=== PATIENT | female | born 1960 | race Caucasian/White ===

== ENCOUNTER → 2019-09-24 17:25 | Outpatient (CLI) | payer MEDICAID, SELFPAY ==
--- NOTE | ~2019-09-24 | XR_ITS ---
XR foot LT min 3V 09/24/2019 17:58 INDICATION: Left foot pain PROCEDURE: 4 views left foot COMPARISON: No prior studies for comparison. FINDINGS: Fracture, dislocation or subluxation is not identified. Osteopenia. Lisfranc joint intact. There is moderate osteoarthritis first MTP joint. Small degenerative calcaneal enthesophyte at the pl orlin surface. The soft tissues appear within normal limits. No foreign bodies are identified. IMPRESSION: 1: NO ACUTE BONE OR JOINT ABNORMALITY IDENTIFIED. Reviewed, dictated and finalized at location A.
--- NOTE | ~2019-09-24 | XR_ITS ---
XR lumbar spine min 4V 09/24/2019 17:58 Indication: Low back pain Procedure: 5 views lumbar spine Comparison: No prior studies for comparison. Findings: There is moderate disc narrowing at L3-4, L4-5 and L5-S1 with vacuum phenomena at L4-5. The re is moderate multilevel facet hypertrophy. No acute fracture or traumatic malalignment. Mild levocu rvature of the lumbar spine centered at L4. There are cholecystectomy clips. Sacral foramen are symme tric. Impression: 1: Moderate lumbar spondylosis. Reviewed, dictated and finalized at location A. Impression: 1: Moderate lumbar spondylosis.
== END ==
PROVIDERS: PCP Family Medicine; Visit Provider Family Medicine
DX: G89.29 Other chronic pain (principal); M79.672 Pain in left foot; M54.41 Lumbago with sciatica, right side; M47.896 Other spondylosis, lumbar region
CPT/HCPCS: 72110; 73630

== ENCOUNTER 2020-03-31 14:10 | Outpatient (CLI) | payer OTHER, SELFPAY ==
--- NOTE | ~2020-03-31 | XR_ITS ---
EXAMINATION: XR chest 2V DATE: 03/31/2020 14:41 INDICATION: Chronic obstructive pulmonary disease with acute exacerbation. TECHNIQUE: Frontal and lateral views of the chest were obtained. COMPARISON: Chest single view 05/05/2012 FINDINGS: The lungs are hyperexpanded with lucencies in the upper lungs, consistent with emphysema. T here is mild atelectasis at left lung base. No pleural effusion or pneumothorax. The heart size is no rmal. IMPRESSION: 1. Mild atelectasis at left lung base. 2. Emphysema. Reviewed, dictated and finalized at location A.
== END 2020-03-31 14:11 | disposition home or self-care (01) ==
PROVIDERS: PCP Family Medicine; Visit Provider Nurse Practitioner
DX: J44.1 Chronic obstructive pulmonary disease with (acute) exacerbation (principal); J98.11 Atelectasis; J43.9 Emphysema, unspecified
CPT/HCPCS: 71046

== ENCOUNTER 2020-04-06 08:13 | Outpatient (CLI) | payer OTHER, SELFPAY ==
--- NOTE | ~2020-04-06 | MM_ITS ---
EXAMINATION: MM screening rossy BI w delta HISTORY: Screening mammogram TECHNIQUE: Craniocaudal and mediolateral oblique 3-D tomosynthesis images were obtained and synthetic 2-D images were generated. CAD analysis was submitted and interpreted. COMPARISON: 12/30/2018, 12/06/2017, 09/15/2016 bilateral digital screening mammogram examinations BREAST PARENCHYMAL COMPOSITION: The breasts are almost entirely fatty. FINDINGS: There is no evidence of suspicious mass, calcification, or architectural distortion to sugg est malignancy in either breast. There has been no suspicious interval change. IMPRESSION: 1. No mammographic evidence of malignancy. 2. Recommend routine screening mammography in one year. BI-RADS Category 1: Negative Reviewed, dictated and finalized at location A.
== END 2020-04-06 08:14 | disposition home or self-care (01) ==
LOC: ANHIMG 08:16
PROVIDERS: PCP Family Medicine; Visit Provider Nurse Practitioner Obstetrics & Gynecology
DX: Z12.31 Encounter for screening mammogram for malignant neoplasm of breast (principal)
CPT/HCPCS: 77063; 77067

== ENCOUNTER 2020-05-12 13:17 | Outpatient (CLI) | payer OTHER, SELFPAY ==
[2020-05-12 14:05] VITALS: PULSE 100; O2SAT 93
[2020-05-12 14:10] VITALS: PULSE 105; O2SAT 85
[2020-05-12 14:15] VITALS: PULSE 107; O2SAT 87
[2020-05-12 14:20] VITALS: PULSE 118; O2SAT 90
[2020-05-12 14:35] VITALS: PULSE 102; O2SAT 93
--- NOTE | 2020-05-12 14:42 | HOMEO2EVAL ---
Home Oxygen Evaluation RC: Home Oxygen (O2) Evaluation Start: 05/12/20 14:33 Freq: Status: Active Protocol: RPE Activity Type Activity Date Activity User E-Sign Co-Sign Detail Recorded Client Recorded Date Recorded By Document 05/12/20 14:05 DJO [id number] 05/12/20 14:35 DJO Document 05/12/20 14:10 [email or web address] [id number] 05/12/20 14:35 DJO Document 05/12/20 14:15 [email or web address] [email or web address] 05/12/20 14:35 DJO Document 05/12/20 14:20 [email or web address] [email or web address] 05/12/20 14:35 DJO Document 05/12/20 14:35 [email or web address] [id number] 05/12/20 14:35 DJO 05/12/20 05/12/20 05/12/20 14:05 14:10 14:15 Home O2 Evaluation Test Phase Resting Exercise Exercise Oxygen Delivery Room Air Room Air Nasal Cannula Oxygen Flow Rate (L/min) 1 Pulse Oximetry (90-100 %) 93 85 L 87 L Pulse Rate (60-100 beats/min) 100 105 H 107 H Activity Tolerance Rating of Perceived Dyspnea (PD) Ambulation Distance (feet) Treatment Charges O2 Evaluation 05/12/20 05/12/20 14:20 14:35 Home O2 Evaluation Test Phase Exercise Resting Oxygen Delivery Nasal Cannula Room Air Oxygen Flow Rate (L/min) 2 Pulse Oximetry (90-100 %) 90 93 Pulse Rate (60-100 beats/min) 118 H 102 H Activity Tolerance Fair Rating of Perceived Dyspnea (PD) +3 Moderate Difficulty, But Can Continue Ambulation Distance (feet) 300 Treatment Charges
--- NOTE | 2020-05-15 12:50 | WPDPFTINT ---
PFT Interpretation PFT Interpretation: This PFT met all criteria for ATS standards and reproducibility FEV/FVC post bronchodilator 42% FEV1 31% or 0.79 liters FVC 56% or 1.90 liters TLC 136% or 7.50 liters RV 261% RV/TLC 73% DLCO 27% when adjusted for alveolar volume but not adjusted for hemoglobin Flow volume loops showed severe expiratory coving Impression: Severe airflow obstruction with hyperinflation, air trapping and severely reduced diffusion capacity. This pattern is suggestive of COPD. Clinical correlation is advised.
== END 2020-05-12 13:18 | disposition home or self-care (01) ==
LOC: ANHPFT 13:20
PROVIDERS: PCP Family Medicine; Visit Provider Nurse Practitioner
DX: J44.9 Chronic obstructive pulmonary disease, unspecified (principal); R94.2 Abnormal results of pulmonary function studies
CPT/HCPCS: 94060; 94618; 94726; 94729

== ENCOUNTER → 2020-10-05 12:10 | Outpatient (CLI) | payer OTHER, SELFPAY ==
--- NOTE | ~2020-10-05 | XR_ITS ---
XR knee LT 3V DATE: 10/05/2020 12:29 INDICATION: Left knee pain TECHNIQUE: [place], AP and crosstable lateral views COMPARISON: None FINDINGS: No fracture or dislocation or joint effusion. There is moderate loss of medial compartment joint space height. No radiopaque intra-articular loose body or chondrocalcinosis. No periosteal reac tion or bone destruction. IMPRESSION: Moderate loss of height of medial compartment joint space Reviewed, dictated and finalized at location B.
== END ==
PROVIDERS: PCP Family Medicine; Visit Provider Family Medicine
DX: M25.562 Pain in left knee (principal)
CPT/HCPCS: 73562

== ENCOUNTER 2020-10-27 14:48 | Outpatient (RCR) | payer OTHER, SELFPAY ==
--- NOTE | 2020-10-27 15:46 | PCPTNOTE ---
pt to dept for PT lymphedema evaluation. Talked with pt, she has an open wound over L lower leg ~ 3 cm wide and has orders for wound care clinic. Discussed with pt that she needs to have wound closed before have lymphedema treatment to LE's; she also has orders for pulmonary rehab for new oxygen use and COPD diagnosis. Talked with pt about 20 minutes, about lymphedema, wound care, issued lymphedema handout and general LE precautions. She asked questions and voiced understanding of above. I will contact Dr office and inform of above, and when wound is closed, to start lymphedema treatment.
== END 2020-10-27 15:48 | disposition home or self-care (01) ==
LOC: ANHPT 14:48
PROVIDERS: PCP Family Medicine; Visit Provider Family Medicine
DX: I87.2 Venous insufficiency (chronic) (peripheral) (principal); M25.562 Pain in left knee; M25.551 Pain in right hip
CPT/HCPCS: 99199

== ENCOUNTER 2020-11-07 10:00 | Inpatient (IN) | payer OTHER, SELFPAY ==
[2020-11-07] VITALS (9 sets, daily range): BP systolic 103–144; BP diastolic 60–86; PULSE 95–109; RESP 16–20; TEMP 35.6–36.4; O2SAT 94–100; BMI 38.5
--- NOTE | ~2020-11-07 | NM_ITS ---
EXAMINATION: NM renal flow and function DATE: 11/18/2020 08:51 INDICATION: Acute renal injury TECHNIQUE: 10 mCi Tc-99m MAG3 was administered IV. The patient was scanned in the supine position. A posterior abdominal radionuclide angiogram was obtained. A subsequent time course of static images o f the kidneys, ureters, and bladder was obtained. COMPARISON: None FINDINGS: The posterior abdominal radionuclide angiogram and sequential static images show normal size, positio n, and morphology of the kidneys. No central photopenic defect to suggest hydronephrosis. Peak renal parenchymal uptake was >30 min in left kidney and >30 min in right kidney (normal peak 3-5 minutes) w ith continually rising activity curves at both kidneys. The relative early renal uptake was 46% on t he left and 54% on the right (<40% is abnormal). No abnormalities of the ureters or bladder are seen . IMPRESSION: 1. Symmetric kidney function. 2. Marked delay in activity clearance from both kidneys with continually rising renal activity curve s throughout the 30 minutes of imaging consistent with severe bilateral nonspecific nephropathy. Reviewed, dictated and finalized at location A. IMPRESSION: 1. Symmetric kidney function. 2. Marked delay in activity clearance from both kidneys with continually risin g renal activity curves throughout the 30 minutes of imaging consistent with se maciej bilateral nonspecific nephropathy.
--- NOTE | ~2020-11-07 | CT_ITS ---
EXAMINATION: CT tibia/fibula LT wo con DATE: 11/07/2020 17:35 INDICATION: Cellulitis TECHNIQUE: High resolution computed tomography (CT) of the left lower leg was performed without intra venous contrast. Additional sagittal and coronal reconstructions were performed. Automated exposure c ontrol and iterative reconstruction technique were employed. The dose-length product was 895.26 mGy-c m. COMPARISON: Left knee radiographs dated 10/05/2020 FINDINGS: Bone alignment is normal. No fracture. Mild osteoarthritis in the medial compartment of the left knee . No left knee joint effusion. Small enchondroma in the distal femur. No cortical erosions or periost eal reaction. There is skin thickening and diffuse subcutaneous edema mild at the cephalad aspect of the lower leg in increasing in severity extending to the ankle and over the visualized portion of the mid and hindfoot. There is a deep skin ulceration at the medial aspect of the distal lower leg. No m ore remote soft tissue gas to suggest necrotizing fasciitis. No ankle joint effusion. IMPRESSION: 1. Deep skin ulceration at the medial aspect of the distal lower leg with diffuse skin thickening and subcutaneous edema throughout the lower leg consistent with given history of cellulitis. 2. Mild osteoarthritis in the medial compartment of the left knee. No acute osseous abnormality. Reviewed, dictated and finalized at location A. IMPRESSION: 1. Deep skin ulceration at the medial aspect of the distal lower leg with diffu se skin thickening and subcutaneous edema throughout the lower leg consistent w ith given history of cellulitis. 2. Mild osteoarthritis in the medial compartment of the left knee. No acute oss eous abnormality.
--- NOTE | ~2020-11-07 | XR_ITS ---
EXAMINATION: XR fl guide central line place EXAM DATE: 11/18/2020 15:39 INDICATION: Insertion of tunneled dialysis catheter. TECHNIQUE: Fluoroscopy used during XR fl guide central line place performed by Dr. Gurpreet Franklin MD. Radiologist was not present for the imaging or procedure. Total fluoroscopic time of 108 second s. The DAP for this procedure was 0.19 mGym2. A total of 2 images sent to PACS from the exam. Corre lation is made to preoperative chest x-ray. FINDINGS: Frontal image available demonstrates tip of dialysis catheter projecting over the cavoatri al junction. Correlate with procedure note. IMPRESSION: Fluoroscopy used during dialysis catheter placement. Reviewed, dictated and finalized at location B.
--- NOTE | ~2020-11-07 | XR_ITS ---
EXAMINATION: XR chest port-a-cath/central EXAM DATE: 11/18/2020 15:59 INDICATION: Tunneled catheter insertion. TECHNIQUE: Portable AP frontal chest x-ray was obtained. Comparison is made to prior examination from earlier same date. FINDINGS: There is a right-sided IJ approach double lumen dialysis catheter, tip projecting over the cavoatrial junction. Some chronic hyperinflation. Linear left basilar atelectasis. No confluent conso lidation, pneumothorax or pleural effusion suspected. Cardiomediastinal silhouette is normal. Probabl e bilateral calcific tendinosis of rotator cuff. IMPRESSION: 1. No evidence postprocedure pneumothorax. 2. Catheter tip at expected position. 3. Left basilar subsegmental atelectasis. 4. Hyperinflation. Reviewed, dictated and finalized at location B.
--- NOTE | ~2020-11-07 | XR_ITS ---
EXAMINATION: XR abdomen obstructive series DATE: 11/11/2020 15:48 INDICATION: Nausea TECHNIQUE: Supine and upright views of the abdomen. FINDINGS: 09/01/2008 The visualized lung parenchyma is normal.. There is a nonobstructive bowel gas pattern. Gas and stool are seen throughout the colon to the level of the rectum. There is no free air. There is left basil ar atelectasis. Small left pleural effusion. IMPRESSION: 1. No acute abdominal abnormality. 2: Left basilar atelectasis. 2: Small left pleural effusion. Reviewed, dictated and finalized at location B.
--- NOTE | ~2020-11-07 | XR_ITS ---
EXAMINATION: XR chest 1V portable INDICATION: Fluid overload TECHNIQUE: Portable AP chest at 1301 hours COMPARISON: 03/31/2020 FINDINGS: The lungs are hyperinflated but free of acute opacities. There is no pleural effusion or pn eumothorax. The cardiomediastinal silhouette is normal. There is calcified atherosclerosis. IMPRESSION: 1. No acute cardiopulmonary abnormality. Reviewed, dictated and finalized at location A.
--- NOTE | ~2020-11-07 | US_ITS ---
EXAMINATION:US venous doppler LE LT INDICATION:Left lower extremity swelling TECHNIQUE: Multiple grayscale, color flow and Doppler images of the left lower extremity deep venous systems were obtained and reviewed. COMPARISON:No prior studies for comparison. FINDINGS: The common femoral, superficial femoral and popliteal veins demonstrate normal respiratory variation, augmentation and compressibility. Color flow is also seen within the posterior tibial, pe roneal, greater saphenous and profunda veins. IMPRESSION: 1: No lower extremity deep venous thrombosis. Reviewed, dictated and finalized at location B.
--- NOTE | ~2020-11-07 | US_ITS ---
US renal BI 11/11/2020 11:46 Procedure: Realtime transabdominal ultrasound of the kidneys and bladder. Indication: Acute renal insufficiency Comparison: No prior studies Findings: Renal echotexture is normal bilaterally without hydronephrosis, contour deforming mass or r enal calculus. The right kidney measures 9.9 cm and left kidney measures 9.9 cm. Bladder is not well distended for evaluation of wall thickening. Impression: 1: Unremarkable renal ultrasound. No stones, masses or hydronephrosis. Reviewed, dictated and finalized at location B. Impression: 1: Unremarkable renal ultrasound. No stones, masses or hydronephrosis.
[2020-11-07 10:17] LABS: Basophils Percent Auto 0.4 % (0.2-1.2); Eosinophils Absolute Auto 0.1 K/mm3 (0-0.3); Eosinophils Percent Auto 1.3 % (0-4.4); Hematocrit 36.6 % (37.0-47.0); Hemoglobin 11.4 g/dL (12.0-15.0); Immature Granulocyte Absolute 0.05 K/mm3 (0.00-0.031); Immature Granulocyte Percent A 0.7 % (0-0.5); Lymphocytes Absolute Auto 1.42 K/mm3 (0.9-3.2); Lymphocytes Percent Auto 18.9 % (18.3-44.2); Mean Corpuscular HGB Conc 31.1 g/dl (32-36); Mean Corpuscular Volume 93.1 fl (80-100); Mean Platelet Volume 9.3 fl (7.4-10.4); Monocytes Absolute Auto 0.7 K/mm3 (0.1-0.6); Monocytes Percent Auto 8.7 % (2.6-8.5); Neutrophils Absolute Auto 5.3 K/mm3 (1.3-6.7); Platelet Count Result 369 k/mm3 (150-375); Red Blood Count 3.93 M/mm3 (4.2-5.4); Red Cell Distribution Width 12.1 % (11.5-14.5); White Blood Count 7.5 K/mm3 (4.5-10.0)
[2020-11-07 10:29] LABS: Anion Gap 5 mmol/L (8-16); Blood Urea Nitrogen 31 mg/dL (7-17); Calcium 9.4 mg/dL (8.4-10.2); Carbon Dioxide 37 mmol/L (22-30); Chloride 99 mmol/L (98-107); Estimated CRCL calculation 63 ml/min; Estimated Glomerular Filt Rate 51; Glucose 116 mg/dL (65-105); Potassium 3.9 mmol/L (3.4-5.0); Sodium 141 mmol/L (137-145)
--- NOTE | 2020-11-07 11:37 | ED.WOUNDLAC ---
HPI - Wound/Laceration General Chief Complaint: Extremity Injury, Lower Stated Complaint: left leg cellulitis Time Seen by Provider: 11/07/20 11:36 History of Present Illness HPI narrative: CHronic LLE wound treated by wound care. On clindamycin since 11/02. Today at wound care they were concerned due to increased swelling and redness around the wound. No fever, chills, nausea, vomiting. Related Data Home Medications Medication Instructions Recorded Confirmed cyanocobalamin (vitamin B-12) 1,000 mcg PO DAILY 07/28/20 11/07/20 1,000 mcg tablet vitamins A,C,I-wyez-rrjkxr 14,320 1 cap PO BID 08/10/20 11/07/20 unit-226 mg-200 unit capsule fluticasone propion-salmeterol 1 inh INHALATION Q12H 11/07/20 11/07/20 [Wixela Inhub] furosemide 20 mg PO BID PRN 11/07/20 11/07/20 Allergies Allergy/AdvReac Type Severity Reaction Status Date / Time cefuroxime Allergy Unknown Fever Verified 01/23/19 13:30 hydromorphone Allergy Unknown Low blood Verified 11/12/18 14:30 pressure ioversol Allergy Unknown Urticaria Verified 11/12/18 14:28 meperidine Allergy Unknown Low blood Verified 11/12/18 14:28 pressure oxycodone Allergy Unknown INCREASED Verified 11/21/16 19:11 PAIN Sulfa (Sulfonamide Allergy Unknown Joint pain Verified 11/12/18 14:27 Antibiotics) sulfanilamide Allergy Unknown Unknown Verified 11/07/20 11:42 levofloxacin [From Levaquin] AdvReac Muscle Pain Verified 11/07/20 11:42 Contrast Media Allergy Intermediate hives Uncoded 06/09/16 11:03 HYDROMORPHONE HCL AdvReac Intermediate Low blood Uncoded 11/07/20 15:23 pressure Review of Systems Review of Systems: All systems reviewed & are unremarkable except as noted in HPI and below Constitutional: Constitutional: Denies chills, Denies fever(s) and Denies weakness Eyes: Eyes: Reports no additional eye complaints ENT: Reports system reviewed and no additional complaints, except as documented Cardiovascular: Cardiovascular: Denies chest pain Respiratory: Respiratory: Denies dyspnea Gastrointestinal: Gastrointestinal: Denies abdominal pain, Denies nausea and Denies vomiting Genitourinary: Genitourinary: Reports no additional female genitourinary complaints Musculoskeletal: Musculoskeletal: Denies back pain Neurologic: Denies dizziness, Denies numbness and Denies weakness [facility] Past Medical History Medical History Abnormal fasting glucose Acute bronchitis Acute pain of left knee Benign essential HTN BMI greater than 40 Cellulitis, leg Chronic bilateral low back pain with right-sided sciatica Chronic depression Chronic neck pain Chronic pain in left foot COPD (chronic obstructive pulmonary disease) Dry skin Edema of both lower extremities due to peripheral venous insufficiency Gastro-esophageal reflux disease without esophagitis Hypertension Lung malignancy non-small cell lung cancer and left lower lobe treated with radiation treatment December 28, 2016 Obstructive sleep apnea Osteoarthritis of right hip Stage 4 very severe COPD by GOLD classification pulmonary function study on March 13, 2019 reveals very severe COPD Venous stasis dermatitis of both lower extremities Venous stasis ulcer Venous ulcer of leg Vitamin B12 deficiency anemia Vitamin D deficiency, unspecified Surgical History Surgical History History of appendectomy History of cholecystectomy History of nasal surgery Family History Family History Mother Diabetes mellitus Acute myocardial infarction, Onset Age: 76 Family history of coronary artery disease Family history of chronic obstructive pulmonary disease Hypertension Cerebrovascular accident Sibling Hypertension Grandparent Hypertension, Onset Age: 64 Cerebrovascular accident, Onset Age: 64 Father Family history of cardiovascu
--- NOTE | 2020-11-07 11:57 | PC.NURSE ---
Pt to radiology at this time.
[2020-11-07 12:11] LABS: Alanine Aminotransferase 21 U/L (4-35); Alkaline Phosphatase 101 U/L (38-126); Aspartate Amino Transferase 26 U/L (14-36); Bilirubin,Total 0.2 mg/dL (0.2-1.3)
--- NOTE | 2020-11-07 15:00 | PC.NURSE ---
This patient, Ricardo Mendez, was admitted to Medical Room 346-01. Patient/family oriented to hospital policies and general routines including ID bracelet, bed and alarms, visiting hours, pain management, procedures, bathroom and other care routines, personal items, smoking policy, room service/diet, and visiting hours. Information on how to activate the Rapid Response Team has been discussed. Patient/Family are encouraged to report perceived risks to care and to ask questions if they do not understand what they are told or what they should do.
--- NOTE | 2020-11-07 15:45 | PM.IMHP ---
H&P: HPI History of Present Illness Date/Time: 11/07/20 15:45 This 59-year-old female who prsent to the ED with wound to her left leg. She has chronic left lower extremity edema for unclear reason since past 2 years. she states approximately 2 weeks ago her dog bumped into her left leg and she developed a large blood blister to the area. Then the area started to pop up and started draining. she was then sent to wound care and getting dressing changes. she also has been on clindamycin oral which she is already taking. she reports inspite of this the wound continued to drain and increased the swelling in her legs. she rpeorts mild fever but no chills. no abdominal pain, nausea, vomitng. she consuelo oxygen for her underlyign COPD since july. she quitted smoking 2015. Chief Complaint: left leg swelling and non healing ulcer Review of Systems Review of Systems: Narrative: - CONSTITUTIONAL: Denies weight loss, fever and chills. - HEENT: Denies changes in vision and hearing - RESPIRATORY: Denies SOB and cough. - CV: Denies palpitations and CP. - GI: Denies abdominal pain, nausea, vomiting and diarrhea. - : Denies dysuria and urinary frequency. - MSK: Denies myalgia and joint pain. - SKIN: Denies rash and pruritus. - NEUROLOGICAL: Denies headache and syncope. - PSYCHIATRIC: Denies recent changes in mood. Denies anxiety and depression. All systems reviewed & are unremarkable except as noted in HPI and below PMFSH Past Medical History Medical History (Updated 11/02/20 @ 10:41 by Perry Pang MD) Abnormal fasting glucose Acute bronchitis Acute pain of left knee Benign essential HTN BMI greater than 40 Cellulitis, leg Chronic bilateral low back pain with right-sided sciatica Chronic depression Chronic neck pain Chronic pain in left foot COPD (chronic obstructive pulmonary disease) Dry skin Edema of both lower extremities due to peripheral venous insufficiency Gastro-esophageal reflux disease without esophagitis Hypertension Lung malignancy non-small cell lung cancer and left lower lobe treated with radiation treatment December 28, 2016 Obstructive sleep apnea Osteoarthritis of right hip Stage 4 very severe COPD by GOLD classification pulmonary function study on March 13, 2019 reveals very severe COPD Venous stasis dermatitis of both lower extremities Venous stasis ulcer Venous ulcer of leg Vitamin B12 deficiency anemia Vitamin D deficiency, unspecified Surgical History Surgical History History of appendectomy History of cholecystectomy History of nasal surgery Family History Family History (Updated 11/07/20 @ 15:39 by Viry Armendariz RN) Mother Diabetes mellitus Acute myocardial infarction, Onset Age: 76 Family history of coronary artery disease Family history of chronic obstructive pulmonary disease Hypertension Cerebrovascular accident Sibling Hypertension Grandparent Hypertension, Onset Age: 64 Cerebrovascular accident, Onset Age: 64 Father Family history of cardiovascular disease Patient's father is in good health Epilepsy Social History Social History Years smoked: 40 Smoking status: Former smoker Smoking end date: 03/15/16 Alcohol intake: former Substance use: never Gender identity (if verbalized by the patient): Female Spiritual care concerns: No Meds Home Medications and Allergies Home Medications Medication Instructions Recorded Confirmed Type cyclobenzaprine 10 mg tablet 10 mg PO TID PRN #90 tablet 07/13/19 11/07/20 Rx lisinopril 40 mg tablet 40 mg PO DAILY #90 tablet 11/03/19 11/07/20 Rx hydrochlorothiazide 12.5 mg tablet 12.5 mg PO DAILY #90 tablet 01/27/20 11/07/20 Rx meloxicam 15 mg tablet 15 mg PO DAILY PRN #90 tablet 01/27/20 11/07/20 Rx cyanocobalamin (vitamin B-12) 1,000 mcg PO DAILY 07/28/20 11/07/20 History 1,[facility] [place]
[2020-11-07] MEDS: CLINDAMYCIN 900 MG/D5W 50 ML 900 MG/50 ML PIGGYBACK 50 MG IVPB ×2 (16:05→23:56)
--- NOTE | 2020-11-07 16:28 | PM.CNGS ---
Assessment and Plan Assessment and plan (1) Venous stasis ulcer: Code(s): I83.009 - Varicose veins of unspecified lower extremity with ulcer of unspecified site; L97.909 - Non-pressure chronic ulcer of unspecified part of unspecified lower leg with unspecified severity Status: Acute Assessment and Plan: I have reviewed the diagnostic workup including the labs and venous ultrasound. Patient has a nonhealing wound on the left lower extremity and has significant edema to this extremity. The wound appears to be tracking medially and inferiorly and will need to be further debrided and incised and drained. I do not think we will be able to adequately perform this at the bedside with local anesthetic, therefore I have recommended IV sedation to allow for adequate incision and drainage with debridement. Patient may eventually require a wound VAC to help with granulation of the wound and closure. She will also need continued care of her lower extremity edema to help with healing. Will have patient elevate left lower extremity while in bed. Will plan for debridement of the wound in the OR tomorrow. (2) Cellulitis, leg: Code(s): L03.119 - Cellulitis of unspecified part of limb Status: Acute Assessment and Plan: Continue IV broad-spectrum antibiotics per hospitalist (3) BMI greater than 40: Status: Acute (4) Obstructive sleep apnea: Code(s): G47.33 - Obstructive sleep apnea (adult) (pediatric) Status: Acute (5) Stage 4 very severe COPD by GOLD classification: Code(s): J44.9 - Chronic obstructive pulmonary disease, unspecified Status: Acute History of Present Illness Consult details Consult date: 11/07/20 Reason for consult: wound care Requesting physician: Vincenzo Pagan MD Narrative: This is a 59-year-old woman who presents with a wound on her left lower extremity. She states that about 2 weeks ago her dog ran into her leg and she developed a bump over that area. It appeared that it was likely a blood blister that eventually popped and began draining. She has had a difficult time healing from this because she has chronic left lower extremity edema. She has a lot of clear liquid drainage from the wound as well as bloody drainage. She has noticed increasing redness surrounding the area recently as well. She does not know why she has chronic left lower extremity edema but states that it is probably related to poor circulation from smoking correction. She did quit smoking about 5 years ago. Review of Systems Review of Systems: All systems reviewed & are unremarkable except as noted in HPI and below Eyes: Eyes: Denies change in vision ENT: Denies hearing loss, Denies neck pain and Denies sore throat Cardiovascular: Cardiovascular: Denies chest pain and Denies dyspnea Respiratory: Respiratory: Denies cough, Denies dyspnea and Denies wheezing Genitourinary: Genitourinary: Denies hematuria and Denies dysuria Musculoskeletal: Musculoskeletal: Denies arthralgias, Denies joint swelling and Denies neck pain Allergic/Immunologic: Allergic/Immunologic: Denies wheezing [facility] Past Medical History Medical History Abnormal fasting glucose Acute bronchitis Acute pain of left knee Benign essential HTN BMI greater than 40 Cellulitis, leg Chronic bilateral low back pain with right-sided sciatica Chronic depression Chronic neck pain Chronic pain in left foot COPD (chronic obstructive pulmonary disease) Dry skin Edema of both lower extremities due to peripheral venous insufficiency Gastro-esophageal reflux disease without esophagitis Hypertension Lung malignancy non-small cell lung cancer and left lower lobe treated with radiation treatment December 28, 2016 Obstructive sleep apnea Osteoarthritis of right hip Stage 4 very severe COPD by GOLD classification pulmonary function study on March 13, 2019 reveals very severe C
--- NOTE | 2020-11-07 16:37 | WPDANESEPP ---
Anes - Eval Pre Procedure Procedure: Left lower extremity debridement Date/Time: 11/07/20 16:37 Surgeon: Arthur Preop Diagnosis: Left lower extremity infection Pre Op Diagnosis: cellulitis Patient Data Age: 59 Gender: F Height: 1.7 m Weight: 115 kg Last Vital Signs Temp 35.6 C L 11/07/20 15:13 Pulse 107 H 11/07/20 15:13 Resp 16 11/07/20 15:13 BP 138/65 11/07/20 15:13 Pulse Ox 100 11/07/20 15:13 Allergies Allergy/AdvReac Type Severity Reaction Status Date / Time cefuroxime Allergy Unknown Fever Verified 01/23/19 13:30 hydromorphone Allergy Unknown Low blood Verified 11/12/18 14:30 pressure ioversol Allergy Unknown Urticaria Verified 11/12/18 14:28 meperidine Allergy Unknown Low blood Verified 11/12/18 14:28 pressure oxycodone Allergy Unknown INCREASED Verified 11/21/16 19:11 PAIN Sulfa (Sulfonamide Allergy Unknown Joint pain Verified 11/12/18 14:27 Antibiotics) sulfanilamide Allergy Unknown Unknown Verified 11/07/20 11:42 levofloxacin [From Levaquin] AdvReac Muscle Pain Verified 11/07/20 11:42 Contrast Media Allergy Intermediate hives Uncoded 06/09/16 11:03 HYDROMORPHONE HCL AdvReac Intermediate Low blood Uncoded 11/07/20 15:23 pressure Home Medications Medication Instructions Recorded Confirmed Type cyclobenzaprine 10 mg tablet 10 mg PO TID PRN #90 tablet 07/13/19 11/07/20 Rx lisinopril 40 mg tablet 40 mg PO DAILY #90 tablet 11/03/19 11/07/20 Rx hydrochlorothiazide 12.5 mg tablet 12.5 mg PO DAILY #90 tablet 01/27/20 11/07/20 Rx meloxicam 15 mg tablet 15 mg PO DAILY PRN #90 tablet 01/27/20 11/07/20 Rx cyanocobalamin (vitamin B-12) 1,000 mcg PO DAILY 07/28/20 11/07/20 History 1,000 mcg tablet vitamins A,C,D-txas-abyxvk 14,320 1 cap PO BID 08/10/20 11/07/20 History unit-226 mg-200 unit capsule montelukast 10 mg tablet 10 mg PO .qhs #90 tablet 09/06/20 11/07/20 Rx albuterol sulfate 90 mcg/actuation 1 inh INHALATION Q4H PRN #18 gm 09/23/20 11/07/20 Rx aerosol inhaler tiotropium bromide 18 mcg capsule 1 cap INHALATION DAILY #30 10/05/20 11/07/20 Rx with inhalation device inhalation silver sulfadiazine 1 % topical 1 applic TOPICAL DAILY #100 g 10/12/20 11/07/20 Rx cream hydrocodone 7.5 mg-acetaminophen 1 tablet PO Q4H PRN #180 tablet 10/31/20 11/07/20 Rx 325 mg tablet clindamycin HCl 300 mg capsule 300 mg PO Q8H #30 cap 11/02/20 11/07/20 Rx potassium chloride 10 mEq 10 meq PO BID #180 cap 11/02/20 11/07/20 Rx capsule,extended release fluticasone propion-salmeterol 1 inh INHALATION Q12H 11/07/20 11/07/20 History [Wixela Inhub] furosemide 20 mg PO BID PRN 11/07/20 11/07/20 History Laboratory Tests 11/07/20 11/07/20 11/07/20 10:09 10:09 11:54 WBC 7.5 K/mm3 K/mm3 (4.5-10.0) RBC 3.93 M/mm3 L M/mm3 (4.2-5.4) Hgb 11.4 g/dL L g/dL (12.0-15.0) Hct 36.6 % L % (37.0-47.0) MCV 93.1 fl fl (80-100) MCH 29.0 pg pg (26-34) MCHC 31.1 g/dl L g/dl (32-36) RDW 12.1 % % (11.5-14.5) Plt Count 369 k/mm3 k/mm3 (150-375) MPV 9.3 fl fl (7.4-10.4) Immature Gran % (Auto) 0.7 % H % (0-0.5) Neut % (Auto) 70.0 % % (45.5-73.1) Lymph % (Auto) 18.9 % % (18.3-44.2) [place] % (Auto) 8.7 % H % (2.6-8.5) Eos % (Auto) 1.3 % % (0-4.4) Baso % (Auto) 0.4 % % (0.2-1.2) Lymph # (Auto) 1.42 K/mm3 K/mm3 (0.9-3.2) [place] # (Auto) 0.7 K/mm3 H K/mm3 (0.1-0.6) Eos # (Auto) 0.1 K/mm3 K/mm3 (0-0.3) Baso # (Auto) 0.0 K/mm3 K/mm3 (0.0-0.1) Abs Immat Gran (auto) 0.05 K/mm3 H K/mm3 (0.00-0.031) Absolute Neuts (auto) 5.3 K/mm3 K/mm3 (1.3-6.7) Absolute Nucleated RBC 0.0 K/mm3 K/mm3 (0.0-0.012) Nucleated RBC % 0.0 % % (0.0-0.2) Sodium 141 mmol/L mmol/L (137-145) Potassium 3.9 mmol/L mmol/L (3.4-5.0)
[2020-11-07] MEDS: POTASSIUM CHLORIDE 10 MEQ TABLET.ER PO (17:00)
[2020-11-07] MEDS: HYDROcodone/acetaminophen (*CRX) 7.5-325 MG TABLET 1 TAB PO ×2 (17:08→21:07)
[2020-11-07 17:15] LABS: Hemoglobin A1C 5.5 % (<5.7)
[2020-11-07] MEDS: ALBUTEROL SULFATE NEB 2.5 MG/0.5 ML INH 5 MG INHALATION (20:09)
[2020-11-07] MEDS: IPRATROPIUM BR 0.02% INH SOLN 0.5 MG/2.5 ML VIAL INHALATION (20:09)
[2020-11-07] MEDS: FLUTICASONE/SALMETEROL 230-21 MCG INHALER 1 PUFF 2 PUFF INHALATION (20:10)
[2020-11-07] MEDS: MONTELUKAST SODIUM 10 MG TABLET PO (20:54)
--- NOTE | 2020-11-07 22:46 | PHAR ---
PHARMACY VERIFIED: *USE FROM HOME* WIXELA 500/50 MG (FLUTICASONE PROP/SALMETEROL) INHALER INHALE 1 PUFF TWICE DAILY
[2020-11-08] VITALS (22 sets, daily range): BP systolic 97–143; BP diastolic 45–82; PULSE 86–106; RESP 11–20; TEMP 35.6–37.1; O2SAT 94–100
[2020-11-08] MEDS: HYDROcodone/acetaminophen (*CRX) 7.5-325 MG TABLET 1 TAB PO ×4 (01:10→23:43)
[2020-11-08] MEDS: ALBUTEROL SULFATE NEB 2.5 MG/0.5 ML INH 5 MG INHALATION ×4 (02:39→21:21)
[2020-11-08] MEDS: IPRATROPIUM BR 0.02% INH SOLN 0.5 MG/2.5 ML VIAL INHALATION ×4 (02:40→21:21)
[2020-11-08] MEDS: ACETAMINOPHEN 325 MG TABLET 650 MG PO (04:22)
[2020-11-08 06:06] LABS: Basophils Percent Auto 0.5 % (0.2-1.2); Eosinophils Absolute Auto 0.1 K/mm3 (0-0.3); Hematocrit 34.3 % (37.0-47.0); Hemoglobin 10.7 g/dL (12.0-15.0); Immature Granulocyte Absolute 0.03 K/mm3 (0.00-0.031); Immature Granulocyte Percent A 0.4 % (0-0.5); Lymphocytes Absolute Auto 1.32 K/mm3 (0.9-3.2); Lymphocytes Percent Auto 16.5 % (18.3-44.2); Mean Corpuscular HGB Conc 31.2 g/dl (32-36); Mean Platelet Volume 9.4 fl (7.4-10.4); Monocytes Absolute Auto 0.7 K/mm3 (0.1-0.6); Monocytes Percent Auto 8.9 % (2.6-8.5); Neutrophils Absolute Auto 5.8 K/mm3 (1.3-6.7); Neutrophils Percent Auto 72.7 % (45.5-73.1); Platelet Count Result 373 k/mm3 (150-375); Red Blood Count 3.69 M/mm3 (4.2-5.4); Red Cell Distribution Width 12.2 % (11.5-14.5)
[2020-11-08 06:19] LABS: Anion Gap 1 mmol/L (8-16); Blood Urea Nitrogen 17 mg/dL (7-17); Calcium 9.1 mg/dL (8.4-10.2); Carbon Dioxide 39 mmol/L (22-30); Chloride 99 mmol/L (98-107); Estimated CRCL calculation 78 ml/min; Estimated Glomerular Filt Rate > 60; Glucose 118 mg/dL (65-105); Potassium 3.9 mmol/L (3.4-5.0); Sodium 139 mmol/L (137-145)
--- NOTE | 2020-11-08 07:21 | PCWOUND ---
WOCN NOTE Patient was seen by the wound care nurses in the outpatient wound clinic prior to being sent to the ER for a more thorough exam. Received consult for left lower leg wound. Patient has General surgery consult, read Dr. Gibson's note from yesterday. Patient is scheduled for surgery today. Will follow patient after surgery.
[2020-11-08] MEDS: POTASSIUM CHLORIDE 10 MEQ TABLET.ER PO ×2 (08:45→17:57)
[2020-11-08] MEDS: CLINDAMYCIN 900 MG/D5W 50 ML 900 MG/50 ML PIGGYBACK 50 MG IVPB ×2 (08:46→23:21)
[2020-11-08] MEDS: lisinopriL 20 MG TABLET 40 MG PO (08:47)
[2020-11-08] MEDS: hydroCHLOROthiazide 12.5 MG CAPSULE PO (08:47)
[2020-11-08] MEDS: FUROSEMIDE 20 MG TABLET PO (08:47)
[2020-11-08] MEDS: CYANOCOBALAMIN 1,000 MCG TABLET 1000 MCG PO (08:48)
[2020-11-08] MEDS: ENOXAPARIN 40 MG/0.4 ML SYRINGE SUB-Q (08:48)
[2020-11-08] MEDS: LORazepam INJ (*CRX) 2 MG/ML VIAL 0.5 MG IV PUSH (11:07)
--- NOTE | 2020-11-08 13:29 | PM.IMPN ---
Progress Note: A&P Assessment and Plan (1) Cellulitis, leg: Code(s): L03.119 - Cellulitis of unspecified part of limb Status: Acute Assessment and Plan: patient presents with a small but very deep ulcer in the left lower extremity. No fevers. No elevated white count. left lower extremity Doppler negative for DVT. CT scan showing deep skin ulceration with diffuse skin thickening and subcutaneous edema throughout the lower leg consistent with cellulitis. Continue Zosyn and vancomycin. Also on clindamycin. Cultures have been collected and are pending. Patient to be taken for debridement today. Appreciate General surgery input. (2) Stage 4 very severe COPD by GOLD classification: Code(s): J44.9 - Chronic obstructive pulmonary disease, unspecified Status: Acute Assessment and Plan: Patient with severe COPD. No chest x-ray performed here. Patient remains on her 2 L chronically. Continue nebulizer treatments. Will hold Spiriva. (3) Chronic respiratory failure: Code(s): J96.10 - Chronic respiratory failure, unspecified whether with hypoxia or hypercapnia Status: Acute Assessment and Plan: Stable on 2 L O2 nasal cannula. Continue monitor. (4) Lung malignancy: Code(s): C34.90 - Malignant neoplasm of unspecified part of unspecified bronchus or lung Status: Acute Assessment and Plan: Hx of non small cell lung cancer and left lower lobe treated with radiation treatment December 2016. Stable (5) Benign essential HTN: Code(s): I10 - Essential (primary) hypertension Status: Acute Assessment and Plan: Patient's blood pressure was reviewed on 11/08 Blood pressure remains well controlled. Will continue current medications with HCTZ and lisinopril. (6) Obstructive sleep apnea: Code(s): G47.33 - Obstructive sleep apnea (adult) (pediatric) Status: Acute Assessment and Plan: Patient wear CPAP at night. Continue the same here. (7) DVT prophylaxis: Code(s): Z29.9 - Encounter for prophylactic measures, unspecified Status: Acute Assessment and Plan: Lovenox Subjective Date/time seen: 11/08/20 13:29 Interval history: 59yo female with COPD and chronic respiratory failure on 2L here for left calf infection. Assuming care. Chart reviewed. Patient feels leg looks better. She has noted increasing swelling to the leg prior to the admission. She does use Lasix as needed for intermittent chronic edema. She has a dry cough but no chest pain. She feels worse overall but mostly just anxious with upcoming procedure. She is waiting to be taken down for debridement soon. Exam Narrative: Exam Narrative: AF 97.6 143/69 92 18 97% 2L Gen - NARD lying semi recumbent in Chest - distant breath sounds. Few rhonchi in the bases. Normal respiratory rate CV - RRR with distant S1/S2. Abd - Soft, NT/ND, Positive BS Ext - left lower extremity edema noted. 2+ DP pulses on the right. Trace 1+ on the left due to the edema Psych - anxious and nervous. Skin - Minimal surrounding erythema but with extensive edema and a quarter-sized deep ulcer medial aspect of the left lower extremity. Objective Data Vital Signs Vital Signs: Vital Signs - 24 hr 11/07/20 13:55 11/07/20 15:13 11/07/20 19:50 Temperature 96.0 F L 97.6 F Pulse Rate 99 107 H 109 H Respiratory Rate 18 16 20 Blood Pressure 112/86 138/65 144/60 H Pulse Oximetry 100 100 97 11/07/20 20:00 11/07/20 20:10 11/07/20 20:13 Temperature Pulse Rate 95 95 Respiratory Rate 18 18 Blood Pressure Pulse Oximetry 100 97 11/07/20 20:20 11/08/20 02:42 11/08/20 02:51 Temperature Pulse Rate 96 97 91 Respiratory Rate 18 18 18 Blood Pressure Pulse Oximetry 11/08/20 04:15 11/08/20 07:28 11/08/20 07:38 Temperature 97.6 F Pulse Rate 100 86 88 Respiratory Rate 20 18 18 Blood Pressure 143/69 H Pulse O
--- NOTE | 2020-11-08 14:15 | WPDANESEFPP ---
Anes - Eval Final PreProcedure Day of Procedure 11/08/20 14:15 Patient weight: morbidly obese Heart: regular rate and rhythm Lungs: clear to auscultation and normal air movement Airway: Mallampati scale class II Neurological: alert and oriented Last oral intake: >/= 8 hours ASA classification: IV Emergent: no Anesthetic plan: proceed Anesthesia type and monitoring: general GIVS Informed Consent: The patient's anesthetic plan and its attendant risks and benefits were discussed with the patient/family/POA. Questions were solicited and answers provided to the satisfaction of the patient/family/POA.
--- NOTE | 2020-11-08 14:15 | PC.NURSE ---
Patient to OR per bed. Report to SUZANNE Bunch.
[2020-11-08] MEDS: LACTATED RINGERS 1,000 ML 30 ML IV CONT (14:31)
--- NOTE | 2020-11-08 14:37 | WPDHPUPDATE1 ---
History and Physical Update Update Date/Time: 11/08/20 14:37 History and Physical has been reviewed, including an updated exam of the patient. There are NO changes in the patient's condition. Risks, benefits, and alternatives have been discussed and questions answered. Patient agrees to proceed with procedure.
--- NOTE | 2020-11-08 15:29 | PC.NURSE ---
Observed care and reviewed charting by [facility] student nurse Elsi Ramos [phone]
[2020-11-08] MEDS: LIDO 1%/EPINEPHRINE 1:100,000 50 ML VIAL INFILTRATE (16:24)
--- NOTE | 2020-11-08 16:50 | P.OP_ITS ---
Procedure Note - Detailed Date of procedure: 11/08/20 Pre-op diagnosis: cellulitis, venous stasis ulcer LLE Post-op diagnosis: same Procedure performed: Sharp excisional debridement of left lower extremity ulcer measuring 5 cm x 6 cm including skin and subcutaneous fat Description of procedure: * Procedure as well as risks, benefits, and alternatives were discussed with the patient. Written consent was obtained and placed in chart prior to procedure. Patient was brought back to surgical suite. She was placed supine on operating table. Time-out was done to confirm patient and procedure. IV sedation was then administered by the Anesthesia Department. Her left leg was prepped and draped in sterile fashion using Betadine prep. 1% lidocaine with epinephrine was infiltrated locally around the left lower extremity wound. Sharp debridement was performed using a 15 blade scalpel around the wound. The necrotic debris was excised using the 15 blade scalpel. The wound cavity was then palpated and the wound extended caudad about 4 more cm and also extended medially. The skin overlying this cavity was paper thin and did not appear viable. The skin overlying this section was excised using a 15 blade scalpel. No further tracking was identified. No further tissue or hematoma was identified. Hemostasis was then achieved with electrocautery. The wound was then packed with 1 in iodoform gauze. Fluff gauze and Kerlix wrap was applied. The patient was then awakened from anesthesia and transferred to recovery. Anesthesia: MAC and local (1% lidocaine with epinephrine) Surgeon: Horacio Gibson DO Estimated blood loss (mL): 10 Packing: Yes (1 in iodoform gauze) Complications: No immediate complications Condition: stable Disposition: floor Findings: This is a 59-year-old woman who presented with a chronic nonhealing wound on her left lower extremity. She has a history of being hit in the leg by her dog about 3 weeks ago and this has not healed since then. She has a chronic history of left lower extremity edema and has noticed some increasing swelling and redness in the region. She denies any fevers. She was found to have a 2 cm ulcer on her anterior medial left lower extremity. This appeared to be tracking inferiorly and further medially. There was some necrotic debris at the base of the ulcer as well. Decision was made to proceed with debridement of left lower extremity wound. The left lower extremity ulcer was sharply debrided using a 15 blade scalpel. Necrotic tissue along the base of the wound was excised completely until there was healthy bleeding tissue. The wound also appeared to track inferior and medially and the skin overlying this area was paper thin and tore with gentle manipulation. This overlying skin was excised to allow for the wound to be completely opened and cleaned up. The necrotic subcutaneous fat was excised as well, but the underlying fascia and muscle appeared healthy and viable. The wound measured approximately 5 cm x 6 cm.
--- NOTE | 2020-11-08 17:09 | SUR.PHASEI ---
Simple mask removed at 1707.
--- NOTE | 2020-11-08 17:55 | PC.NURSE ---
Pt returned from OR per bed. Report received from SUZANNE Sandoval.
[2020-11-08] MEDS: MONTELUKAST SODIUM 10 MG TABLET PO (20:40)
[2020-11-09] VITALS (12 sets, daily range): BP systolic 101–119; BP diastolic 43–66; PULSE 88–99; RESP 16–20; TEMP 35.9–36.6; O2SAT 92–100
[2020-11-09] MEDS: ALBUTEROL SULFATE NEB 2.5 MG/0.5 ML INH 5 MG INHALATION ×4 (02:30→19:36)
[2020-11-09] MEDS: IPRATROPIUM BR 0.02% INH SOLN 0.5 MG/2.5 ML VIAL INHALATION ×2 (02:30→07:35)
[2020-11-09] MEDS: HYDROcodone/acetaminophen (*CRX) 7.5-325 MG TABLET 1 TAB PO ×4 (04:10→20:05)
[2020-11-09] MEDS: ENOXAPARIN 40 MG/0.4 ML SYRINGE SUB-Q (08:15)
[2020-11-09] MEDS: POTASSIUM CHLORIDE 10 MEQ TABLET.ER PO (08:15)
[2020-11-09] MEDS: CYANOCOBALAMIN 1,000 MCG TABLET 1000 MCG PO (08:15)
[2020-11-09] MEDS: CLINDAMYCIN 900 MG/D5W 50 ML 900 MG/50 ML PIGGYBACK 50 MG IVPB (08:22)
--- NOTE | 2020-11-09 09:20 | WPDANESPN ---
Anes - Prog Note Post-Op Date/Time: 11/09/20 09:20 Cardiovascular status: normal Respiratory status: other (supplemental O2 per NC) Airway patency: baseline Mental status: baseline Post-Op hydration status: normal Vital Signs: Last Vital Signs Temp 36.6 C 11/09/20 04:31 Pulse 89 11/09/20 07:40 Resp 18 11/09/20 07:40 BP 119/46 L 11/09/20 08:04 Pulse Ox 95 11/09/20 07:40 Pain Score (VAS): 3 I/O: Intake & Output 11/08/20 11/09/20 11/09/20 23:59 07:59 15:59 Intake Total 670 800 50 Output Total 600 300 Balance 70 500 50 Laboratory Tests 11/08/20 05:47 11/08/20 05:47 Microbiology 11/07/20 12:45 Ankle Left Wound Culture - Preliminary 11/07/20 12:43 Blood Blood Culture - Preliminary 11/07/20 11:54 Blood Blood Culture - Preliminary Post-procedural complaints: none Patient Feedback: Patient satisfied with anesthetic care.
--- NOTE | 2020-11-09 10:32 | PM.PNGS ---
Progress Note: A&P Assessment and Plan (1) Venous stasis ulcer: Code(s): I83.009 - Varicose veins of unspecified lower extremity with ulcer of unspecified site; L97.909 - Non-pressure chronic ulcer of unspecified part of unspecified lower leg with unspecified severity Status: Acute Assessment and Plan: Left lower leg wound was evaluated with the wound care nurses today. The wound looks good. They do not feel she would be a candidate for a wound VAC. The concern is that the surrounding skin appears thin and fragile and likely would not tolerate the adhesive dressing. For now, we will continue with local wound care with silver gel and 1 iodoform gauze dressing changes daily. Depending on how this is healing over the next few weeks, she may be a candidate for a skin graft. We will plan to continue to follow this as an outpatient after discharge and decide on this as she progresses. (2) Cellulitis, leg: Code(s): L03.119 - Cellulitis of unspecified part of limb Status: Acute Assessment and Plan: Cellulitis improving. Continue IV abx per Hospitalist. Additional Plan Discussed the plan of care with Dr. Gibson. Subjective Subjective Date/Time Seen: 11/09/20 10:32 Post Op day: 1 (Sharp excisional debridement of left lower extremity ulcer) Patient reports: no new complaints, still having pain, tolerating a regular diet and afebrile Exam Const: General: comfortable; No acute distress Orientation/consciousness: patient oriented x3 Skin: Other: Open left lower leg wound looks good with healthy pink tissue and no areas of necrotic tissue or purulent drainage. Small area of undermining on medial aspect of the wound with the overlying skin appearing very thin with a dark discoloration. Extrem: Left lower extremity: edema Details: pitting and 2+ (improving) and lower leg Details: erythema (improving) Objective Data Vital Signs Vital Signs: Vital Signs - 24 hr 11/08/20 13:28 11/08/20 14:00 11/08/20 14:12 Temperature 98.8 F 96.8 F L Pulse Rate 92 106 H 98 Respiratory Rate 18 18 16 Blood Pressure 107/51 L 135/56 L Pulse Oximetry 100 99 11/08/20 16:37 11/08/20 16:50 11/08/20 17:05 Temperature 98.2 F Pulse Rate 106 H 98 97 Respiratory Rate 11 L 17 18 Blood Pressure 118/68 116/65 112/67 Pulse Oximetry 100 100 100 11/08/20 17:20 11/08/20 17:29 11/08/20 17:55 Temperature 96.0 F L Pulse Rate 99 98 93 Respiratory Rate 15 17 16 Blood Pressure 125/67 110/82 110/65 Pulse Oximetry 100 100 100 11/08/20 18:10 11/08/20 18:32 11/08/20 19:21 Temperature 98.1 F 96.3 F L 97.6 F Pulse Rate 97 97 100 Respiratory Rate 16 18 18 Blood Pressure 135/64 104/69 114/71 Pulse Oximetry 100 98 99 11/08/20 21:22 11/08/20 21:33 11/08/20 22:02 Temperature Pulse Rate 91 91 89 Respiratory Rate 18 18 Blood Pressure Pulse Oximetry 96 94 11/08/20 23:21 11/09/20 02:25 11/09/20 02:31 Temperature 97.2 F L Pulse Rate 104 H 92 92 Respiratory Rate 17 18 Blood Pressure 97/45 L Pulse Oximetry 99 92 11/09/20 02:38 11/09/20 04:31 11/09/20 07:40 Temperature 98 F Pulse Rate 91 99 89 Respiratory Rate 18 18 18 Blood Pressure 101/54 L Pulse Oximetry 98 95 11/09/20 08:04 Temperature Pulse Rate Respiratory Rate Blood Pressure 119/46 L Pulse Oximetry Intake/Output Intake/Output: Intake & Output 11/06/20 11/07/20 11/08/20 11/09/20 23:59 23:59 23:59 23:59 Intake Total 890 1720 1140 Output Total 400 1550 300 Balance 490 170 840 Meds/Results Medications: Active Medications Generic Name Dose Route Start Last Admin Trade Name Freq PRN Reason Stop Dose Admin Acetaminophen 650 mg 11/07/20 15:58 11/08/20 04:22 Acetaminophen 325 Mg Tablet PO 650 mg Q4H PRN Administration Mild Pain (1-3) or Fever Hydrocodone Bitart/Acetaminophen 1 tab 11/07/20 15:44 11/09/20 08:15 Hydrocodone/Acetaminophen (*Crx) 7.5-325 Mg Tablet PO 1 tab Q4H PRN
[2020-11-09] MEDS: MORPHINE SULFATE (*CRX) 2 MG/ML INJ IV PUSH (11:22)
--- NOTE | 2020-11-09 12:29 | PM.IMPN ---
Progress Note: A&P Assessment and Plan (1) Cellulitis, leg: Code(s): L03.119 - Cellulitis of unspecified part of limb Status: Acute Assessment and Plan: Patient presents with a small but very deep ulcer in the left lower extremity. No fevers. No elevated white count. Left lower extremity Doppler negative for DVT. CT scan showing deep skin ulceration with diffuse skin thickening and subcutaneous edema throughout the lower leg consistent with cellulitis. POD #1 from debridement. Cultures have been collected and are no growth. Continue Zosyn and vancomycin; also on clindamycin. Appreciate General surgery input. Continue dressing changes. Stop Clinda now. (2) Stage 4 very severe COPD by GOLD classification: Code(s): J44.9 - Chronic obstructive pulmonary disease, unspecified Status: Acute Assessment and Plan: Patient with severe COPD. No chest x-ray performed here. Patient remains on her 2 L chronically. Continue Albuterol nebulizer but change Atrovent back to Spiriva. (3) Chronic respiratory failure: Code(s): J96.10 - Chronic respiratory failure, unspecified whether with hypoxia or hypercapnia Status: Acute Assessment and Plan: Stable on 2 L O2 nasal cannula. Continue to monitor. (4) Lung malignancy: Code(s): C34.90 - Malignant neoplasm of unspecified part of unspecified bronchus or lung Status: Acute Assessment and Plan: Hx of non small cell lung cancer and left lower lobe treated with radiation treatment December 2016. Stable (5) Benign essential HTN: Code(s): I10 - Essential (primary) hypertension Status: Acute Assessment and Plan: Patient's blood pressure was reviewed on 11/09 Blood pressure low normal now. Will hold HCTZ and lisinopril today. (6) Obstructive sleep apnea: Code(s): G47.33 - Obstructive sleep apnea (adult) (pediatric) Status: Acute Assessment and Plan: Patient wear CPAP at night. Continue the same here. (7) DVT prophylaxis: Code(s): Z29.9 - Encounter for prophylactic measures, unspecified Status: Acute Assessment and Plan: Lovenox Subjective Date/time seen: 11/09/20 12:29 Interval history: 59yo female with COPD and chronic respiratory failure on 2L here for left calf infection. Patient feels better. Pain reasonable but did require narcotics for recent dressing change. Tolerating wearing her mask last night. She denies CP or SOB at rest. Has been up to the chair. Eating okay. Exam Narrative: Exam Narrative: AF 98.0 119/46 89 18 95% 2L Gen - NARD lying semi recumbent in bed Chest - CTA bilaterally, nml RR CV - RRR with distant S1/S2. Abd - Soft, obese, NT, +BS Ext - left lower extremity edema improved with wrinkling of skin Psych - nml mood and affect Skin - warm and dry. LLE dressing clean and dry Objective Data Vital Signs Vital Signs: Vital Signs - 24 hr 11/08/20 13:28 11/08/20 14:00 11/08/20 14:12 Temperature 98.8 F 96.8 F L Pulse Rate 92 106 H 98 Respiratory Rate 18 18 16 Blood Pressure 107/51 L 135/56 L Pulse Oximetry 100 99 11/08/20 16:37 11/08/20 16:50 11/08/20 17:05 Temperature 98.2 F Pulse Rate 106 H 98 97 Respiratory Rate 11 L 17 18 Blood Pressure 118/68 116/65 112/67 Pulse Oximetry 100 100 100 11/08/20 17:20 11/08/20 17:29 11/08/20 17:55 Temperature 96.0 F L Pulse Rate 99 98 93 Respiratory Rate 15 17 16 Blood Pressure 125/67 110/82 110/65 Pulse Oximetry 100 100 100 11/08/20 18:10 11/08/20 18:32 11/08/20 19:21 Temperature 98.1 F 96.3 F L 97.6 F Pulse Rate 97 97 100 Respiratory Rate 16 18 18 Blood Pressure 135/64 104/69 114/71 Pulse Oximetry 100 98 99 11/08/20 21:22 11/08/20 21:33 11/08/20 22:02 Temperature Pulse Rate 91 91 89 Respiratory Rate 18 18 Blood Pressure Pulse Oximetry 96 94 11/08/20 23:21 11/09/20 02:25 11/09/20 02:31 Temperature 97.2 F L P
[2020-11-09] MEDS: FUROSEMIDE 20 MG TABLET PO (16:34)
[2020-11-09] MEDS: MONTELUKAST SODIUM 10 MG TABLET PO (20:05)
[2020-11-09 22:52] LABS: Vancomycin Trough 20.8 ug/mL (10.0-20.0)
[2020-11-10] VITALS (10 sets, daily range): BP systolic 101–124; BP diastolic 47–57; PULSE 80–95; RESP 14–22; TEMP 35.9–36.3; O2SAT 97–100
[2020-11-10] MEDS: HYDROcodone/acetaminophen (*CRX) 7.5-325 MG TABLET 1 TAB PO ×5 (00:43→22:15)
[2020-11-10] MEDS: CALCIUM CARBONATE (TUMS) 500 MG (200 MG ELEMENTAL) PO ×2 (00:43→18:15)
[2020-11-10 05:51] LABS: Basophils Absolute Auto 0.1 K/mm3 (0.0-0.1); Basophils Percent Auto 0.6 % (0.2-1.2); Eosinophils Absolute Auto 0.2 K/mm3 (0-0.3); Eosinophils Percent Auto 2.1 % (0-4.4); Hemoglobin 10.1 g/dL (12.0-15.0); Immature Granulocyte Absolute 0.05 K/mm3 (0.00-0.031); Immature Granulocyte Percent A 0.6 % (0-0.5); Lymphocytes Absolute Auto 1.19 K/mm3 (0.9-3.2); Lymphocytes Percent Auto 13.7 % (18.3-44.2); Mean Corpuscular HGB Conc 31.6 g/dl (32-36); Mean Corpuscular Hemoglobin 28.8 pg (26-34); Mean Corpuscular Volume 91.2 fl (80-100); Mean Platelet Volume 9.1 fl (7.4-10.4); Monocytes Absolute Auto 0.7 K/mm3 (0.1-0.6); Neutrophils Absolute Auto 6.5 K/mm3 (1.3-6.7); Platelet Count Result 338 k/mm3 (150-375); Red Blood Count 3.51 M/mm3 (4.2-5.4); Red Cell Distribution Width 12.3 % (11.5-14.5); White Blood Count 8.7 K/mm3 (4.5-10.0)
[2020-11-10 06:15] LABS: Anion Gap 6 mmol/L (8-16); Blood Urea Nitrogen 16 mg/dL (7-17); CRP 4.5 mg/dL (<1.0); Calcium 8.3 mg/dL (8.4-10.2); Carbon Dioxide 32 mmol/L (22-30); Chloride 94 mmol/L (98-107); Estimated CRCL calculation 24 ml/min; Estimated Glomerular Filt Rate 16; Glucose 122 mg/dL (65-105); Potassium 3.1 mmol/L (3.4-5.0); Sodium 132 mmol/L (137-145)
[2020-11-10] MEDS: SODIUM CHLORIDE 0.9% IV 250 ML IV CONT (07:56)
[2020-11-10] MEDS: SILVERGEL (ELTA) 45 ML 1 APPLIC TOPICAL (07:59)
[2020-11-10] MEDS: ENOXAPARIN 40 MG/0.4 ML SYRINGE SUB-Q (07:59)
[2020-11-10] MEDS: CYANOCOBALAMIN 1,000 MCG TABLET 1000 MCG PO (07:59)
[2020-11-10] MEDS: SODIUM CHLORIDE 0.9% IV 1,000 ML 100 ML IV CONT ×2 (09:05→20:42)
[2020-11-10] MEDS: ALBUTEROL SULFATE NEB 2.5 MG/0.5 ML INH 5 MG INHALATION ×3 (09:18→20:44)
--- NOTE | 2020-11-10 11:43 | PM.PNGS ---
Progress Note: A&P Assessment and Plan (1) Venous stasis ulcer: Code(s): I83.009 - Varicose veins of unspecified lower extremity with ulcer of unspecified site; L97.909 - Non-pressure chronic ulcer of unspecified part of unspecified lower leg with unspecified severity Status: Acute Assessment and Plan: Left lower leg wound looks good today. Continue with daily dressing changes for local wound care. Patient believes her daughter could help her with dressing changes while at home, but she will also likely need home health to come by and help with wound care throughout the week. We will plan to follow-up with the patient in the wound clinic in 1-2 weeks as an outpatient after discharge. (2) Cellulitis, leg: Code(s): L03.119 - Cellulitis of unspecified part of limb Status: Acute Assessment and Plan: Cellulitis and swelling continues to improve. Continue abx per Hospitalist. (3) SEEMA (acute kidney injury): Code(s): N17.9 - Acute kidney failure, unspecified Status: Acute Additional Plan Discussed the plan of care with Dr. Gibson. Subjective Subjective Date/Time Seen: 11/10/20 11:43 Post Op day: 2 (Sharp excisional debridement of left lower extremity ulcer) Patient reports: no new complaints, pain is less, nausea and afebrile Interval history: Patient reports pain is less. Swelling is down in the left leg. Having some nausea and poor appetite. Review of Systems Genitourinary: Genitourinary: Reports urinary frequency Exam Const: General: alert; No acute distress Orientation/consciousness: patient oriented x3 Skin: Other: Open left lower leg wound with some formation of granulation tissue noted today. Small area of undermining on medial aspect of the wound with the overlying skin appearing very thin with a dark discoloration. Extrem: Left lower extremity: edema Details: pitting and 2+ (improving) and lower leg Details: erythema (improving) Psych: Insight: Good insight present (Psych) Judgement: Good judgement present (Psych) Objective Data Vital Signs Vital Signs: Vital Signs - 24 hr 11/09/20 13:33 11/09/20 14:08 11/09/20 19:50 Temperature 96.6 F L Pulse Rate 88 98 96 Respiratory Rate 18 16 20 Blood Pressure 113/66 Pulse Oximetry 100 99 11/09/20 19:58 11/09/20 20:00 11/09/20 20:49 Temperature 96.8 F L Pulse Rate 91 92 Respiratory Rate 20 18 Blood Pressure 115/43 L Pulse Oximetry 100 100 11/10/20 01:33 11/10/20 04:42 11/10/20 09:18 Temperature 97.0 F L Pulse Rate 95 85 85 Respiratory Rate 18 20 Blood Pressure 124/47 L Pulse Oximetry 97 99 98 11/10/20 09:35 Temperature Pulse Rate 84 Respiratory Rate 20 Blood Pressure Pulse Oximetry Intake/Output Intake/Output: Intake & Output 11/07/20 11/08/20 11/09/20 11/10/20 23:59 23:59 23:59 23:59 Intake Total 890 1720 2510 1150 Output Total 400 1550 400 315 Balance 889 836 9015 835 Meds/Results Medications: Active Medications Generic Name Dose Route Start Last Admin Trade Name Freq PRN Reason Stop Dose Admin Acetaminophen 650 mg 11/07/20 15:58 11/08/20 04:22 Acetaminophen 325 Mg Tablet PO 650 mg Q4H PRN Administration Mild Pain (1-3) or Fever Hydrocodone Bitart/Acetaminophen 1 tab 11/07/20 15:44 11/10/20 04:52 Hydrocodone/Acetaminophen (*Crx) 7.5-325 Mg Tablet PO 1 tab Q4H PRN Administration pain 4-6 Albuterol 1 puff 11/07/20 15:44 Albuterol Sulfate (*Sp) Aerosol 1 Puff INHALATION Q4H PRN shortness of breath or wheezing Albuterol 5 mg 11/09/20 14:00 11/10/20 09:18 Albuterol Sulfate Neb 2.5 Mg/0.5 Ml Inh INHALATION 5 mg [id number] CHILANGO Administration Calcium Carbonate 200 mg 11/10/20 00:28 11/10/20 00:43 Calcium Carbonate (Tums) 500 Mg (200 Mg Elemental) PO 200 mg Q6H PRN Administration Indigestion Cyanocobalamin 1,000 mcg 11/08/20 09:00 11/10/20 07:59 Cyanocobalamin 1,000 Mcg Tablet PO
[2020-11-10 13:18] LABS: Potassium 3.3 mmol/L (3.4-5.0)
[2020-11-10 13:27] LABS: Anion Gap 6 mmol/L (8-16); Blood Urea Nitrogen 18 mg/dL (7-17); Calcium 8.1 mg/dL (8.4-10.2); Carbon Dioxide 32 mmol/L (22-30); Chloride 93 mmol/L (98-107); Estimated CRCL calculation 21 ml/min; Estimated Glomerular Filt Rate 13; Glucose 117 mg/dL (65-105); Sodium 131 mmol/L (137-145)
--- NOTE | 2020-11-10 18:59 | PM.IMPN ---
Progress Note: A&P Assessment and Plan (1) SEEMA (acute kidney injury): Code(s): N17.9 - Acute kidney failure, unspecified Status: Acute Assessment and Plan: Cr normal on 11/08 at 0.9. She was continued on her lisinopril and HCTZ but this was last given on 11/08 (held 11/09 due to soft BP). Cr not checked yesterday but climbed to 3.0 today. Started on Vanco and Zosyn which can cause SEEMA. Consider also dehydration from her nausea. CT scan was done without contrast. No eosinophilia to suggest AIN but consider since on a PCN. Bladder scan this morning revealed 150mL. Possibly multifactorial. Fluid bolus ordered and NS started. Repeat Cr 3.5 now. Continue IV fluids. Check urine studies. Nephrology consult if Cr does not improve. UOP 650mL today. (2) Cellulitis, leg: Code(s): L03.119 - Cellulitis of unspecified part of limb Status: Acute Assessment and Plan: Patient presents with a small but very deep ulcer in the left lower extremity. No fevers. No elevated white count. Left lower extremity Doppler negative for DVT. CT scan showing deep skin ulceration with diffuse skin thickening and subcutaneous edema throughout the lower leg consistent with cellulitis. POD #2 from debridement. Wound cultures negative. BCx NGTD. Started on Zosyn, vancomycin and clindamycin. Abx adjusted given the renal failure. Appreciate General surgery input. Continue dressing changes. (3) Stage 4 very severe COPD by GOLD classification: Code(s): J44.9 - Chronic obstructive pulmonary disease, unspecified Status: Acute Assessment and Plan: Patient with severe COPD. No chest x-ray performed here but lungs remain clear. Patient remains on her 2 L chronically. Continue Albuterol nebulizer and Spiriva. (4) Chronic respiratory failure: Code(s): J96.10 - Chronic respiratory failure, unspecified whether with hypoxia or hypercapnia Status: Acute Assessment and Plan: Stable on 2 L O2 nasal cannula. Continue to monitor. (5) Lung malignancy: Code(s): C34.90 - Malignant neoplasm of unspecified part of unspecified bronchus or lung Status: Acute Assessment and Plan: Hx of non small cell lung cancer and left lower lobe treated with radiation treatment December 2016. Stable (6) Benign essential HTN: Code(s): I10 - Essential (primary) hypertension Status: Acute Assessment and Plan: Patient's blood pressure was reviewed on 11/10 Blood pressure low normal. HCTZ and lisinopril stopped. (7) Obstructive sleep apnea: Code(s): G47.33 - Obstructive sleep apnea (adult) (pediatric) Status: Acute Assessment and Plan: Patient mostly compliant with NIV at night. Continue the same. (8) DVT prophylaxis: Code(s): Z29.9 - Encounter for prophylactic measures, unspecified Status: Acute Assessment and Plan: Lovenox Subjective Date/time seen: 11/10/20 18:59 Interval history: 59yo female with COPD and chronic respiratory failure on 2L here for left calf infection. Patietn feels 'lousy' today. Having nausea and dry heaves. Not eating much at all. Noted decreases UOP yesterday and worse today. Has been up to the commode and to the chair. She has little leg pain. Exam Narrative: Exam Narrative: AF 97.4 80 14 100% 2L Gen - NARD lying semi recumbent in bed Chest - CTA bilaterally, nml RR CV - RRR with distant S1/S2 Abd - Soft, obese, NT, +BS Ext - left lower extremity edema improving Psych - appropriate mood; appears uncomfortable Skin - warm and dry. LLE dressing clean and dry Objective Data Vital Signs Vital Signs: Vital Signs - 24 hr 11/09/20 19:50 11/09/20 19:58 11/09/20 20:00 Temperature Pulse Rate 96 91 Respiratory Rate 20 20 Blood Pressure Pulse Oximetry 99 100 11/09/20 20:49 11/10/20 01:33 11/10/20 04:42 Temperature 96.8 F L 97.0 F L Pulse Rate
[2020-11-10 19:45] LABS: Anion Gap 5 mmol/L (8-16); Blood Urea Nitrogen 19 mg/dL (7-17); Calcium 8.1 mg/dL (8.4-10.2); Carbon Dioxide 32 mmol/L (22-30); Chloride 93 mmol/L (98-107); Estimated CRCL calculation 19 ml/min; Estimated Glomerular Filt Rate 12; Glucose 111 mg/dL (65-105); Potassium 3.6 mmol/L (3.4-5.0); Sodium 130 mmol/L (137-145)
[2020-11-10] MEDS: MONTELUKAST SODIUM 10 MG TABLET PO (20:42)
[2020-11-10 21:48] LABS: Add Urine Microscopic? YES; Appearance Urine Cloudy (Clear); Bilirubin Urine Negative (Negative); Blood Urine 1+ (Negative); Color Urine Yellow (Yellow); Glucose Urine UA Negative (Negative); Ketones Urine Negative (Negative); Leukocyte Esterase Ur Negative LEU/UL (Negative); Nitrate Urine Negative (Negative); Protein Urine 1+ mg/dL (Negative); RBC Urine 0-2 /hpf (0-2); Specific Grav Ur 1.005 (1.001-1.035); Squamous Epithelial Cell Urine Many /hpf (Few); Urobilinogen Urine Negative mg/dL (<2.0); WBC Urine 0-3 /hpf
[2020-11-10 22:06] LABS: Creatinine Urine 49.8 mg/dL; Sodium Urine Random 13 meq/L
[2020-11-10 22:26] LABS: Eosinophil Urine None Seen % (None Seen)
[2020-11-10] MEDS: WATER FOR IRRIGATION, STERILE 1,000 ML BOTTLE 1000 ML (23:17)
[2020-11-11] VITALS (10 sets, daily range): BP systolic 119–128; BP diastolic 47–53; PULSE 75–103; RESP 18–20; TEMP 35.9–36.4; O2SAT 97–100
[2020-11-11] MEDS: CALCIUM CARBONATE (TUMS) 500 MG (200 MG ELEMENTAL) PO ×2 (01:21→20:40)
[2020-11-11] MEDS: HYDROcodone/acetaminophen (*CRX) 7.5-325 MG TABLET 1 TAB PO ×3 (02:55→20:39)
[2020-11-11 05:52] LABS: Basophils Absolute Auto 0.1 K/mm3 (0.0-0.1); Basophils Percent Auto 0.7 % (0.2-1.2); Eosinophils Absolute Auto 0.2 K/mm3 (0-0.3); Eosinophils Percent Auto 1.6 % (0-4.4); Hematocrit 29.5 % (37.0-47.0); Hemoglobin 9.9 g/dL (12.0-15.0); Immature Granulocyte Absolute 0.05 K/mm3 (0.00-0.031); Immature Granulocyte Percent A 0.5 % (0-0.5); Lymphocytes Absolute Auto 1.03 K/mm3 (0.9-3.2); Lymphocytes Percent Auto 11.2 % (18.3-44.2); Mean Corpuscular HGB Conc 33.6 g/dl (32-36); Mean Corpuscular Hemoglobin 29.3 pg (26-34); Mean Corpuscular Volume 87.3 fl (80-100); Monocytes Absolute Auto 0.6 K/mm3 (0.1-0.6); Monocytes Percent Auto 6.9 % (2.6-8.5); Neutrophils Absolute Auto 7.3 K/mm3 (1.3-6.7); Neutrophils Percent Auto 79.1 % (45.5-73.1); Platelet Count Result 346 k/mm3 (150-375); Red Blood Count 3.38 M/mm3 (4.2-5.4); Red Cell Distribution Width 11.9 % (11.5-14.5); White Blood Count 9.2 K/mm3 (4.5-10.0)
[2020-11-11 06:05] LABS: Potassium 3.6 mmol/L (3.4-5.0)
[2020-11-11 06:11] LABS: Complement C3 124 mg/dL (88-165)
[2020-11-11 06:19] LABS: Albumin Level 3.3 g/dL (3.5-5.1); Anion Gap 6 mmol/L (8-16); Blood Urea Nitrogen 21 mg/dL (7-17); CRP 4.8 mg/dL (<1.0); Calcium 8.2 mg/dL (8.4-10.2); Carbon Dioxide 29 mmol/L (22-30); Chloride 94 mmol/L (98-107); Estimated CRCL calculation 16 ml/min; Estimated Glomerular Filt Rate 10; Glucose 101 mg/dL (65-105); Phosphorus 5.6 mg/dL (2.5-4.5); Sodium 129 mmol/L (137-145)
[2020-11-11] MEDS: ALBUTEROL SULFATE NEB 2.5 MG/0.5 ML INH 5 MG INHALATION ×2 (07:42→14:05)
[2020-11-11] MEDS: SODIUM CHLORIDE 0.9% IV 1,000 ML 100 ML IV CONT ×2 (08:11→18:22)
[2020-11-11] MEDS: ENOXAPARIN 30 MG/0.3 ML SYRINGE SUB-Q (08:12)
[2020-11-11] MEDS: CYANOCOBALAMIN 1,000 MCG TABLET 1000 MCG PO (08:12)
[2020-11-11] MEDS: SILVERGEL (ELTA) 45 ML 1 APPLIC TOPICAL (08:12)
--- NOTE | 2020-11-11 12:05 | PM.CNNEP ---
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 - infection (leg cellulitis) - antibiotics (drugs themselves versus possible acute interstitial nephritis) urine electrolytes suggest pre-renal azotemia urine eosinophils pending follow-up on renal ultrasound serologies ordered already agree with IVFs for now follow repeat labs and UOP (2) Left leg cellulitis: Code(s): L03.116 - Cellulitis of left lower limb Status: Acute Assessment and Plan: on antibiotics cultures noted s/p debridement by Surgery on 11/08/20 local wound care pain control (3) COPD (chronic obstructive pulmonary disease): Code(s): J44.9 - Chronic obstructive pulmonary disease, unspecified Status: Chronic Assessment and Plan: appears relatively stable continue supplemental oxygen and inhalers (4) Benign essential HTN: Code(s): I10 - Essential (primary) hypertension Status: Acute Assessment and Plan: appears to be doing better BP medications on hold follow trend of hemodynamics Long and extensive discussion (> 20 minutes) with patient and daughter at bedside regarding her acute kidney injury as well as the possible causes/etiology and the plan of care as outlined with hope of resolution with ongoing conservative therapy. Will continue to follow. History of Present Illness Reason for Consult Consult date: 11/11/20 Reason for consult: acute renal failure Chief Complaint Chief complaint: cellulitis, venous stasis ulcer LLE History of Present Illness Narrative: The patient is a 59-year-old female with a past medical history as outlined below who presented [facility] with complaints of a wound to her left leg. She apparently reports that she has chronic left lower extremity edema for the past 2 years without a clear etiology. Approximately 2 weeks ago, her dog apparently ran into her left leg and she developed a large blood blister. The area where this blood blister was localized became larger and then started spontaneously draining. Her primary care physician apparently center to the wound Care Center for dressing changes and further optimization of this wound. She had been taking oral clindamycin for this wound on the assumption that infection was playing a role. However, in spite of wound care and antibiotic therapy, the wound continued to drain and resulted in increased swelling in her left lower extremity. She denies any chills, nausea, or vomiting but reports mild subjective fevers. On her last visit with the wound care clinic, they were concerned by the increased swelling in association with erythema around the wound and hence sent the patient to the the ER for further evaluation. Workup and evaluation emergency room demonstrated patient be slightly hypotensive and tachycardic which improved with IV fluid resuscitation and in no acute distress. Routine blood tests demonstrated normal white blood cell count, mild anemia, and otherwise normal electrolytes as well as relatively stable renal function. Exam was significant for a 2x2 cm skin ulcer to LLE with some tunneling associated with diffuse erythema and induration of left lower leg to mid calf. given these findings, appropriate cultures were obtained, she was started on broad-spectrum IV antibiotic therapy, and subsequent admitted the hospital for further evaluation. Since her admission, she has been seen by General surgery and was taken to the OR for debridement of the left lower extremity ulcer. She tolerated the procedure reasonably well
[2020-11-11] MEDS: ONDANSETRON INJ 4 MG/2 ML VIAL IV PUSH (13:31)
--- NOTE | 2020-11-11 15:28 | PM.IMPN ---
Progress Note: A&P Assessment and Plan (1) SEEMA (acute kidney injury): Code(s): N17.9 - Acute kidney failure, unspecified Status: Acute Assessment and Plan: Cr normal on 11/08 at 0.9. She was continued on her lisinopril and HCTZ but this was last given on 11/08 (held 11/09 due to soft BP then stopped). Cr climbed to 3.0 yesterday. Started on Vanco and Zosyn which can cause SEEMA. Consider also dehydration from her nausea and poor oral intake. CT scan was done without contrast. No eosinophilia to suggest AIN but consider since on a PCN. Bladder scan revealed 150mL. Fluid bolus ordered and NS started. Urine studies pointing toward pre-renal. Renal US normal. UOP improved but repeat Cr 4.5 now. Continue IV fluids. Nephrology consulted and discussed. UOP 665mL yesterday and already 750mL recorded for today. Check obstructive series given the nausea. (2) Cellulitis, leg: Code(s): L03.119 - Cellulitis of unspecified part of limb Status: Acute Assessment and Plan: Patient presents with a small but very deep ulcer in the left lower extremity. No fevers. No elevated white count. Left lower extremity Doppler negative for DVT. CT scan showing deep skin ulceration with diffuse skin thickening and subcutaneous edema throughout the lower leg consistent with cellulitis. POD #3 from debridement. Wound cultures negative. BCx NGTD. Started on Zosyn, vancomycin and clindamycin. Abx adjusted given the renal failure. Appreciate General surgery input. Continue dressing changes. (3) Stage 4 very severe COPD by GOLD classification: Code(s): J44.9 - Chronic obstructive pulmonary disease, unspecified Status: Acute Assessment and Plan: Patient with severe COPD. Lungs remain clear without wheezing. Patient remains on her 2 L chronically. Continue Spiriva. Change Albuterol to prn (4) Chronic respiratory failure: Code(s): J96.10 - Chronic respiratory failure, unspecified whether with hypoxia or hypercapnia Status: Acute Assessment and Plan: Stable on 2 L O2 nasal cannula. Continue to monitor. (5) Lung malignancy: Code(s): C34.90 - Malignant neoplasm of unspecified part of unspecified bronchus or lung Status: Acute Assessment and Plan: Hx of non small cell lung cancer and left lower lobe treated with radiation treatment December 2016. Stable (6) Benign essential HTN: Code(s): I10 - Essential (primary) hypertension Status: Acute Assessment and Plan: Patient's blood pressure was reviewed on 11/11 Blood pressure stable off her home meds. Continue to hold HCTZ and lisinopril. (7) Obstructive sleep apnea: Code(s): G47.33 - Obstructive sleep apnea (adult) (pediatric) Status: Acute Assessment and Plan: Patient mostly compliant with NIV at night. Continue the same. (8) DVT prophylaxis: Code(s): Z29.9 - Encounter for prophylactic measures, unspecified Status: Acute Assessment and Plan: Lovenox Subjective Date/time seen: 11/11/20 15:28 Interval history: 59yo female with COPD and chronic respiratory failure on 2L here for left calf infection. Patient was up walking to the bathroom and to the chair earlier today. She developed dry heaves but currently feels better she states. Slept well last night. She is having diarrhea but no melena or hematochezia. No abdominal pain. No headache. Not eating much. Denies leg pain or back pain. Urine output is better. Exam Narrative: Exam Narrative: AF 97.3 119/53 92 20 97% 2L Gen - NARD lying semi recumbent in bed Chest - CTA bilaterally, nml RR CV - RRR with S1/S2 Abd - Soft, obese, NT, +BS Back -no CVA tenderness Ext - left lower extremity edema improving Psych -mood is improved. Skin - warm and dry. LLE dressing clean and dry Objective Data Vital Signs Vital Signs: Vital Signs - 24 hr 11/10/20 16:30 11/10
[2020-11-11] MEDS: MONTELUKAST SODIUM 10 MG TABLET PO (20:39)
[2020-11-12] MEDS: HYDROcodone/acetaminophen (*CRX) 7.5-325 MG TABLET 1 TAB PO ×4 (01:55→20:31)
[2020-11-12] MEDS: SODIUM CHLORIDE 0.9% IV 1,000 ML 100 ML IV CONT ×2 (05:51→16:49)
[2020-11-12 06:06] VITALS: BP 100/48; PULSE 87; RESP 18; TEMP 36.2; O2SAT 100
[2020-11-12 06:08] LABS: Basophils Absolute Auto 0.1 K/mm3 (0.0-0.1); Basophils Percent Auto 0.7 % (0.2-1.2); Eosinophils Absolute Auto 0.2 K/mm3 (0-0.3); Eosinophils Percent Auto 2.3 % (0-4.4); Hematocrit 28.6 % (37.0-47.0); Hemoglobin 9.4 g/dL (12.0-15.0); Immature Granulocyte Absolute 0.04 K/mm3 (0.00-0.031); Immature Granulocyte Percent A 0.5 % (0-0.5); Lymphocytes Absolute Auto 1.07 K/mm3 (0.9-3.2); Lymphocytes Percent Auto 12.9 % (18.3-44.2); Mean Corpuscular HGB Conc 32.9 g/dl (32-36); Mean Corpuscular Volume 88.3 fl (80-100); Mean Platelet Volume 8.8 fl (7.4-10.4); Monocytes Absolute Auto 0.7 K/mm3 (0.1-0.6); Monocytes Percent Auto 8.1 % (2.6-8.5); Neutrophils Absolute Auto 6.2 K/mm3 (1.3-6.7); Neutrophils Percent Auto 75.5 % (45.5-73.1); Platelet Count Result 321 k/mm3 (150-375); Red Blood Count 3.24 M/mm3 (4.2-5.4); Red Cell Distribution Width 11.9 % (11.5-14.5); White Blood Count 8.3 K/mm3 (4.5-10.0)
[2020-11-12 06:22] LABS: Anion Gap 6 mmol/L (8-16); Blood Urea Nitrogen 26 mg/dL (7-17); Calcium 7.7 mg/dL (8.4-10.2); Carbon Dioxide 26 mmol/L (22-30); Chloride 100 mmol/L (98-107); Estimated CRCL calculation 13 ml/min; Estimated Glomerular Filt Rate 8; Glucose 99 mg/dL (65-105); Lipase 27 U/L (23-300); Phosphorus 6.1 mg/dL (2.5-4.5); Potassium 3.8 mmol/L (3.4-5.0); Sodium 132 mmol/L (137-145)
[2020-11-12] MEDS: SILVERGEL (ELTA) 45 ML 1 APPLIC TOPICAL (08:51)
[2020-11-12] MEDS: ENOXAPARIN 30 MG/0.3 ML SYRINGE SUB-Q (08:52)
[2020-11-12] MEDS: CYANOCOBALAMIN 1,000 MCG TABLET 1000 MCG PO (08:52)
[2020-11-12 09:12] VITALS: O2SAT 98
--- NOTE | 2020-11-12 10:52 | P.PNNP_ITS ---
Progress Note: A&P Assessment and Plan (1) SEEMA (acute kidney injury): Code(s): N17.9 - Acute kidney failure, unspecified Status: Acute Assessment and Plan: * suspect multifactorial: - prerenal factors from nausea/vomiting and poor oral intake -- urine electrolytes demonstrate prerenal azotemia - concurrent use of CHRISSY-I and diuretics along with NSAID use INKER - relative hypotension - infection (leg cellulitis) - antibiotics (drugs themselves versus possible acute interstitial nephritis) -- however, no peripheral eosinophilia and urine eosinophils negative * renal ultrasound without obstruction * serologies ordered already * agree with IVFs as tolerated - continue attempts to optimize hemodynamics as tolerated * creatinine still rising -- but urine output is improving and no critical elect rolytes noted * follow repeat labs and UOP (2) Left leg cellulitis: Code(s): L03.116 - Cellulitis of left lower limb Status: Acute Assessment and Plan: * on antibiotics * cultures noted * s/p debridement by Surgery on 11/08/20 * local wound care * pain control (3) COPD (chronic obstructive pulmonary disease): Code(s): J44.9 - Chronic obstructive pulmonary disease, unspecified Status: Chronic Assessment and Plan: * appears relatively stable * continue supplemental oxygen and inhalers (4) Benign essential HTN: Code(s): I10 - Essential (primary) hypertension Status: Acute Assessment and Plan: * appears to be doing better * BP medications on hold * follow trend of hemodynamics Will continue to follow. Subjective Date/time seen: 11/12/20 10:52 Still with some nausea but better today in comparison to yesterday; urine output increasing; appetite is improving to some degree as well; no acute distress noted. Exam Narrative: Exam Narrative: General: WD/WN female in NAD Heart: normal S1 and S2; no rub Lungs: clear to auscultation Abdomen: soft, nontender, nondistended, positive bowel sounds Extremities: no cyanosis or clubbing; no edema Skin: left LE edema/dressing noted Objective Data Vital Signs Vital Signs: Vital Signs Temp Pulse Resp BP Pulse Ox 11/12/20 09:12 98 11/12/20 06:06 36.2 C L 87 18 100/48 L 100 11/11/20 21:43 36.4 C L 103 H 18 123/51 L 98 11/11/20 20:45 18 98 11/11/20 14:15 92 20 11/11/20 14:05 90 20 11/11/20 13:59 36.3 C L 93 18 119/53 L 97 Intake/Output Intake/Output: Intake & Output 11/09/20 11/10/20 11/11/20 11/12/20 23:59 23:59 23:59 23:59 Intake Total 2510 2610 2900 1400 Output Total 956 088 6469 350 Balance 2110 1845 1650 1050 Meds/Results Medications: Active Medications Generic Name Dose Route Start Last Admin Trade Name Freq PRN Reason Stop Dose Admin Acetaminophen 650 mg 11/07/20 15:58 11/08/20 04:22 Acetaminophen 325 Mg Tablet PO 650 mg Q4H PRN Administration Mild Pain (1-3) or Fever Hydrocodone Bitart/Acetaminophen 1 tab 11/07/20 15:44 11/12/20 08:50 Hydrocodone/Acetaminophen (*Crx) 7.5-325 Mg Tablet PO 1 tab Q4H PRN Adm
--- NOTE | 2020-11-12 10:52 | PM.PNNEP ---
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 - infection (leg cellulitis) - antibiotics (drugs themselves versus possible acute interstitial nephritis) -- however, no peripheral eosinophilia and urine eosinophils negative renal ultrasound without obstruction serologies ordered already agree with IVFs as tolerated - continue attempts to optimize hemodynamics as tolerated creatinine still rising -- but urine output is improving and no critical electrolytes noted follow repeat labs and UOP (2) Left leg cellulitis: Code(s): L03.116 - Cellulitis of left lower limb Status: Acute Assessment and Plan: on antibiotics cultures noted s/p debridement by Surgery on 11/08/20 local wound care pain control (3) COPD (chronic obstructive pulmonary disease): Code(s): J44.9 - Chronic obstructive pulmonary disease, unspecified Status: Chronic Assessment and Plan: appears relatively stable continue supplemental oxygen and inhalers (4) Benign essential HTN: Code(s): I10 - Essential (primary) hypertension Status: Acute Assessment and Plan: appears to be doing better BP medications on hold follow trend of hemodynamics Will continue to follow. Subjective Date/time seen: 11/12/20 10:52 Still with some nausea but better today in comparison to yesterday; urine output increasing; appetite is improving to some degree as well; no acute distress noted. Exam Narrative: Exam Narrative: General: WD/WN female in NAD Heart: normal S1 and S2; no rub Lungs: clear to auscultation Abdomen: soft, nontender, nondistended, positive bowel sounds Extremities: no cyanosis or clubbing; no edema Skin: left LE edema/dressing noted Objective Data Vital Signs Vital Signs: Vital Signs Temp Pulse Resp BP Pulse Ox 11/12/20 09:12 98 11/12/20 06:06 36.2 C L 87 18 100/48 L 100 11/11/20 21:43 36.4 C L 103 H 18 123/51 L 98 11/11/20 20:45 18 98 11/11/20 14:15 92 20 11/11/20 14:05 90 20 11/11/20 13:59 36.3 C L 93 18 119/53 L 97 Intake/Output Intake/Output: Intake & Output 11/09/20 11/10/20 11/11/20 11/12/20 23:59 23:59 23:59 23:59 Intake Total 2510 2610 2900 1400 Output Total 544 327 5382 350 Balance 2110 1845 1650 1050 Meds/Results Medications: Active Medications Generic Name Dose Route Start Last Admin Trade Name Freq PRN Reason Stop Dose Admin Acetaminophen 650 mg 11/07/20 15:58 11/08/20 04:22 Acetaminophen 325 Mg Tablet PO 650 mg Q4H PRN Administration Mild Pain (1-3) or Fever Hydrocodone Bitart/Acetaminophen 1 tab 11/07/20 15:44 11/12/20 08:50 Hydrocodone/Acetaminophen (*Crx) 7.5-325 Mg Tablet PO 1 tab Q4H PRN Administration pain 4-6 Albuterol 1 puff 11/07/20 15:44 Albuterol Sulfate (*Sp) Aerosol 1 Puff INHALATION Q4H PRN shortness of breath or wheezing Albuterol 5 mg 11/11/20 15:40 Albuterol Sulfate Neb 2.5 Mg/0.5 Ml Inh INHALATION Q6HRT PRN Shortness Of Breath Or Wheezing Calcium Carbonate 200 mg 11/10/20 00:28 11/11/20 20:40 Calcium Carbonate (Tums) 500 Mg (200 Mg Elemental) PO 200 mg Q6H PRN Administration Indigestion Cyanocobalamin 1,000 mcg 11/08/20 09:00 11/12/20 08:52 Cyanocobalamin 1,000 Mcg Tablet PO 1,000 mcg DAILY CHILANGO Administration Cyclobenzaprine HCl 10 mg 11/07/20 15:44 Cyclobenzaprine Hcl 10 Mg Tablet PO TID PRN muscle spasm
[2020-11-12 14:00] VITALS: BP 109/49; PULSE 94; RESP 12; TEMP 35.7; O2SAT 100
[2020-11-12] MEDS: CALCIUM CARBONATE (TUMS) 500 MG (200 MG ELEMENTAL) PO ×2 (14:45→20:31)
--- NOTE | 2020-11-12 15:13 | PM.IMPN ---
Progress Note: A&P Assessment and Plan (1) SEEMA (acute kidney injury): Code(s): N17.9 - Acute kidney failure, unspecified Status: Acute Assessment and Plan: Cr normal on 11/08 at 0.9. Started on Vanco and Zosyn. She was continued on her lisinopril and HCTZ but this was last given on 11/08 (held 11/09 due to soft BP then stopped). Cr climbed to 3.0 on 11/10. Vanco and Zosyn can cause SEEMA. Consider also dehydration from her nausea and poor oral intake. No contrast exposure. No eosinophilia to suggest AIN but consider since on a PCN. Bladder scan revealed 150mL. Fluid bolus ordered and NS started. Urine studies pointing toward pre-renal. Renal US normal. UOP improved but repeat Cr 5.6 now. Continue IV fluids. Nephrology following. No significnat electrolyte abnormalities. Continue to monitor. (2) Cellulitis, leg: Code(s): L03.119 - Cellulitis of unspecified part of limb Status: Acute Assessment and Plan: Patient presents with a small but very deep ulcer in the left lower extremity. No fevers. No elevated white count. Left lower extremity Doppler negative for DVT. CT scan showing deep skin ulceration with diffuse skin thickening and subcutaneous edema throughout the lower leg consistent with cellulitis. POD #4 from debridement. Wound cultures negative. BCx NGTD. Started on Zosyn, vancomycin and clindamycin. Abx adjusted given the renal failure; will hold Zosyn for now given the rising Cr values. Appreciate General surgery input. Continue dressing changes. (3) Stage 4 very severe COPD by GOLD classification: Code(s): J44.9 - Chronic obstructive pulmonary disease, unspecified Status: Acute Assessment and Plan: Patient with severe COPD. Lungs remain clear without wheezing. Patient remains on her 2 L chronically. Continue Spiriva. Continue Albuterol prn (4) Chronic respiratory failure: Code(s): J96.10 - Chronic respiratory failure, unspecified whether with hypoxia or hypercapnia Status: Acute Assessment and Plan: Stable on 2 L O2 nasal cannula. Continue to monitor. (5) Lung malignancy: Code(s): C34.90 - Malignant neoplasm of unspecified part of unspecified bronchus or lung Status: Acute Assessment and Plan: Hx of non small cell lung cancer left lower lobe treated with radiation treatment December 2016. Stable (6) Benign essential HTN: Code(s): I10 - Essential (primary) hypertension Status: Acute Assessment and Plan: Patient's blood pressure was reviewed on 11/12 Blood pressure stable off her home meds. Continue to hold HCTZ and lisinopril. (7) Obstructive sleep apnea: Code(s): G47.33 - Obstructive sleep apnea (adult) (pediatric) Status: Acute Assessment and Plan: Patient mostly compliant with NIV at night. Continue the same. (8) DVT prophylaxis: Code(s): Z29.9 - Encounter for prophylactic measures, unspecified Status: Acute Assessment and Plan: Lovenox Subjective Date/time seen: 11/12/20 15:13 Interval history: 59yo female with COPD and chronic respiratory failure on 2L here for left calf infection. Nausea is still present but less often. ABle to eat a bit more now. Walking in the room. Out of bed to the chair. UOP slowly improving. Exam Narrative: Exam Narrative: AF 96.2 109/49 94 12 100% 2L Gen - NARD lying semi recumbent in bed Chest - clear but distant BS bilaterally, nml RR CV - RRR with S1/S2 Abd - Soft, obese, NT, +BS Ext - left lower extremity edema improving Psych -mood is improved. Skin - warm and dry. LLE dressing clean and dry; wound partially noted with good granulation tissue and area of necrosis. Objective Data Vital Signs Vital Signs: Vital Signs - 24 hr 11/11/20 20:45 11/11/20 21:43 11/12/20 06:06 Temperature 97.5 F L 97.2 F L Pulse Rate 103 H 87 Respiratory Rate 18 18 18 Blood Pressure
[2020-11-12] MEDS: ONDANSETRON INJ 4 MG/2 ML VIAL IV PUSH (17:13)
[2020-11-12 20:20] VITALS: BP 138/77; PULSE 103; RESP 16; TEMP 36.4; O2SAT 100
[2020-11-12 20:30] VITALS: O2SAT 100
[2020-11-12] MEDS: MONTELUKAST SODIUM 10 MG TABLET PO (20:31)
[2020-11-12 22:33] VITALS: PULSE 101; O2SAT 98; O2SAT 99
[2020-11-13] VITALS (7 sets, daily range): BP systolic 124–136; BP diastolic 49–69; PULSE 56–96; RESP 14–20; TEMP 36–37.2; O2SAT 96–100
[2020-11-13] MEDS: SODIUM CHLORIDE 0.9% IV 1,000 ML 100 ML IV CONT ×3 (02:49→23:02)
[2020-11-13] MEDS: HYDROcodone/acetaminophen (*CRX) 7.5-325 MG TABLET 1 TAB PO ×4 (02:58→20:45)
[2020-11-13 05:46] LABS: Hematocrit 28.3 % (37.0-47.0); Hemoglobin 9.1 g/dL (12.0-15.0); Mean Corpuscular HGB Conc 32.2 g/dl (32-36); Mean Corpuscular Hemoglobin 28.8 pg (26-34); Mean Corpuscular Volume 89.6 fl (80-100); Mean Platelet Volume 9.1 fl (7.4-10.4); Platelet Count Result 342 k/mm3 (150-375); Red Blood Count 3.16 M/mm3 (4.2-5.4); White Blood Count 8.9 K/mm3 (4.5-10.0)
[2020-11-13 06:00] LABS: Anion Gap 3 mmol/L (8-16); Blood Urea Nitrogen 26 mg/dL (7-17); Calcium 8.1 mg/dL (8.4-10.2); Carbon Dioxide 27 mmol/L (22-30); Chloride 105 mmol/L (98-107); Estimated CRCL calculation 12 ml/min; Estimated Glomerular Filt Rate 7; Glucose 94 mg/dL (65-105); Phosphorus 5.6 mg/dL (2.5-4.5); Potassium 3.9 mmol/L (3.4-5.0); Sodium 135 mmol/L (137-145)
[2020-11-13] MEDS: ONDANSETRON INJ 4 MG/2 ML VIAL IV PUSH ×2 (09:17→18:09)
[2020-11-13] MEDS: SILVERGEL (ELTA) 45 ML 1 APPLIC TOPICAL (09:18)
[2020-11-13] MEDS: ENOXAPARIN 30 MG/0.3 ML SYRINGE SUB-Q (09:18)
[2020-11-13] MEDS: CYANOCOBALAMIN 1,000 MCG TABLET 1000 MCG PO (09:18)
--- NOTE | 2020-11-13 10:49 | PM.IMPN ---
Progress Note: A&P Assessment and Plan (1) SEEMA (acute kidney injury): Code(s): N17.9 - Acute kidney failure, unspecified Status: Acute Assessment and Plan: Cr normal on 11/08 at 0.9. Started on Vanco and Zosyn. She was continued on her lisinopril and HCTZ but this was last given on 11/08 (held 11/09 due to soft BP then stopped). She deeloped nausea and vomiting. Cr climbed to 3.0 on 11/10. Vanco and Zosyn can cause SEEMA. Consider also dehydration from her nausea and poor oral intake. No contrast exposure. No eosinophilia or urine eos to suggest AIN but consider since she was on a PCN. Bladder scan revealed 150mL. Fluid bolus ordered and NS started. Urine studies pointing toward pre-renal. Renal US normal. UOP down to 925 but already had 700 out. Cr worse at 6.2. Continue IV fluids. Nephrology following. No significant electrolyte abnormalities and she is making urine. Continue to monitor. (2) Cellulitis, leg: Code(s): L03.119 - Cellulitis of unspecified part of limb Status: Acute Assessment and Plan: Patient presents with a small but very deep ulcer in the left lower extremity. No fevers. No elevated white count. Left lower extremity Doppler negative for DVT. CT scan showing deep skin ulceration with diffuse skin thickening and subcutaneous edema throughout the lower leg consistent with cellulitis. POD #5 from debridement. Wound cultures negative. BCx negative. Started on Zosyn, vancomycin and clindamycin. Abx adjusted given the renal failure just to Zosyn; Zosyn held on 11/12 given the increasing Cr levels. Appreciate General surgery input. Continue dressing changes. (3) Stage 4 very severe COPD by GOLD classification: Code(s): J44.9 - Chronic obstructive pulmonary disease, unspecified Status: Acute Assessment and Plan: Patient with severe COPD. Lungs remain clear without wheezing. Patient remains on her 2 L chronically. Continue Spiriva. Continue Albuterol prn (4) Chronic respiratory failure: Code(s): J96.10 - Chronic respiratory failure, unspecified whether with hypoxia or hypercapnia Status: Acute Assessment and Plan: Stable on 2 L O2 nasal cannula. Continue to monitor. (5) Lung malignancy: Code(s): C34.90 - Malignant neoplasm of unspecified part of unspecified bronchus or lung Status: Acute Assessment and Plan: Hx of non small cell lung cancer left lower lobe treated with radiation treatment December 2016. Stable (6) Benign essential HTN: Code(s): I10 - Essential (primary) hypertension Status: Acute Assessment and Plan: Patient's blood pressure was reviewed on 11/13. Blood pressure stable off her home meds. Continue to hold HCTZ and lisinopril. (7) Obstructive sleep apnea: Code(s): G47.33 - Obstructive sleep apnea (adult) (pediatric) Status: Acute Assessment and Plan: Patient mostly compliant with NIV at night. Continue the same. (8) DVT prophylaxis: Code(s): Z29.9 - Encounter for prophylactic measures, unspecified Status: Acute Assessment and Plan: Lovenox Subjective Date/time seen: 11/13/20 10:49 Interval history: 59yo female with COPD and chronic respiratory failure on 2L here for left calf infection. [place] hungry this morning. Tolerate oral intake. Some mild nausea after eating but this improved. She did get a skin tear in the left upper extremity after bumping into the doorjamb walking to the bathroom. She is having good urine output. She is voiding frequently. Exam Narrative: Exam Narrative: AF 98.9 135/69 96 14 98% 2L Gen - NARD lying semi recumbent in bed Chest - clear, distant BS bilaterally, nml RR CV - RRR with S1/S2 Abd - Soft, obese, NT, +BS Ext - 1+ left lower extremity edema Psych - Normal mood and affect Skin - warm and dry. LLE dressing clean and dry; wound with good granulation tissue and area o
--- NOTE | 2020-11-13 13:07 | PM.PNNEP ---
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 - infection (leg cellulitis) - antibiotics (drugs themselves versus possible acute interstitial nephritis) -- however, no peripheral eosinophilia and urine eosinophils negative renal ultrasound without obstruction serologies negative to date agree with IVFs as tolerated - continue attempts to optimize hemodynamics as tolerated creatinine still rising -- but urine output is improving and no critical electrolytes noted follow repeat labs and UOP (2) Left leg cellulitis: Code(s): L03.116 - Cellulitis of left lower limb Status: Acute Assessment and Plan: on antibiotics cultures noted s/p debridement by Surgery on 11/08/20 local wound care pain control (3) COPD (chronic obstructive pulmonary disease): Code(s): J44.9 - Chronic obstructive pulmonary disease, unspecified Status: Chronic Assessment and Plan: appears relatively stable continue supplemental oxygen and inhalers (4) Benign essential HTN: Code(s): I10 - Essential (primary) hypertension Status: Acute Assessment and Plan: appears to be doing better BP medications on hold follow trend of hemodynamics Will continue to follow. Subjective Date/time seen: 11/13/20 13:07 Appears to be eating better with minimal nausea; continues to make good urine output; no apparent distress voiced at this time; no events/issues overnight or earlier this AM; hemodynamics appear to be doing better as well; no other acute complaints to report. Exam Narrative: Exam Narrative: General: WD/WN female in NAD Heart: normal S1 and S2; no rub Lungs: clear to auscultation Abdomen: soft, nontender, nondistended, positive bowel sounds Extremities: no cyanosis or clubbing; no edema Skin: left LE edema/dressing noted Objective Data Vital Signs Vital Signs: Vital Signs Temp Pulse Resp BP Pulse Ox 11/13/20 08:00 37.2 C 96 14 135/69 98 11/13/20 05:50 36.8 C 96 18 132/55 L 97 11/12/20 22:33 101 H 99 11/12/20 20:30 100 11/12/20 20:20 36.4 C L 103 H 16 138/77 100 Intake/Output Intake/Output: Intake & Output 11/10/20 11/11/20 11/12/20 11/13/20 23:59 23:59 23:59 23:59 Intake Total 2610 2900 3156 2690 Output Total 765 1250 925 800 Balance 1845 1650 2231 1890 Meds/Results Medications: Active Medications Generic Name Dose Route Start Last Admin Trade Name Freq PRN Reason Stop Dose Admin Acetaminophen 650 mg 11/07/20 15:58 11/08/20 04:22 Acetaminophen 325 Mg Tablet PO 650 mg Q4H PRN Administration Mild Pain (1-3) or Fever Hydrocodone Bitart/Acetaminophen 1 tab 11/07/20 15:44 11/13/20 09:24 Hydrocodone/Acetaminophen (*Crx) 7.5-325 Mg Tablet PO 1 tab Q4H PRN Administration pain 4-6 Albuterol 1 puff 11/07/20 15:44 Albuterol Sulfate (*Sp) Aerosol 1 Puff INHALATION Q4H PRN shortness of breath or wheezing Albuterol 5 mg 11/11/20 15:40 Albuterol Sulfate Neb 2.5 Mg/0.5 Ml Inh INHALATION Q6HRT PRN Shortness Of Breath Or Wheezing Calcium Carbonate 200 mg 11/10/20 00:28 11/12/20 20:31 Calcium Carbonate (Tums) 500 Mg (200 Mg Elemental) PO 200 mg Q6H PRN Administration Indigestion Cyanocobalamin 1,000 mcg 11/08/20 09:00 11/13/20 09:18 Cyanocobalamin 1,000 Mcg Tablet PO 1,000 mcg DAILY [place] Administration Cyclobenzaprine HCl 10 mg 11/07/20 15:44 Cyclobenzaprine Hcl 10 Mg Table
[2020-11-13] MEDS: MONTELUKAST SODIUM 10 MG TABLET PO (20:45)
[2020-11-13] MEDS: MICONAZOLE NITRATE 2% VAGINAL CREAM 45 GM TUBE 1 APPFUL VAGINAL (20:45)
[2020-11-14] MEDS: HYDROcodone/acetaminophen (*CRX) 7.5-325 MG TABLET 1 TAB PO ×5 (01:37→20:01)
[2020-11-14 05:26] VITALS: BP 122/58; PULSE 98; RESP 18; TEMP 37; O2SAT 96
[2020-11-14] MEDS: ONDANSETRON INJ 4 MG/2 ML VIAL IV PUSH ×3 (05:55→20:18)
[2020-11-14 05:59] LABS: Hemoglobin 9.2 g/dL (12.0-15.0); Mean Corpuscular HGB Conc 30.7 g/dl (32-36); Mean Corpuscular Hemoglobin 28.8 pg (26-34); Mean Corpuscular Volume 93.8 fl (80-100); Mean Platelet Volume 9.1 fl (7.4-10.4); Platelet Count Result 329 k/mm3 (150-375); Red Cell Distribution Width 12.3 % (11.5-14.5); White Blood Count 10.3 K/mm3 (4.5-10.0)
[2020-11-14 06:10] LABS: Anion Gap 7 mmol/L (8-16); Blood Urea Nitrogen 30 mg/dL (7-17); Calcium 8.2 mg/dL (8.4-10.2); Carbon Dioxide 24 mmol/L (22-30); Chloride 108 mmol/L (98-107); Estimated CRCL calculation 11 ml/min; Estimated Glomerular Filt Rate 6; Glucose 94 mg/dL (65-105); Sodium 139 mmol/L (137-145)
[2020-11-14] MEDS: SODIUM CHLORIDE 0.9% IV 1,000 ML 100 ML IV CONT ×2 (08:41→19:23)
[2020-11-14] MEDS: CYANOCOBALAMIN 1,000 MCG TABLET 1000 MCG PO (08:44)
[2020-11-14] MEDS: ENOXAPARIN 30 MG/0.3 ML SYRINGE SUB-Q (08:44)
[2020-11-14] MEDS: SILVERGEL (ELTA) 45 ML 1 APPLIC TOPICAL (08:46)
--- NOTE | 2020-11-14 10:23 | P.PNNP_ITS ---
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 * Urine eosinophils are negative * serologies negative to date * agree with IVFs as tolerated - continue attempts to optimize hemodynamics as tolerated * creatinine still rising but the rate of rise is slower. hopefully will reach a plateau and start to fall. slow recovery may be due to the infection. * she is making a little more urine. * mild uremic symptoms but not enough to start dialysis. (2) Left leg cellulitis: Code(s): L03.116 - Cellulitis of left lower limb Status: Acute Assessment and Plan: * on antibiotics * wbc okay and afebrile. * cultures noted * s/p debridement by Surgery on 11/08/20 * local wound care * pain control (3) COPD (chronic obstructive pulmonary disease): Code(s): J44.9 - Chronic obstructive pulmonary disease, unspecified Status: Chronic Assessment and Plan: * appears relatively stable * continue supplemental oxygen and inhalers (4) Benign essential HTN: Code(s): I10 - Essential (primary) hypertension Status: Acute Assessment and Plan: * systolic in the 120 to 140 range. * BP medications on hold Will continue to follow. Subjective Date/time seen: 11/14/20 10:23 Interval history: Ricardo is feeling a little better today. Making a little more urine but not as much as she likes. Eating okay. Intermittent nausea during the day at random times. Review of Systems Cardiovascular: Cardiovascular: Reports no additional cardiovascular complaints Respiratory: Respiratory: Reports no additional respiratory complaints Gastrointestinal: Gastrointestinal: Reports no additional gastrointestinal complaints Genitourinary: Genitourinary: Reports no additional female genitourinary complaints Exam Narrative: Exam Narrative: General: WD/WN female in NAD Heart: normal S1 and S2; no rub Lungs: clear Abdomen: soft, nontender, nondistended, positive bowel sounds Extremities: no edema Skin: left LE edema/dressing noted Objective Data Vital Signs Vital Signs: Vital Signs - 24 hr 11/13/20 16:00 11/13/20 19:45 11/13/20 20:31 Temperature 36.0 C L 36.8 C Pulse Rate 56 L 89 82 Respiratory Rate 20 18 18 Blood Pressure 124/63 136/49 L Pulse Oximetry 96 98 100 11/13/20 21:00 11/13/20 23:45 11/14/20 05:26 Temperature 37.0 C Pulse Rate 77 98 Respiratory Rate 18 Blood Pressure 122/58 L Pulse Oximetry 100 96 96 Intake/Output Intake/Output: Intake & Output 11/11/20
--- NOTE | 2020-11-14 10:23 | PM.PNNEP ---
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 Urine eosinophils are negative serologies negative to date agree with IVFs as tolerated - continue attempts to optimize hemodynamics as tolerated creatinine still rising but the rate of rise is slower. hopefully will reach a plateau and start to fall. slow recovery may be due to the infection. she is making a little more urine. mild uremic symptoms but not enough to start dialysis. (2) Left leg cellulitis: Code(s): L03.116 - Cellulitis of left lower limb Status: Acute Assessment and Plan: on antibiotics wbc okay and afebrile. cultures noted s/p debridement by Surgery on 11/08/20 local wound care pain control (3) COPD (chronic obstructive pulmonary disease): Code(s): J44.9 - Chronic obstructive pulmonary disease, unspecified Status: Chronic Assessment and Plan: appears relatively stable continue supplemental oxygen and inhalers (4) Benign essential HTN: Code(s): I10 - Essential (primary) hypertension Status: Acute Assessment and Plan: systolic in the 120 to 140 range. BP medications on hold Will continue to follow. Subjective Date/time seen: 11/14/20 10:23 Interval history: Ricardo is feeling a little better today. Making a little more urine but not as much as she likes. Eating okay. Intermittent nausea during the day at random times. Review of Systems Cardiovascular: Cardiovascular: Reports no additional cardiovascular complaints Respiratory: Respiratory: Reports no additional respiratory complaints Gastrointestinal: Gastrointestinal: Reports no additional gastrointestinal complaints Genitourinary: Genitourinary: Reports no additional female genitourinary complaints Exam Narrative: Exam Narrative: General: WD/WN female in NAD Heart: normal S1 and S2; no rub Lungs: clear Abdomen: soft, nontender, nondistended, positive bowel sounds Extremities: no edema Skin: left LE edema/dressing noted Objective Data Vital Signs Vital Signs: Vital Signs - 24 hr 11/13/20 16:00 11/13/20 19:45 11/13/20 20:31 Temperature 36.0 C L 36.8 C Pulse Rate 56 L 89 82 Respiratory Rate 20 18 18 Blood Pressure 124/63 136/49 L Pulse Oximetry 96 98 100 11/13/20 21:00 11/13/20 23:45 11/14/20 05:26 Temperature 37.0 C Pulse Rate 77 98 Respiratory Rate 18 Blood Pressure 122/58 L Pulse Oximetry 100 96 96 Intake/Output Intake/Output: Intake & Output 11/11/20 11/12/20 11/13/20 11/14/20 23:59 23:59 23:59 23:59 Intake Total 2900 3156 3930 1340 Output Total 6213 447 8809 100 Balance 1650 2231 2830 1240 Meds/Results Medications: Active Medications Generic Name Dose Route Start Last Admin Trade Name Freq PRN Reason Stop Dose Admin Acetaminophen 650 mg 11/07/20 15:58 11/08/20 04:22 Acetaminophen 325 Mg Tablet PO 650 mg Q4H PRN Administration Mild Pain (1-3) or Fever Hydrocodone Bitart/Acetaminophen 1 tab 11/07/20 15:44 11/14/20 05:55 Hydrocodone/Acetaminophen (*Crx) 7.5-325 Mg Tablet PO 1 tab Q4H PRN Administration pain 4-6 Albuterol 1 puff 11/07/20 15:44 Albuterol Sulfate (*Sp) Aerosol 1 Puff INHALAT
--- NOTE | 2020-11-14 11:01 | PM.IMPN ---
Progress Note: A&P Assessment and Plan (1) SEEMA (acute kidney injury): Code(s): N17.9 - Acute kidney failure, unspecified Status: Acute Assessment and Plan: Cr normal on 11/08 at 0.9. Started on Vanco and Zosyn. She was continued on her lisinopril and HCTZ but this was last given on 11/08 (held 11/09 due to soft BP then stopped). She developed nausea and vomiting. Cr climbed to 3.0 on 11/10. Vanco and Zosyn can cause SEEMA. Consider also dehydration from her nausea and poor oral intake. No contrast exposure. No eosinophilia or urine eos to suggest AIN but consider since she was on a PCN. Bladder scan revealed 150mL. Fluid bolus ordered and NS started. Urine studies pointing toward pre-renal. Renal US normal. UOP 1100 yesterday. Cr worse at 6.6 but may be peaking. Continue IV fluids. Nephrology following. No significant electrolyte abnormalities and she is making urine. Continue to monitor. Bumex? (2) Cellulitis, leg: Code(s): L03.119 - Cellulitis of unspecified part of limb Status: Acute Assessment and Plan: Patient presents with a small but very deep ulcer in the left lower extremity. No fevers. No elevated white count. Left lower extremity Doppler negative for DVT. CT scan showing deep skin ulceration with diffuse skin thickening and subcutaneous edema throughout the lower leg consistent with cellulitis. POD #6 from debridement. Wound cultures negative. BCx negative. Started on Zosyn, vancomycin and clindamycin. Abx adjusted given the renal failure just to Zosyn; Zosyn held on 11/12 given the increasing Cr levels. Appreciate General surgery input. Continue dressing changes. Continue to hold abx for now. (3) Stage 4 very severe COPD by GOLD classification: Code(s): J44.9 - Chronic obstructive pulmonary disease, unspecified Status: Acute Assessment and Plan: Patient with severe COPD. Lungs remain clear without wheezing. Patient remains on her 2 L chronically. Continue Spiriva. Continue Albuterol prn (4) Anemia: Code(s): D64.9 - Anemia, unspecified Status: Acute Assessment and Plan: Hgb 11.4 on admission but has dropped to the 9 range but stable past few days. Probably chronic anemia fro her underlying medical problems. Has hx of B12 deficiency as well. Will check iron studies, B12. Follow (5) Chronic respiratory failure: Code(s): J96.10 - Chronic respiratory failure, unspecified whether with hypoxia or hypercapnia Status: Acute Assessment and Plan: Stable on 2 L O2 nasal cannula. Continue to monitor. (6) Lung malignancy: Code(s): C34.90 - Malignant neoplasm of unspecified part of unspecified bronchus or lung Status: Acute Assessment and Plan: Hx of non small cell lung cancer left lower lobe treated with radiation treatment December 2016. Stable (7) Benign essential HTN: Code(s): I10 - Essential (primary) hypertension Status: Acute Assessment and Plan: Patient's blood pressure was reviewed on 11/14 Blood pressure stable off her home meds. Continue to hold HCTZ and lisinopril. (8) Obstructive sleep apnea: Code(s): G47.33 - Obstructive sleep apnea (adult) (pediatric) Status: Acute Assessment and Plan: Patient mostly compliant with NIV at night. Continue the same. (9) DVT prophylaxis: Code(s): Z29.9 - Encounter for prophylactic measures, unspecified Status: Acute Assessment and Plan: Lovenox Subjective Date/time seen: 11/14/20 11:01 Interval history: 59yo female with COPD and chronic respiratory failure on 2L here for left calf infection. Eating better. Slight nausea this morning but able to eat all her breakfast later. No vomiting. Having 2-3 stools but not liquid diarrhea. Tolerated the CPAP last night. Complains of right knee arthritic pain but left leg minimal pain. Exam Narrative: Exam Narrativ
[2020-11-14 12:08] VITALS: BMI 38.5
[2020-11-14 14:00] VITALS: BP 121/64; PULSE 94; RESP 18; TEMP 36.6; O2SAT 100
[2020-11-14] MEDS: CALCIUM CARBONATE (TUMS) 500 MG (200 MG ELEMENTAL) PO (17:11)
[2020-11-14 19:30] VITALS: PULSE 99; RESP 18; O2SAT 99
[2020-11-14 19:53] LABS: Anti Streptolysin O Screen <50 IU/mL (<200)
[2020-11-14] MEDS: MONTELUKAST SODIUM 10 MG TABLET PO (20:01)
[2020-11-14] MEDS: MICONAZOLE NITRATE 2% VAGINAL CREAM 45 GM TUBE 1 APPFUL VAGINAL (20:03)
[2020-11-14 21:52] VITALS: BP 133/66; PULSE 100; RESP 18; TEMP 36.1; O2SAT 99
[2020-11-14 22:35] VITALS: PULSE 99; O2SAT 98
[2020-11-15] MEDS: HYDROcodone/acetaminophen (*CRX) 7.5-325 MG TABLET 1 TAB PO ×5 (01:46→21:24)
[2020-11-15 04:50] VITALS: BP 121/73; PULSE 90; RESP 18; TEMP 36.1; O2SAT 100
[2020-11-15] MEDS: ONDANSETRON INJ 4 MG/2 ML VIAL IV PUSH ×3 (05:26→21:28)
[2020-11-15] MEDS: SODIUM CHLORIDE 0.9% IV 1,000 ML 100 ML IV CONT (05:30)
[2020-11-15 06:02] LABS: Albumin Level 3.2 g/dL (3.5-5.1); Anion Gap 7 mmol/L (8-16); Blood Urea Nitrogen 30 mg/dL (7-17); Calcium 8.3 mg/dL (8.4-10.2); Carbon Dioxide 22 mmol/L (22-30); Chloride 107 mmol/L (98-107); Estimated CRCL calculation 11 ml/min; Estimated Glomerular Filt Rate 6; Glucose 99 mg/dL (65-105); Phosphorus 5.5 mg/dL (2.5-4.5); Potassium 3.9 mmol/L (3.4-5.0); Sodium 136 mmol/L (137-145)
[2020-11-15 06:05] LABS: Hematocrit 30.6 % (37.0-47.0); Hemoglobin 9.6 g/dL (12.0-15.0); Mean Corpuscular HGB Conc 31.4 g/dl (32-36); Mean Corpuscular Hemoglobin 28.9 pg (26-34); Mean Corpuscular Volume 92.2 fl (80-100); Mean Platelet Volume 9.3 fl (7.4-10.4); Platelet Count Result 383 k/mm3 (150-375); Red Blood Count 3.32 M/mm3 (4.2-5.4); Red Cell Distribution Width 12.7 % (11.5-14.5); White Blood Count 12.4 K/mm3 (4.5-10.0)
[2020-11-15 07:01] LABS: Iron 24 ug/dL (37-170)
[2020-11-15 07:10] LABS: Percent Iron Saturation 12 % (20-50)
[2020-11-15 07:48] LABS: Folic Acid 14.4 ng/mL (2.76->20)
--- NOTE | 2020-11-15 08:21 | P.PNNP_ITS ---
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 * Urine eosinophils are negative * serologies negative to date * Her creatinine only shara a little bit between yesterday and today. Hopefully she is reaching a plateau. * Patient has some fluid overload. Will stop the IV fluids and give her a s lissa dose of diuretics. * Recheck the creatinine tomorrow. (2) Left leg cellulitis: Code(s): L03.116 - Cellulitis of left lower limb Status: Acute Assessment and Plan: * on antibiotics * wbc okay and afebrile. * Blood cultures negative. * Skin cultures just shows skin kishore * s/p debridement by Surgery on 11/08/20 * local wound care per nursing (3) COPD (chronic obstructive pulmonary disease): Code(s): J44.9 - Chronic obstructive pulmonary disease, unspecified Status: Chronic Assessment and Plan: * appears relatively stable * continue supplemental oxygen and inhalers (4) Benign essential HTN: Code(s): I10 - Essential (primary) hypertension Status: Acute Assessment and Plan: * systolic in the 120 to 140 range. * BP medications on hold Will continue to follow. Subjective Date/time seen: 11/15/20 08:21 Interval history: Ricardo is About the same. Making some urine. Eating okay. Intermittent nausea during the day at random times. Review of Systems Cardiovascular: Cardiovascular: Reports no additional cardiovascular complaints Respiratory: Respiratory: Reports no additional respiratory complaints Gastrointestinal: Gastrointestinal: Reports no additional gastrointestinal complaints Genitourinary: Genitourinary: Reports no additional female genitourinary complaints Exam Narrative: Exam Narrative: General: WD/WN female in NAD Heart: normal S1 and S2; no rub Lungs: clear Bilaterally Abdomen: soft, nontender, nondistended, positive bowel sounds Extremities: 1 to 2+ presacral edema. Her hands are swollen today for the 1st time. Skin: left LE edema/dressing noted Objective Data Vital Signs Vital Signs: Vital Signs - 24 hr 11/14/20 14:00 11/14/20 19:30 11/14/20 21:52 Temperature 36.6 C 36.1 C L Pulse Rate 94 99 100 Respiratory Rate 18 18 18 Blood Pressure 121/64 133/66 Pulse Oximetry 100 99 99 11/14/20 22:35 11/15/20 04:50 Temperature 36.1 C L Pulse Rate 99 90 Respiratory Rate 18 Blood Pressure 121/73 Pulse Oximetry 98 100 Intake/Output Intake/Output: Intake & Output 11/12/20 11/13/20 11/14/20 11/15/20 23:59 23
--- NOTE | 2020-11-15 08:21 | PM.PNNEP ---
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 Urine eosinophils are negative serologies negative to date Her creatinine only shara a little bit between yesterday and today. Hopefully she is reaching a plateau. Patient has some fluid overload. Will stop the IV fluids and give her a single dose of diuretics. Recheck the creatinine tomorrow. (2) Left leg cellulitis: Code(s): L03.116 - Cellulitis of left lower limb Status: Acute Assessment and Plan: on antibiotics wbc okay and afebrile. Blood cultures negative. Skin cultures just shows skin kishore s/p debridement by Surgery on 11/08/20 local wound care per nursing (3) COPD (chronic obstructive pulmonary disease): Code(s): J44.9 - Chronic obstructive pulmonary disease, unspecified Status: Chronic Assessment and Plan: appears relatively stable continue supplemental oxygen and inhalers (4) Benign essential HTN: Code(s): I10 - Essential (primary) hypertension Status: Acute Assessment and Plan: systolic in the 120 to 140 range. BP medications on hold Will continue to follow. Subjective Date/time seen: 11/15/20 08:21 Interval history: Ricardo is About the same. Making some urine. Eating okay. Intermittent nausea during the day at random times. Review of Systems Cardiovascular: Cardiovascular: Reports no additional cardiovascular complaints Respiratory: Respiratory: Reports no additional respiratory complaints Gastrointestinal: Gastrointestinal: Reports no additional gastrointestinal complaints Genitourinary: Genitourinary: Reports no additional female genitourinary complaints Exam Narrative: Exam Narrative: General: WD/WN female in NAD Heart: normal S1 and S2; no rub Lungs: clear Bilaterally Abdomen: soft, nontender, nondistended, positive bowel sounds Extremities: 1 to 2+ presacral edema. Her hands are swollen today for the 1st time. Skin: left LE edema/dressing noted Objective Data Vital Signs Vital Signs: Vital Signs - 24 hr 11/14/20 14:00 11/14/20 19:30 11/14/20 21:52 Temperature 36.6 C 36.1 C L Pulse Rate 94 99 100 Respiratory Rate 18 18 18 Blood Pressure 121/64 133/66 Pulse Oximetry 100 99 99 11/14/20 22:35 11/15/20 04:50 Temperature 36.1 C L Pulse Rate 99 90 Respiratory Rate 18 Blood Pressure 121/73 Pulse Oximetry 98 100 Intake/Output Intake/Output: Intake & Output 11/12/20 11/13/20 11/14/20 11/15/20 23:59 23:59 23:59 23:59 Intake Total 3156 3930 3170 1250 Output Total 925 1100 600 375 Balance 2231 2830 2570 875 Meds/Results Medications: Active Medications Generic Name Dose Route Start Last Admin Trade Name Freq PRN Reason Stop Dose Admin Acetaminophen 650 mg 11/07/20 15:58 11/08/20 04:22 Acetaminophen 325 Mg Tablet PO 650 mg Q4H PRN Administration Mild Pain (1-3) or Fever Hydrocodone Bitart/Acetaminophen 1 tab 11/07/20 15:44 11/15/20 07:34 Hydrocodone/Acetaminophen (*Crx) 7.5-325 Mg Tablet PO 1 tab Q4H PRN Administration pain 4-6 Albuterol 1 puff 11/07/20 15:44 Albuterol Sulfate (*Sp) Aerosol 1 Puff INHALATION Q4H PRN shortness of breath
[2020-11-15] MEDS: BUMETANIDE INJ 1 MG/4 ML VIAL 2 MG IV PUSH (08:47)
[2020-11-15] MEDS: CYANOCOBALAMIN 1,000 MCG TABLET 1000 MCG PO (08:48)
[2020-11-15] MEDS: ENOXAPARIN 30 MG/0.3 ML SYRINGE SUB-Q (08:48)
[2020-11-15] MEDS: SILVERGEL (ELTA) 45 ML 1 APPLIC TOPICAL (08:49)
[2020-11-15 08:50] VITALS: O2SAT 100
--- NOTE | 2020-11-15 13:58 | PM.IMPN ---
Progress Note: A&P Assessment and Plan (1) SEEMA (acute kidney injury): Code(s): N17.9 - Acute kidney failure, unspecified Status: Acute Assessment and Plan: Cr normal on 11/08 at 0.9 She was continued on her lisinopril and HCTZ but this was last given on 11/08 (held 11/09 due to soft BP then stopped) Cr climbed to 3.0 on 11/10 Consider also dehydration from her nausea and poor oral intake Urine studies pointing toward pre-renal Renal US normal Cr 6.7 today Nephrology following, recommendations appreciated S/p IV Bumex Monitor (2) Cellulitis, leg: Code(s): L03.119 - Cellulitis of unspecified part of limb Status: Acute Assessment and Plan: Small but very deep ulcer LLE Afebrile WBC wnl, LLE Doppler negative for DVT CT scan showing deep skin ulceration with diffuse skin thickening and subcutaneous edema throughout the lower leg consistent with cellulitis POD #6 from debridement WC negative BCx negative S/p Zosyn, vancomycin and clindamycin, Abx adjusted given the renal failure just to Zosyn; Zosyn held on 11/12 given the increasing Cr levels GS following, recommendations appreciated Continue dressing changes (3) Stage 4 very severe COPD by GOLD classification: Code(s): J44.9 - Chronic obstructive pulmonary disease, unspecified Status: Acute Assessment and Plan: Patient with severe COPD No acute exacerbation 2 L chronically Continue Spiriva and Albuterol prn (4) Anemia: Code(s): D64.9 - Anemia, unspecified Status: Acute Assessment and Plan: Hgb 11.4 on admission but has dropped to the 9 range but stable past few days. Probably chronic anemia fro her underlying medical problems Has hx of B12 deficiency as well Iron studies, low, will supplement B12 wnl Transfuse if <7 Monitor (5) Chronic respiratory failure: Code(s): J96.10 - Chronic respiratory failure, unspecified whether with hypoxia or hypercapnia Status: Acute Assessment and Plan: Stable on 2 L O2 nasal cannula Continue to monitor (6) Lung malignancy: Code(s): C34.90 - Malignant neoplasm of unspecified part of unspecified bronchus or lung Status: Acute Assessment and Plan: Hx of non small cell lung cancer left lower lobe treated with radiation treatment December 2016 (7) Benign essential HTN: Code(s): I10 - Essential (primary) hypertension Status: Acute Assessment and Plan: Patient's blood pressure was reviewed on 11/14 Blood pressure stable off her home meds Continue to hold HCTZ and lisinopril. (8) Obstructive sleep apnea: Code(s): G47.33 - Obstructive sleep apnea (adult) (pediatric) Status: Acute Assessment and Plan: Patient mostly compliant with NIV at night Continue (9) DVT prophylaxis: Code(s): Z29.9 - Encounter for prophylactic measures, unspecified Status: Acute Assessment and Plan: Lovenox Additional Plan # left leg cellulitis with non healing ulceration: ?venous ulceration or necrotizing fascitis. will get ct lower extrmeity. wbc count is normal. on clindamycin at home. will switch to vancomycin for MRSA coverage and zosyn for gram neg and anaerobes. culture from the wound has been taken already in the ED. blood cultures has been obtained as well. will continue clindamcyin for anti toxiin effect fo this antibiotics. I would suspect she will need some debridement. will consult general surgery for evaluation for this. venous duplex negative for dvt # Benign essential HTN # morbid obesity # Chronic bilateral low back pain and chronic neck pain: home medications. # Chronic depression # COPD with chronic respiratory failrue on home oxygen 24 x 7 # Chronic left lower extremity edema likely due to peripheral venous insufficiency. # GERD: # hx of non small cell lung cnacer and left lower lobe treated with radaition treatment December 2016 # WILLIAMS # Vitamin B12 deficienc
[2020-11-15 15:50] VITALS: O2SAT 97
[2020-11-15 16:00] VITALS: BP 137/80; PULSE 95; RESP 16; TEMP 36.3; O2SAT 100
[2020-11-15] MEDS: CALCIUM CARBONATE (TUMS) 500 MG (200 MG ELEMENTAL) PO (17:00)
[2020-11-15] MEDS: MONTELUKAST SODIUM 10 MG TABLET PO (21:24)
[2020-11-15] MEDS: MICONAZOLE NITRATE 2% VAGINAL CREAM 45 GM TUBE 1 APPFUL VAGINAL (21:28)
[2020-11-15 21:41] VITALS: BP 138/77; PULSE 105; RESP 22; TEMP 36.6; O2SAT 95
[2020-11-16] MEDS: ONDANSETRON INJ 4 MG/2 ML VIAL IV PUSH ×3 (03:32→17:27)
[2020-11-16] MEDS: HYDROcodone/acetaminophen (*CRX) 7.5-325 MG TABLET 1 TAB PO ×5 (03:35→22:17)
[2020-11-16 05:24] VITALS: BP 124/69; PULSE 100; RESP 18; TEMP 36.1; O2SAT 98
[2020-11-16 05:48] LABS: Mean Corpuscular Volume 90.3 fl (80-100); Mean Platelet Volume 9.2 fl (7.4-10.4); Platelet Count Result 362 k/mm3 (150-375); Red Blood Count 3.21 M/mm3 (4.2-5.4); Red Cell Distribution Width 12.6 % (11.5-14.5); White Blood Count 9.1 K/mm3 (4.5-10.0)
[2020-11-16 06:03] LABS: Albumin Level 3.1 g/dL (3.5-5.1); Anion Gap 6 mmol/L (8-16); Blood Urea Nitrogen 37 mg/dL (7-17); Calcium 8.6 mg/dL (8.4-10.2); Carbon Dioxide 23 mmol/L (22-30); Chloride 109 mmol/L (98-107); Estimated CRCL calculation 11 ml/min; Estimated Glomerular Filt Rate 6; Glucose 103 mg/dL (65-105); Phosphorus 5.3 mg/dL (2.5-4.5); Sodium 138 mmol/L (137-145)
--- NOTE | 2020-11-16 09:02 | P.PNNP_ITS ---
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 * Urine eosinophils are negative * serologies: complements okay. ASO okay. somehow other serologies not done. will reorder. * Her creatinine up slightly again. . * Patient's volume status looks stable. didn't respond to diuretics very we ll. * no significant uremic symptoms. * will continue to watch for recovery of renal function. * Recheck the creatinine tomorrow. (2) Left leg cellulitis: Code(s): L03.116 - Cellulitis of left lower limb Status: Acute Assessment and Plan: * on antibiotics * wbc okay and afebrile. * Blood cultures negative. * Skin cultures just shows skin kishore * s/p debridement by Surgery on 11/08/20 * local wound care per nursing (3) COPD (chronic obstructive pulmonary disease): Code(s): J44.9 - Chronic obstructive pulmonary disease, unspecified Status: Chronic Assessment and Plan: * appears relatively stable * continue supplemental oxygen and inhalers (4) Benign essential HTN: Code(s): I10 - Essential (primary) hypertension Status: Acute Assessment and Plan: * systolic in the 120 to 140 range. * BP medications on hold Will continue to follow. Subjective Date/time seen: 11/16/20 09:03 Interval history: Ricardo is feeling about the same. Eating okay. A little nausea every once in a while. No chest pain. no shortness of breath out of the range of normal Making some urine. Eating okay. Review of Systems Cardiovascular: Cardiovascular: Reports no additional cardiovascular complaints Respiratory: Respiratory: Reports no additional respiratory complaints Gastrointestinal: Gastrointestinal: Reports no additional gastrointestinal complaints Genitourinary: Genitourinary: Reports no additional female genitourinary complaints Exam Narrative: Exam Narrative: General: WD/WN female in NAD Heart: normal S1 and S2; no rub Lungs: clear Bilaterally Abdomen: soft, nontender, nondistended, positive bowel sounds Extremities: 1 to 2+ presacral edema. Skin: left LE edema/dressing noted Objective Data Vital Signs Vital Signs: Vital Signs - 24 hr 11/15/20 15:50 11/15/20 16:00 11/15/20 21:41 Temperature 36.3 C L 36.6 C Pulse Rate 95 105 H Respiratory Rate 16 22 H Blood Pressure 137/80 138/77 Pulse Oximetry 97 100 95 11/16/20 05:24 Temperature 36.1 C L Pulse Rate 100 Respiratory Rate 18 Blood Pressure 124/69 Pulse Oximetry 98 Intake/Output Intake/Output:
--- NOTE | 2020-11-16 09:02 | PM.PNNEP ---
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 Urine eosinophils are negative serologies: complements okay. ASO okay. somehow other serologies not done. will reorder. Her creatinine up slightly again. . Patient's volume status looks stable. didn't respond to diuretics very well. no significant uremic symptoms. will continue to watch for recovery of renal function. Recheck the creatinine tomorrow. (2) Left leg cellulitis: Code(s): L03.116 - Cellulitis of left lower limb Status: Acute Assessment and Plan: on antibiotics wbc okay and afebrile. Blood cultures negative. Skin cultures just shows skin kishore s/p debridement by Surgery on 11/08/20 local wound care per nursing (3) COPD (chronic obstructive pulmonary disease): Code(s): J44.9 - Chronic obstructive pulmonary disease, unspecified Status: Chronic Assessment and Plan: appears relatively stable continue supplemental oxygen and inhalers (4) Benign essential HTN: Code(s): I10 - Essential (primary) hypertension Status: Acute Assessment and Plan: systolic in the 120 to 140 range. BP medications on hold Will continue to follow. Subjective Date/time seen: 11/16/20 09:03 Interval history: Ricardo is feeling about the same. Eating okay. A little nausea every once in a while. No chest pain. no shortness of breath out of the range of normal Making some urine. Eating okay. Review of Systems Cardiovascular: Cardiovascular: Reports no additional cardiovascular complaints Respiratory: Respiratory: Reports no additional respiratory complaints Gastrointestinal: Gastrointestinal: Reports no additional gastrointestinal complaints Genitourinary: Genitourinary: Reports no additional female genitourinary complaints Exam Narrative: Exam Narrative: General: WD/WN female in NAD Heart: normal S1 and S2; no rub Lungs: clear Bilaterally Abdomen: soft, nontender, nondistended, positive bowel sounds Extremities: 1 to 2+ presacral edema. Skin: left LE edema/dressing noted Objective Data Vital Signs Vital Signs: Vital Signs - 24 hr 11/15/20 15:50 11/15/20 16:00 11/15/20 21:41 Temperature 36.3 C L 36.6 C Pulse Rate 95 105 H Respiratory Rate 16 22 H Blood Pressure 137/80 138/77 Pulse Oximetry 97 100 95 11/16/20 05:24 Temperature 36.1 C L Pulse Rate 100 Respiratory Rate 18 Blood Pressure 124/69 Pulse Oximetry 98 Intake/Output Intake/Output: Intake & Output 11/13/20 11/14/20 11/15/20 11/16/20 23:59 23:59 23:59 23:59 Intake Total 3930 3170 1680 400 Output Total 1100 600 965 500 Balance 2830 2570 715 -100 Meds/Results Medications: Active Medications Generic Name Dose Route Start Last Admin Trade Name Freq PRN Reason Stop Dose Admin Acetaminophen 650 mg 11/07/20 15:58 11/08/20 04:22 Acetaminophen 325 Mg Tablet PO 650 mg Q4H PRN Administration Mild Pain (1-3) or Fever Hydrocodone Bitart/Acetaminophen 1 tab 11/07/20 15:44 11/16/20 03:35 Hydrocodone/Acetaminophen (*Crx) 7.5-325 Mg Tablet PO 1 tab Q4H PRN Administration pain 4-6 Albuterol 1 puff 11/07/20 15:44
[2020-11-16] MEDS: FERROUS SULFATE 324 MG TABLET PO (09:21)
[2020-11-16] MEDS: ENOXAPARIN 30 MG/0.3 ML SYRINGE SUB-Q (09:21)
[2020-11-16] MEDS: CYANOCOBALAMIN 1,000 MCG TABLET 1000 MCG PO (09:21)
[2020-11-16] MEDS: SILVERGEL (ELTA) 45 ML 1 APPLIC TOPICAL (09:22)
--- NOTE | 2020-11-16 13:19 | PM.IMPN ---
Progress Note: A&P Assessment and Plan (1) SEEMA (acute kidney injury): Code(s): N17.9 - Acute kidney failure, unspecified Status: Acute Assessment and Plan: Cr normal on 11/08 at 0.9 She was continued on her lisinopril and HCTZ but this was last given on 11/08 (held 11/09 due to soft BP then stopped) Cr climbed to 3.0 on 11/10 Consider also dehydration from her nausea and poor oral intake Urine studies pointing toward pre-renal Renal US normal Cr 6.7-->6.9 today Nephrology following, recommendations appreciated S/p IV Bumex, with no improvement Monitor (2) Cellulitis, leg: Code(s): L03.119 - Cellulitis of unspecified part of limb Status: Acute Assessment and Plan: Small but very deep ulcer LLE Afebrile WBC wnl, LLE Doppler negative for DVT CT scan showing deep skin ulceration with diffuse skin thickening and subcutaneous edema throughout the lower leg consistent with cellulitis POD #6 from debridement WC negative BCx negative S/p Zosyn, vancomycin and clindamycin, Abx adjusted given the renal failure just to Zosyn; Zosyn held on 11/12 given the increasing Cr levels GS following, recommendations appreciated Continue dressing changes (3) Stage 4 very severe COPD by GOLD classification: Code(s): J44.9 - Chronic obstructive pulmonary disease, unspecified Status: Acute Assessment and Plan: Patient with severe COPD No acute exacerbation 2 L chronically Continue Spiriva and Albuterol prn (4) Anemia: Code(s): D64.9 - Anemia, unspecified Status: Acute Assessment and Plan: Hgb 11.4 on admission but has dropped to the 9 range but stable past few days. Probably chronic anemia fro her underlying medical problems Has hx of B12 deficiency as well Iron studies, low, will supplement B12 wnl Transfuse if <7 Monitor (5) Chronic respiratory failure: Code(s): J96.10 - Chronic respiratory failure, unspecified whether with hypoxia or hypercapnia Status: Acute Assessment and Plan: Stable on 2 L O2 nasal cannula Continue to monitor (6) Lung malignancy: Code(s): C34.90 - Malignant neoplasm of unspecified part of unspecified bronchus or lung Status: Acute Assessment and Plan: Hx of non small cell lung cancer left lower lobe treated with radiation treatment December 2016 (7) Benign essential HTN: Code(s): I10 - Essential (primary) hypertension Status: Acute Assessment and Plan: Patient's blood pressure was reviewed on 11/14 Blood pressure stable off her home meds Continue to hold HCTZ and lisinopril (8) Obstructive sleep apnea: Code(s): G47.33 - Obstructive sleep apnea (adult) (pediatric) Status: Acute Assessment and Plan: Patient mostly compliant with NIV at night Continue (9) DVT prophylaxis: Code(s): Z29.9 - Encounter for prophylactic measures, unspecified Status: Acute Assessment and Plan: Lovenox Additional Plan # left leg cellulitis with non healing ulceration: ?venous ulceration or necrotizing fascitis. will get ct lower extrmeity. wbc count is normal. on clindamycin at home. will switch to vancomycin for MRSA coverage and zosyn for gram neg and anaerobes. culture from the wound has been taken already in the ED. blood cultures has been obtained as well. will continue clindamcyin for anti toxiin effect fo this antibiotics. I would suspect she will need some debridement. will consult general surgery for evaluation for this. venous duplex negative for dvt # Benign essential HTN # morbid obesity # Chronic bilateral low back pain and chronic neck pain: home medications. # Chronic depression # COPD with chronic respiratory failrue on home oxygen 24 x 7 # Chronic left lower extremity edema likely due to peripheral venous insufficiency. # GERD: # hx of non small cell lung cnacer and left lower lobe treated with radaition treatment December 2016 # O
[2020-11-16 13:50] VITALS: O2SAT 94
[2020-11-16 14:32] VITALS: BP 132/70; PULSE 100; RESP 16; TEMP 36.4; O2SAT 97
[2020-11-16 20:10] VITALS: BP 134/72; PULSE 101; RESP 18; TEMP 36.2; O2SAT 98
[2020-11-16] MEDS: MONTELUKAST SODIUM 10 MG TABLET PO (20:15)
[2020-11-16] MEDS: MICONAZOLE NITRATE 2% VAGINAL CREAM 45 GM TUBE 1 APPFUL VAGINAL (20:15)
[2020-11-16] MEDS: ONDANSETRON HCL ODT 4 MG TABLET PO (22:18)
[2020-11-17] MEDS: WATER FOR IRRIGATION, STERILE 1,000 ML BOTTLE 1000 ML (01:49)
[2020-11-17] MEDS: HYDROcodone/acetaminophen (*CRX) 7.5-325 MG TABLET 1 TAB PO ×5 (02:23→22:47)
[2020-11-17] MEDS: ONDANSETRON HCL ODT 4 MG TABLET PO ×3 (04:20→17:09)
[2020-11-17 05:46] VITALS: BP 109/65; PULSE 95; RESP 18; TEMP 36.1; O2SAT 99
[2020-11-17 05:59] LABS: Anion Gap 6 mmol/L (8-16); Blood Urea Nitrogen 38 mg/dL (7-17); Calcium 8.5 mg/dL (8.4-10.2); Carbon Dioxide 21 mmol/L (22-30); Chloride 108 mmol/L (98-107); Estimated CRCL calculation 10 ml/min; Estimated Glomerular Filt Rate 6; Glucose 99 mg/dL (65-105); Phosphorus 5.7 mg/dL (2.5-4.5); Potassium 4.1 mmol/L (3.4-5.0); Sodium 135 mmol/L (137-145)
[2020-11-17 07:58] LABS: Creatine Kinase 101 U/L (30-135)
[2020-11-17 08:00] VITALS: O2SAT 96
[2020-11-17 08:15] LABS: Erythrocyte Sedimentation Rate > 140 mm/hr (0-20)
[2020-11-17] MEDS: ENOXAPARIN 30 MG/0.3 ML SYRINGE SUB-Q (10:01)
[2020-11-17] MEDS: SILVERGEL (ELTA) 45 ML 1 APPLIC TOPICAL (10:01)
[2020-11-17] MEDS: FERROUS SULFATE 324 MG TABLET PO (10:01)
[2020-11-17] MEDS: CYANOCOBALAMIN 1,000 MCG TABLET 1000 MCG PO (10:01)
--- NOTE | 2020-11-17 11:17 | PCNFU ---
Nutrition Follow-Up Complete: Inadequate Oral Intake as related to Nausea as evidenced by poor po intake. goal: Adequate Intake of at least 75% of meals/supplements Progressing towards goal. We will continue current goal. Pt current nutrition is Regular with Nepro shakes BID. Last recorded weight is 115 kg, no new weight to report. Bowel Motility:+BM reported /5 Labs Reviewed:Alb 3.0,GFR 6,BUN 38,Cr 7.10,PO4 5.7, Na 135 Meds Noted:Spiriva,Singulair,Lovenox,Vitamin B12, Ewing. Additional Notes: Nutrition follow up. Patient seen today, she states to limited intake. Says she is not a bigger eater in general. Regular diet order: 50% of meals. She does not like the Nepro shakes, but we discussed the benefit so she is going to keep drinking them. Surg consult. Nephrology consult. PO intake encouraged. Monitoring: RD will monitor every 5 days.
--- NOTE | 2020-11-17 12:00 | P.PNNP_ITS ---
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 * Urine eosinophils are negative * serologies: complements okay. ASO okay. somehow other serologies not done. will reorder. * Her creatinine up slightly again. . * Patient's volume status looks stable. didn't respond to diuretics very we ll. * no significant uremic symptoms. * will continue to watch for recovery of renal function. * check renal scan. if it shows uptake without excretion then continue to follow. if not then consider biopsy. she has protein and a little blood in the urine. she says she has had microscopic blood for a long time. will see what the scan shows. * Recheck the creatinine tomorrow. (2) Left leg cellulitis: Code(s): L03.116 - Cellulitis of left lower limb Status: Acute Assessment and Plan: * on antibiotics * wbc okay and afebrile. * Blood cultures negative. * Skin cultures just shows skin kishore * s/p debridement by Surgery on 11/08/20 * local wound care per nursing (3) COPD (chronic obstructive pulmonary disease): Code(s): J44.9 - Chronic obstructive pulmonary disease, unspecified Status: Chronic Assessment and Plan: * appears relatively stable * continue supplemental oxygen and inhalers (4) Benign essential HTN: Code(s): I10 - Essential (primary) hypertension Status: Acute Assessment and Plan: * systolic in the 120 to 140 range. * BP medications on hold Will continue to follow. Subjective Date/time seen: 11/17/20 12:00 Interval history: Ricardo is feeling about the same. Eating okay. Breathing is about the same. Review of Systems Cardiovascular: Cardiovascular: Reports no additional cardiovascular complaints Respiratory: Respiratory: Reports no additional respiratory complaints Gastrointestinal: Gastrointestinal: Reports no additional gastrointestinal complaints Genitourinary: Genitourinary: Reports no additional female genitourinary complaints Exam Narrative: Exam Narrative: General: WD/WN female in NAD Heart: normal S1 and S2; no rub Lungs: clear bilaterally Abdomen: soft, nontender, nondistended, positive bowel sounds Extremities: 1 to 2+ presacral edema. No cyanosis Skin: left LE edema/dressing noted Objective Data Vital Signs Vital Signs: Vital Signs - 24 hr 11/16/20 13:50 11/16/20 14:32 11/16/20 20:10 Temperature 36.4 C 36.2 C L Pulse Rate 100 101 H Respiratory Rate 16 18 Blood Pressure 132/70 134/72 Pulse Oximetry 94 97 98 11/17/20 05:46 11/17/20 08:00 Temperature 36.1 C L Pu
--- NOTE | 2020-11-17 12:00 | PM.PNNEP ---
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 Urine eosinophils are negative serologies: complements okay. ASO okay. somehow other serologies not done. will reorder. Her creatinine up slightly again. . Patient's volume status looks stable. didn't respond to diuretics very well. no significant uremic symptoms. will continue to watch for recovery of renal function. check renal scan. if it shows uptake without excretion then continue to follow. if not then consider biopsy. she has protein and a little blood in the urine. she says she has had microscopic blood for a long time. will see what the scan shows. Recheck the creatinine tomorrow. (2) Left leg cellulitis: Code(s): L03.116 - Cellulitis of left lower limb Status: Acute Assessment and Plan: on antibiotics wbc okay and afebrile. Blood cultures negative. Skin cultures just shows skin kishore s/p debridement by Surgery on 11/08/20 local wound care per nursing (3) COPD (chronic obstructive pulmonary disease): Code(s): J44.9 - Chronic obstructive pulmonary disease, unspecified Status: Chronic Assessment and Plan: appears relatively stable continue supplemental oxygen and inhalers (4) Benign essential HTN: Code(s): I10 - Essential (primary) hypertension Status: Acute Assessment and Plan: systolic in the 120 to 140 range. BP medications on hold Will continue to follow. Subjective Date/time seen: 11/17/20 12:00 Interval history: Ricardo is feeling about the same. Eating okay. Breathing is about the same. Review of Systems Cardiovascular: Cardiovascular: Reports no additional cardiovascular complaints Respiratory: Respiratory: Reports no additional respiratory complaints Gastrointestinal: Gastrointestinal: Reports no additional gastrointestinal complaints Genitourinary: Genitourinary: Reports no additional female genitourinary complaints Exam Narrative: Exam Narrative: General: WD/WN female in NAD Heart: normal S1 and S2; no rub Lungs: clear bilaterally Abdomen: soft, nontender, nondistended, positive bowel sounds Extremities: 1 to 2+ presacral edema. No cyanosis Skin: left LE edema/dressing noted Objective Data Vital Signs Vital Signs: Vital Signs - 24 hr 11/16/20 13:50 11/16/20 14:32 11/16/20 20:10 Temperature 36.4 C 36.2 C L Pulse Rate 100 101 H Respiratory Rate 16 18 Blood Pressure 132/70 134/72 Pulse Oximetry 94 97 98 11/17/20 05:46 11/17/20 08:00 Temperature 36.1 C L Pulse Rate 95 Respiratory Rate 18 Blood Pressure 109/65 Pulse Oximetry 99 96 Intake/Output Intake/Output: Intake & Output 11/14/20 11/15/20 11/16/20 11/17/20 23:59 23:59 23:59 23:59 Intake Total 3170 1680 1550 640 Output Total 600 965 975 425 Balance 2570 715 575 215 Meds/Results Medications: Active Medications Generic Name Dose Route Start Last Admin Trade Name Freq PRN Reason Stop Dose Admin Acetaminophen 650 mg 11/07/20 15:58 11/08/20 04:22 Acetaminophen 325 Mg Tablet PO 650 mg Q4H PRN Administration Mild Pain (1-3) or Fever Hydrocodone Bitart/Acetaminophen 1 tab 11/07/20 1
[2020-11-17 13:56] LABS: Eosinophil Urine None Seen % (None Seen)
--- NOTE | 2020-11-17 14:23 | PM.IMPN ---
Progress Note: A&P Assessment and Plan (1) SEEMA (acute kidney injury): Code(s): N17.9 - Acute kidney failure, unspecified Status: Acute Assessment and Plan: Cr normal on 11/08 at 0.9 She was continued on her lisinopril and HCTZ but this was last given on 11/08 (held 11/09 due to soft BP then stopped) Cr climbed to 3.0 on 11/10 Consider also dehydration from her nausea and poor oral intake Urine studies pointing toward pre-renal Renal US normal Cr 6.7-->6.9-->7.1 today Nephrology following, recommendations appreciated S/p IV Bumex, with no improvement Plan for renal scan and possible biopsy per nephrology Monitor (2) Cellulitis, leg: Code(s): L03.119 - Cellulitis of unspecified part of limb Status: Acute Assessment and Plan: Small but very deep ulcer LLE Afebrile WBC wnl, LLE Doppler negative for DVT CT scan showing deep skin ulceration with diffuse skin thickening and subcutaneous edema throughout the lower leg consistent with cellulitis POD #6 from debridement WC negative BCx negative S/p Zosyn, vancomycin and clindamycin, Abx adjusted given the renal failure just to Zosyn; Zosyn held on 11/12 given the increasing Cr levels GS following, recommendations appreciated Continue dressing changes (3) Stage 4 very severe COPD by GOLD classification: Code(s): J44.9 - Chronic obstructive pulmonary disease, unspecified Status: Acute Assessment and Plan: Patient with severe COPD No acute exacerbation 2 L chronically Continue Spiriva and Albuterol prn (4) Anemia: Code(s): D64.9 - Anemia, unspecified Status: Acute Assessment and Plan: Hgb 11.4 on admission but has dropped to the 9 range but stable past few days. Probably chronic anemia fro her underlying medical problems Has hx of B12 deficiency as well Iron studies, low, will supplement B12 wnl Transfuse if <7 Monitor (5) Chronic respiratory failure: Code(s): J96.10 - Chronic respiratory failure, unspecified whether with hypoxia or hypercapnia Status: Acute Assessment and Plan: Stable on 2 L O2 nasal cannula Continue to monitor (6) Lung malignancy: Code(s): C34.90 - Malignant neoplasm of unspecified part of unspecified bronchus or lung Status: Acute Assessment and Plan: Hx of non small cell lung cancer left lower lobe treated with radiation treatment December 2016 (7) Benign essential HTN: Code(s): I10 - Essential (primary) hypertension Status: Acute Assessment and Plan: Patient's blood pressure was reviewed on 11/14 Blood pressure stable off her home meds Continue to hold HCTZ and lisinopril (8) Obstructive sleep apnea: Code(s): G47.33 - Obstructive sleep apnea (adult) (pediatric) Status: Acute Assessment and Plan: Patient mostly compliant with NIV at night Continue (9) DVT prophylaxis: Code(s): Z29.9 - Encounter for prophylactic measures, unspecified Status: Acute Assessment and Plan: Lovenox Subjective Date/time seen: 11/17/20 14:23 Pt seen and evaluated; overall no significant change since yesterday; Cr slowly rising Review of Systems Review of Systems: All systems reviewed & are unremarkable except as noted in HPI and below Exam Narrative: Exam Narrative: Exam Narrative: no acute distress; lying in bed General: WD/WN female in NAD Heart: normal S1 and S2; no rub Lungs: clear bilaterally Abdomen: soft, nontender, nondistended, positive bowel sounds Extremities: 1 to 2+ presacral edema. No cyanosis Skin: left LE edema/dressing noted Objective Data Vital Signs Vital Signs: Vital Signs - 24 hr 11/16/20 14:32 11/16/20 20:10 11/17/20 05:46 Temperature 36.4 C 36.2 C L 36.1 C L Pulse Rate 100 101 H 95 Respiratory Rate 16 18 18 Blood Pressure 132/70 134/72 109/65 Pulse Oximetry 97 98 99 11/17/20 08:00 Temperature Pulse Rate Respiratory Rate
[2020-11-17 15:23] VITALS: BP 139/56; PULSE 95; RESP 16; TEMP 36.2; O2SAT 100
[2020-11-17 20:05] VITALS: BP 141/80; PULSE 98; RESP 18; TEMP 36.6; O2SAT 98
[2020-11-17] MEDS: MONTELUKAST SODIUM 10 MG TABLET PO (21:43)
[2020-11-17] MEDS: MICONAZOLE NITRATE 2% VAGINAL CREAM 45 GM TUBE 1 APPFUL VAGINAL (21:45)
[2020-11-18] VITALS (10 sets, daily range): BP systolic 105–154; BP diastolic 64–89; PULSE 85–117; RESP 14–22; TEMP 35.6–37.4; O2SAT 90–100
[2020-11-18] MEDS: ONDANSETRON HCL ODT 4 MG TABLET PO ×3 (03:42→18:01)
[2020-11-18] MEDS: HYDROcodone/acetaminophen (*CRX) 7.5-325 MG TABLET 1 TAB PO ×4 (03:43→22:09)
[2020-11-18] MEDS: FERROUS SULFATE 324 MG TABLET PO (09:28)
[2020-11-18] MEDS: CYANOCOBALAMIN 1,000 MCG TABLET 1000 MCG PO (09:28)
[2020-11-18] MEDS: SILVERGEL (ELTA) 45 ML 1 APPLIC TOPICAL (09:30)
[2020-11-18 10:22] LABS: Basophils Absolute Auto 0.1 K/mm3 (0.0-0.1); Basophils Percent Auto 0.9 % (0.2-1.2); Eosinophils Absolute Auto 0.3 K/mm3 (0-0.3); Eosinophils Percent Auto 3.2 % (0-4.4); Hematocrit 29.9 % (37.0-47.0); Hemoglobin 9.3 g/dL (12.0-15.0); Immature Granulocyte Absolute 0.11 K/mm3 (0.00-0.031); Immature Granulocyte Percent A 1.3 % (0-0.5); Lymphocytes Absolute Auto 0.87 K/mm3 (0.9-3.2); Lymphocytes Percent Auto 10.7 % (18.3-44.2); Mean Corpuscular HGB Conc 31.1 g/dl (32-36); Mean Corpuscular Hemoglobin 28.5 pg (26-34); Mean Corpuscular Volume 91.7 fl (80-100); Mean Platelet Volume 9.1 fl (7.4-10.4); Monocytes Absolute Auto 0.8 K/mm3 (0.1-0.6); Monocytes Percent Auto 9.2 % (2.6-8.5); Neutrophils Absolute Auto 6.1 K/mm3 (1.3-6.7); Neutrophils Percent Auto 74.7 % (45.5-73.1); Platelet Count Result 347 k/mm3 (150-375); Red Blood Count 3.26 M/mm3 (4.2-5.4); Red Cell Distribution Width 12.9 % (11.5-14.5); White Blood Count 8.2 K/mm3 (4.5-10.0)
[2020-11-18 10:32] LABS: Anion Gap 6 mmol/L (8-16); Blood Urea Nitrogen 39 mg/dL (7-17); Calcium 8.9 mg/dL (8.4-10.2); Carbon Dioxide 25 mmol/L (22-30); Chloride 107 mmol/L (98-107); Estimated CRCL calculation 10 ml/min; Estimated Glomerular Filt Rate 6; Glucose 122 mg/dL (65-105); Sodium 138 mmol/L (137-145)
--- NOTE | 2020-11-18 12:14 | PM.PNNEP ---
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 Urine eosinophils are negative serologies: complements okay. ASO okay. somehow other serologies not done. will reorder. Her creatinine up slightly again. Now it is 7.5. renal scan shows uptake without excretion consistent with acute tubular necrosis. I do not think she needs a biopsy after all. The patient's creatinine continues to worsen. She has mild uremic symptoms and some volume overload but she is not short of breath more than her usual. I gave her 2 options. One option would be to continue watching. Any day her creatinine could start coming down again. However she is not making much urine at all and so it might be a few more days before it starts improving. Another option would be to start dialysis. This is justifiable because she does have mild uremic symptoms and her creatinine is very high. We would also have the [place]ringe benefit of enabling her to go home and get dialysis as an outpatient and wait for the kidneys to recover then. The patient says that she does not like surgery. She is afraid of getting the PermCath in. Sometimes she will be put to sleep to have the PermCath put in and she does not like being put to sleep either. We talked at length about these issues. We also talked at length about the process of dialysis, risks benefits and alternatives. Her [id number] was on dialysis so she knows at some about it. After we discussed at length the patient wished to proceed. I told her that if she changed her mind it would be fine to continue watching as an option 1. I consulted the surgeon is to have them come by to discuss the placement of the catheter. I consulted case management to try to get her set up at an outpatient facility. 25 minutes were spent talking with nursing, Dr. Puentes, and patient. (2) Left leg cellulitis: Code(s): L03.116 - Cellulitis of left lower limb Status: Acute Assessment and Plan: on antibiotics wbc okay and afebrile. She is done with antibiotics. (3) COPD (chronic obstructive pulmonary disease): Code(s): J44.9 - Chronic obstructive pulmonary disease, unspecified Status: Chronic Assessment and Plan: appears relatively stable continue supplemental oxygen and inhalers (4) Benign essential HTN: Code(s): I10 - Essential (primary) hypertension Status: Acute Assessment and Plan: systolic in the 120 to 140 range. BP medications on hold Will continue to follow. Subjective Date/time seen: 11/18/20 12:14 Interval history: The patient feels about the same today. Her appetite is not great. She eats a little bit at a time but not much. Intermittent nausea. She is still swollen. Her breathing is stable. Review of Systems Cardiovascular: Cardiovascular: Reports no additional cardiovascular complaints Respiratory: Respiratory: Reports no additional respiratory complaints Gastrointestinal: Gastrointestinal: Reports no additional gastrointestinal complaints Genitourinary: Genitourinary: Reports no additional female genitourinary complaints Exam Narrative: Exam Narrative: General: WD/WN female in N
--- NOTE | 2020-11-18 13:41 | PM.PNGS ---
Progress Note: A&P Assessment and Plan (1) SEEMA (acute kidney injury): Code(s): N17.9 - Acute kidney failure, unspecified Status: Acute Assessment and Plan: Plan to proceed with dialysis (2) Admission for fitting and adjustment of vascular catheter: Code(s): Z45.2 - Encounter for adjustment and management of vascular access device Status: Acute Assessment and Plan: Will place tunneled central venous catheter for dialysis under fluoroscopy this afternoon in the operating room. (3) Venous stasis ulcer: Code(s): I83.009 - Varicose veins of unspecified lower extremity with ulcer of unspecified site; L97.909 - Non-pressure chronic ulcer of unspecified part of unspecified lower leg with unspecified severity Status: Chronic Assessment and Plan: Patient receiving wound care after having debridement by Dr. Gibson a few days ago. Subjective Subjective Date/Time Seen: 11/18/20 13:41 Interval history: Nephrology wishes patient to have tunneled central venous catheter for dialysis which she can continue as an outpatient. Objective Data Vital Signs Vital Signs: Vital Signs - 24 hr 11/17/20 15:23 11/17/20 20:05 11/18/20 08:00 Temperature 36.2 C L 36.6 C Pulse Rate 95 98 Respiratory Rate 16 18 Blood Pressure 139/56 L 141/80 H Pulse Oximetry 100 98 98 11/18/20 09:56 Temperature 35.7 C L Pulse Rate 117 H Respiratory Rate 18 Blood Pressure 105/64 Pulse Oximetry 100 Intake/Output Intake/Output: Intake & Output 11/15/20 11/16/20 11/17/20 11/18/20 23:59 23:59 23:59 23:59 Intake Total 1680 1550 1240 1190 Output Total 013 268 3648 800 Balance 715 575 140 390 Meds/Results Medications: Active Medications Generic Name Dose Route Start Last Admin Trade Name Freq PRN Reason Stop Dose Admin Acetaminophen 650 mg 11/07/20 15:58 11/08/20 04:22 Acetaminophen 325 Mg Tablet PO 650 mg Q4H PRN Administration Mild Pain (1-3) or Fever Hydrocodone Bitart/Acetaminophen 1 tab 11/07/20 15:44 11/18/20 09:29 Hydrocodone/Acetaminophen (*Crx) 7.5-325 Mg Tablet PO 1 tab Q4H PRN Administration pain 4-6 Albuterol 1 puff 11/07/20 15:44 Albuterol Sulfate (*Sp) Aerosol 1 Puff INHALATION Q4H PRN shortness of breath or wheezing Albuterol 5 mg 11/11/20 15:40 Albuterol Sulfate Neb 2.5 Mg/0.5 Ml Inh INHALATION Q6HRT PRN Shortness Of Breath Or Wheezing Calcium Carbonate 200 mg 11/10/20 00:28 11/15/20 17:00 Calcium Carbonate (Tums) 500 Mg (200 Mg Elemental) PO 200 mg Q6H PRN Administration Indigestion Cyanocobalamin 1,000 mcg 11/08/20 09:00 11/18/20 09:28 Cyanocobalamin 1,000 Mcg Tablet PO 1,000 mcg DAILY [facility] Administration Cyclobenzaprine HCl 10 mg 11/07/20 15:44 Cyclobenzaprine Hcl 10 Mg Tablet PO TID PRN muscle spasm Enoxaparin Sodium 30 mg 11/11/20 09:00 11/18/20 13:13 Enoxaparin 30 Mg/0.3 Ml Syringe SUB-Q Not Given DAILY [facility] Ferrous Sulfate 324 mg 11/16/20 08:00 11/18/20 09:28 Ferrous Sulfate 324 Mg Tablet PO 324 mg DAILY@0800 [facility] Administration Miconazole Nitrate 1 appful 11/13/20 21:00 11/17/20 21:45 Miconazole Nitrate 2% Vaginal Cream 45 Gm Tube VAGINAL 1 appful HS [facility] Administration Montelukast Sodium 10 mg 11/07/20 21:00 11/17/20 21:43 Montelukast Sodium 10 Mg Tablet PO 10 mg HS [facility] Administration Morphine Sulfate 2 mg 11/07/20 15:58 11/09/20 11:22 Morphine Sulfate (*Crx) 2 Mg/Ml Inj IV PUSH 2 mg Q4H PRN Administration Pain Rated 7-10 Ondansetron HCl 4 mg 11/16/20 18:05 11/18/20 09:32 Ondansetron Hcl Odt 4 Mg Tablet PO 4 mg Q6H PRN Administration Nausea And Vomiting Silver Nitrate 1 applic 11/10/20 09:00 11/18/20 09:30 Silvergel (Elta) 45 Ml TOPICAL 1 applic DAILY [facility] Administration Tiotropium Nallen 1 cap 11/08/20 09:00 11/18/20 09:28 Tiotropium Nallen 18 Mcg Cap Disku
[2020-11-18 13:46] LABS: Hepatitis B Surface Antigen Negative (Negative)
--- NOTE | 2020-11-18 13:56 | WPDANESEPPF ---
Anes - Initial Pre Proc Eval Procedure: Operation Date: 11/08/20 15:30 Proposed Procedures p Debridement Left Lower Extremity Wound - Horacio Gibson DO Operation Date: 11/18/20 15:00 Proposed Procedures p Insertion Tunnelled Dialysis Catheter - Gurpreet Franklin MD Date/Time: 11/18/20 13:56 Surgeon: Shon Lacey MD Pre Op Diagnosis: cellulitis, venous stasis ulcer LLE Patient Data Age: 59 Gender: F Height: 5 ft 8 in Weight: 115 kg Last Vital Signs Temp 35.7 C L 11/18/20 09:56 Pulse 117 H 11/18/20 09:56 Resp 18 11/18/20 09:56 BP 105/64 11/18/20 09:56 Pulse Ox 100 11/18/20 09:56 Allergies Allergy/AdvReac Type Severity Reaction Status Date / Time cefuroxime Allergy Unknown Fever Verified 11/08/20 14:36 hydromorphone Allergy Unknown Low blood Verified 11/08/20 14:36 pressure ioversol Allergy Unknown Urticaria Verified 11/08/20 14:36 meperidine Allergy Unknown Low blood Verified 11/08/20 14:36 pressure oxycodone Allergy Unknown INCREASED Verified 11/08/20 14:36 PAIN Sulfa (Sulfonamide Allergy Unknown Joint pain Verified 11/08/20 14:36 Antibiotics) sulfanilamide Allergy Unknown Unknown Verified 11/08/20 14:36 levofloxacin [From Levaquin] AdvReac Muscle Pain Verified 11/08/20 14:36 Contrast Media Allergy Intermediate hives Uncoded 11/08/20 14:36 HYDROMORPHONE HCL AdvReac Intermediate Low blood Uncoded 11/08/20 14:36 pressure Home Medications Medication Instructions Recorded Confirmed Type cyclobenzaprine 10 mg tablet 10 mg PO TID PRN #90 tablet 07/13/19 11/07/20 Rx lisinopril 40 mg tablet 40 mg PO DAILY #90 tablet 11/03/19 11/07/20 Rx hydrochlorothiazide 12.5 mg tablet 12.5 mg PO DAILY #90 tablet 01/27/20 11/07/20 Rx meloxicam 15 mg tablet 15 mg PO DAILY PRN #90 tablet 01/27/20 11/07/20 Rx cyanocobalamin (vitamin B-12) 1,000 mcg PO DAILY 07/28/20 11/07/20 History 1,000 mcg tablet vitamins A,C,[id number]-beij-[id number] 14,320 1 cap PO BID 08/10/20 11/07/20 History unit-226 mg-200 unit capsule montelukast 10 mg tablet 10 mg PO .qhs #90 tablet 09/06/20 11/07/20 Rx albuterol sulfate 90 mcg/actuation 1 inh INHALATION Q4H PRN #18 gm 09/23/20 11/07/20 Rx aerosol inhaler tiotropium bromide 18 mcg capsule 1 cap INHALATION DAILY #30 10/05/20 11/07/20 Rx with inhalation device inhalation silver sulfadiazine 1 % topical 1 applic TOPICAL DAILY #100 g 10/12/20 11/07/20 Rx cream hydrocodone 7.5 mg-acetaminophen 1 tablet PO Q4H PRN #180 tablet 10/31/20 11/07/20 Rx 325 mg tablet clindamycin HCl 300 mg capsule 300 mg PO Q8H #30 cap 11/02/20 11/07/20 Rx potassium chloride 10 mEq 10 meq PO BID #180 cap 11/02/20 11/07/20 Rx capsule,extended release fluticasone propion-salmeterol 1 inh INHALATION Q12H 11/07/20 11/07/20 History [Wixela Inhub] furosemide 20 mg PO BID PRN 11/07/20 11/07/20 History Laboratory Tests 11/17/20 11/18/20 11/18/20 13:31 10:10 10:10 WBC 8.2 K/mm3 K/mm3 (4.5-10.0) RBC 3.26 M/mm3 L M/mm3 (4.2-5.4) Hgb 9.3 g/dL L g/dL (12.0-15.0) Hct 29.9 % L % (37.0-47.0) MCV 91.7 fl fl (80-100) MCH 28.5 pg pg (26-34) MCHC 31.1 g/dl L g/dl (32-36) RDW 12.9 % % (11.5-14.5) Plt Count 347 k/mm3 k/mm3 (150-375) MPV 9.1 fl fl (7.4-10.4) Immature Gran % (Auto) 1.3 % H % (0-0.5) Neut % (Auto) 74.7 % H % (45.5-73.1) Lymph % (Auto) 10.7 % L % (18.3-44.2) Reeves % (Auto) 9.2 % H % (2.6-8.5) Eos % (Auto) 3.2 % % (0-4.4) Baso % (Auto) 0.9 % % (0.2-1.2) Lymph # (Auto) 0.87 K/mm3 L K/mm3 (0.9-3.2) Reeves # (Auto) 0.8 K/mm3 H K/mm3 (0.1-0.6) Eos # (Auto) 0.3 K/mm3 K/mm3 (0-0.3) Baso # (Auto) 0.1 K/mm3 K/mm3 (0.0-0.1) Abs Immat Gran (auto) 0.11 K/mm3 H K/mm3 (0.00-0.031) Absolute Neuts (auto) 6.1 K/mm3 K/mm3 (1.3-
[2020-11-18 14:04] LABS: Hepatitis B Surface Anti Res Negative; Hepatitis C Virus Antibody Negative (Negative)
[2020-11-18] MEDS: SODIUM CHLORIDE 0.9% IV 500 ML 30 ML IV CONT (14:18)
--- NOTE | 2020-11-18 14:20 | WPDHPUPDATE1 ---
History and Physical Update Update Date/Time: 11/18/20 14:20 History and Physical has been reviewed, including an updated exam of the patient. There are NO changes in the patient's condition. Risks, benefits, and alternatives have been discussed and questions answered. Patient agrees to proceed with procedure.
--- NOTE | 2020-11-18 14:23 | SUR.PREOP ---
1350; DR TAYLOR NOTIFIED THAT PT STATES SHE HAD BREAKFAST BETWEEN [id number] TODAY, CONSISTING OF BISCUIT, DISLA, CHOCOLATE MILK, PEPSI, ENSURE.
--- NOTE | 2020-11-18 14:27 | SUR.PREOP ---
PT EXTREMELY ANXIOUS, TEARFUL MULTIPLE SKIN TEARS AND BRUISES ON BILAT ARMS AND LEGS
--- NOTE | 2020-11-18 14:39 | PCOTNOTE ---
Attempted OT evaluation, patient out for procedure, will continue to attempt.
[2020-11-18] MEDS: ceFAZolin 2 GM/D5W 50 ML 2 GM/50 ML BAG IVPB (14:40)
[2020-11-18] MEDS: LIDO 1%/EPINEPHRINE 1:100,000 50 ML VIAL 20 ML INFILTRATE (14:59)
--- NOTE | 2020-11-18 15:50 | P.OP_ITS ---
Procedure Note - Detailed Date of procedure: 11/18/20 Pre-op diagnosis: Acute kidney injury, inadequate venous access Acute kidney injury, inadequate venous access Post-op diagnosis: same Procedure performed: Placement DuraFlow tunneled central venous catheter under fluoroscopy, right IJ position Description of procedure: The patient was taken to the operating room placed in a supine position. The head was turned slightly to the left. The right neck and upper chest were prepped and draped. Local anesthetic was infiltrated in the right neck and the right internal jugular vein was cannulated. A guidewire was passed into the superior vena cava. The position of the guidewire was confirmed with C-arm fluoroscopy. I then used a 36 cm dual-lumen DuraFlow catheter and plotted the general positioning and eventual placement of the distal tip of the catheter. Fluoroscopy was used for this as well. I marked on the skin three counter incisions in the right side of the neck. Local anesthetic was infiltrated into each of these counter incisions as well as the exit site of the guidewire. Incision was made at each counter incision and the exit of the guidewire. I then tunneled the DuraFlow catheter from the right lower neck to the upper neck and eventually out the exit site of the guidewire. Each of the counter incisions were used in tunneling the catheter. Under fluoroscopy, I then passed each of the serial dilators over the guidewire. The introducer and sheath were then passed over the guidewire into the SVC under fluoroscopy. I removed the guidewire and the introducer. The Dura Flow cathete r was advanced into the sheath and down into the superior vena cava. The sheath was then removed. I then did some dissection to make a gentle curve in the upper neck for the course of the dura flow catheter. Eventually the catheter looked to be in good position. I checked its position with fluoroscopy. The catheter tip was in the distal SVC/right atrial junction. I checked again the course of the dura flow catheter and there were no kinks. I aspirated and flushed each of the ports multiple times. Each brought back easy return of venous blood. I heparinized each of the ports. A final flush was then done through each of the ports. Caps were placed. The counter incisions were then closed in layers with 4 0 Vicryl interrupted suture. The catheter was sutured to the skin with 3 0 nylon suture. A sterile transparent dressing was placed over the exit site of the catheter. The patient was then taken to recovery in stable condition. Sponge and needle counts were correct x2. Portable chest x- ray showed the catheter to have no kinks and the end of the catheter was in the distal SVC/right atrial junction. Implants: Angiodynamics Duraflow 2 catheter 36 cm length Anesthesia: MAC and local (0.5% Marcaine with epinephrine) Surgeon: Gurpreet Franklin MD Estimated blood loss (mL): 5 Drains: No Packing: No Pathology: none sent Complications: None Condition: stable Disposition: PACU Findings: Catheter tip in distal SVC right atrial junction, no kinks in the catheter course
--- NOTE | 2020-11-18 16:05 | PM.IMPN ---
Progress Note: A&P Assessment and Plan (1) SEEMA (acute kidney injury): Code(s): N17.9 - Acute kidney failure, unspecified Status: Acute Assessment and Plan: Cr normal on 11/08 at 0.9 She was continued on her lisinopril and HCTZ but this was last given on 11/08 (held 11/09 due to soft BP then stopped) Cr climbed to 3.0 on 11/10 Consider also dehydration from her nausea and poor oral intake Urine studies pointing toward pre-renal Renal US normal Cr 6.7-->6.9-->7.1-->7.5 today Nephrology following, recommendations appreciated S/p IV Bumex, with no improvement Renal scan reviewed and discussed with Dr. Morocho Plan for temporary HD Monitor (2) Cellulitis, leg: Code(s): L03.119 - Cellulitis of unspecified part of limb Status: Acute Assessment and Plan: Small but very deep ulcer LLE Afebrile WBC wnl, LLE Doppler negative for DVT CT scan showing deep skin ulceration with diffuse skin thickening and subcutaneous edema throughout the lower leg consistent with cellulitis POD #6 from debridement WC negative BCx negative S/p Zosyn, vancomycin and clindamycin, Abx adjusted given the renal failure just to Zosyn; Zosyn held on 11/12 given the increasing Cr levels GS following, recommendations appreciated Continue dressing changes (3) Stage 4 very severe COPD by GOLD classification: Code(s): J44.9 - Chronic obstructive pulmonary disease, unspecified Status: Acute Assessment and Plan: Patient with severe COPD No acute exacerbation 2 L chronically Continue Spiriva and Albuterol prn (4) Anemia: Code(s): D64.9 - Anemia, unspecified Status: Acute Assessment and Plan: Hgb 11.4 on admission but has dropped to the 9 range but stable past few days. Probably chronic anemia from her underlying medical problems Has hx of B12 deficiency as well Iron studies, low, will supplement B12 wnl Transfuse if <7 Monitor (5) Chronic respiratory failure: Code(s): J96.10 - Chronic respiratory failure, unspecified whether with hypoxia or hypercapnia Status: Acute Assessment and Plan: Stable on 2 L O2 nasal cannula Continue to monitor (6) Lung malignancy: Code(s): C34.90 - Malignant neoplasm of unspecified part of unspecified bronchus or lung Status: Acute Assessment and Plan: Hx of non small cell lung cancer left lower lobe treated with radiation treatment December 2016 (7) Benign essential HTN: Code(s): I10 - Essential (primary) hypertension Status: Acute Assessment and Plan: Patient's blood pressure was reviewed on 11/14 Blood pressure stable off her home meds Continue to hold HCTZ and lisinopril (8) Obstructive sleep apnea: Code(s): G47.33 - Obstructive sleep apnea (adult) (pediatric) Status: Acute Assessment and Plan: Patient mostly compliant with NIV at night Continue (9) DVT prophylaxis: Code(s): Z29.9 - Encounter for prophylactic measures, unspecified Status: Acute Assessment and Plan: Lovenox (10) Physical deconditioning: Code(s): R53.81 - Other malaise Status: Acute Assessment and Plan: 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 No cyanosis Skin: left LE edema/dressing noted Objective Data Vital Signs Vital Signs: Vital Signs - 24 hr 11/17/20 20:05 11/18/20 08:00 11/18/20 09:56 Temperature 36.6 C 35.7 C L Pulse Rate 98 117 H Respirator
--- NOTE | 2020-11-18 18:14 | PC.NURSE ---
Per dieticians recommendations the patient would most benefit from staying on a regular diet. Paulette the hospitalist was in agreement when conversation was had. Patient placed back on regular diet after coming back from surgery.
[2020-11-18] MEDS: MONTELUKAST SODIUM 10 MG TABLET PO (22:09)
[2020-11-18] MEDS: MICONAZOLE NITRATE 2% VAGINAL CREAM 45 GM TUBE 1 APPFUL VAGINAL (22:15)
[2020-11-19] VITALS: BP 123/73; PULSE 91; RESP 18; TEMP 35.9; O2SAT 100
[2020-11-19] MEDS: HYDROcodone/acetaminophen (*CRX) 7.5-325 MG TABLET 1 TAB PO ×4 (02:08→21:17)
[2020-11-19 04:00] VITALS: BP 136/72; PULSE 89; RESP 18; TEMP 36; O2SAT 100
[2020-11-19 06:03] LABS: Basophils Absolute Auto 0.1 K/mm3 (0.0-0.1); Basophils Percent Auto 0.8 % (0.2-1.2); Eosinophils Absolute Auto 0.2 K/mm3 (0-0.3); Eosinophils Percent Auto 2.1 % (0-4.4); Hematocrit 29.2 % (37.0-47.0); Hemoglobin 9.2 g/dL (12.0-15.0); Immature Granulocyte Absolute 0.07 K/mm3 (0.00-0.031); Immature Granulocyte Percent A 0.8 % (0-0.5); Lymphocytes Percent Auto 12.3 % (18.3-44.2); Mean Corpuscular HGB Conc 31.5 g/dl (32-36); Mean Corpuscular Hemoglobin 29.2 pg (26-34); Mean Corpuscular Volume 92.7 fl (80-100); Mean Platelet Volume 9.1 fl (7.4-10.4); Monocytes Percent Auto 11.1 % (2.6-8.5); Neutrophils Absolute Auto 6.5 K/mm3 (1.3-6.7); Neutrophils Percent Auto 72.9 % (45.5-73.1); Platelet Count Result 343 k/mm3 (150-375); Red Blood Count 3.15 M/mm3 (4.2-5.4); Red Cell Distribution Width 12.8 % (11.5-14.5); White Blood Count 8.9 K/mm3 (4.5-10.0)
[2020-11-19 06:22] LABS: Albumin Level 3.2 g/dL (3.5-5.1); Anion Gap 8 mmol/L (8-16); Blood Urea Nitrogen 41 mg/dL (7-17); Calcium 9.1 mg/dL (8.4-10.2); Carbon Dioxide 23 mmol/L (22-30); Chloride 109 mmol/L (98-107); Estimated CRCL calculation 10 ml/min; Estimated Glomerular Filt Rate 6; Glucose 98 mg/dL (65-105); Phosphorus 5.8 mg/dL (2.5-4.5); Potassium 3.9 mmol/L (3.4-5.0); Sodium 140 mmol/L (137-145)
[2020-11-19] MEDS: ONDANSETRON HCL ODT 4 MG TABLET PO ×3 (06:45→21:21)
[2020-11-19] MEDS: FERROUS SULFATE 324 MG TABLET PO (08:57)
[2020-11-19] MEDS: ENOXAPARIN 30 MG/0.3 ML SYRINGE SUB-Q (08:58)
[2020-11-19] MEDS: CYANOCOBALAMIN 1,000 MCG TABLET 1000 MCG PO (08:58)
[2020-11-19] MEDS: SILVERGEL (ELTA) 45 ML 1 APPLIC TOPICAL (08:59)
[2020-11-19 09:10] VITALS: O2SAT 98
--- NOTE | 2020-11-19 10:14 | PM.PNNEP ---
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 Urine eosinophils are negative serologies: complements okay. ASO okay. somehow other serologies not done. will reorder. Her creatinine came down a tiny bit to 7.2. renal scan shows uptake without excretion consistent with acute tubular necrosis. Her creatinine came down a little bit. She is fairly uncomfortable with her shortness of breath. I will go ahead and do a dry ultrafiltration. This will not interfere with recovery of her kidney function or the monitoring there of since we will be taking creatinine off. Will take some fluid off. I will also give her some diuretics to start this evening to help remove fluid. Perhaps she will respond to the diuretics this time. (2) Left leg cellulitis: Code(s): L03.116 - Cellulitis of left lower limb Status: Acute Assessment and Plan: on antibiotics wbc okay and afebrile. She is done with antibiotics. (3) COPD (chronic obstructive pulmonary disease): Code(s): J44.9 - Chronic obstructive pulmonary disease, unspecified Status: Chronic Assessment and Plan: appears relatively stable continue supplemental oxygen and inhalers (4) Benign essential HTN: Code(s): I10 - Essential (primary) hypertension Status: Acute Assessment and Plan: systolic in the 120 to 140 range. BP medications on hold Will continue to follow. Subjective Date/time seen: 11/19/20 10:14 Interval history: The patient feels about the same today. Got up to take a shower. She is short of breath with any movement. She is going to have some breakfast in a few minutes. Appetite is not the greatest. Review of Systems Cardiovascular: Cardiovascular: Reports no additional cardiovascular complaints Respiratory: Respiratory: Reports no additional respiratory complaints Gastrointestinal: Gastrointestinal: Reports no additional gastrointestinal complaints Genitourinary: Genitourinary: Reports no additional female genitourinary complaints Exam Narrative: Exam Narrative: General: WD/WN female in NAD Heart: normal S1 and S2; no rub or gallop Lungs: Decreased breath sounds at the bases Abdomen: soft, nontender, nondistended, positive bowel sounds Extremities: 1 to 2+ presacral edema. No cyanosis Skin: left LE edema/dressing Over wounds. Objective Data Vital Signs Vital Signs: Vital Signs - 24 hr 11/18/20 14:25 11/18/20 15:50 11/18/20 16:05 Temperature 37.4 C 36.6 C Pulse Rate 117 H 92 85 Respiratory Rate 22 H 14 14 Blood Pressure 141/87 H 151/89 H 154/88 H Pulse Oximetry 98 97 98 11/18/20 16:40 11/18/20 16:55 11/18/20 17:23 Temperature 35.7 C L 35.6 C L 36.2 C L Pulse Rate 92 93 91 Respiratory Rate 14 16 16 Blood Pressure 140/80 121/82 126/84 Pulse Oximetry 90 93 95 11/18/20 18:25 11/18/20 20:00 11/19/20 00:00 Temperature 35.6 C L 36.0 C L 35.9 C L Pulse Rate 93 96 91 Respiratory Rate 18 18 18 Blood Pressure 130/72 145/84 H 123/73 Pulse Oximetry 100 99 100 11/19/20 04:00 11/19/20 09:10 Temperature 36.0 C L Pulse Rate 89 Respiratory Rate 18 Blood Pressure 136/72 Pulse Oximetry 100 98 Intake/Output
[2020-11-19 10:55] VITALS: BP 147/87; PULSE 70; RESP 14; TEMP 35.8; O2SAT 100
[2020-11-19] MEDS: CALCIUM CARBONATE (TUMS) 500 MG (200 MG ELEMENTAL) PO (12:02)
--- NOTE | 2020-11-19 12:37 | PM.IMPN ---
Progress Note: A&P Assessment and Plan (1) SEEMA (acute kidney injury): Code(s): N17.9 - Acute kidney failure, unspecified Status: Acute Assessment and Plan: Cr normal on 11/08 at 0.9 She was continued on her lisinopril and HCTZ but this was last given on 11/08 (held 11/09 due to soft BP then stopped) Cr climbed to 3.0 on 11/10 Consider also dehydration from her nausea and poor oral intake Urine studies pointing toward pre-renal Renal US normal Cr 6.7-->6.9-->7.1-->7.5-->7.2 today Nephrology following, recommendations appreciated S/p IV Bumex, with no improvement Renal scan reviewed and discussed with Dr. Morocho Plan for temporary HD Monitor (2) Cellulitis, leg: Code(s): L03.119 - Cellulitis of unspecified part of limb Status: Acute Assessment and Plan: Small but very deep ulcer LLE Afebrile WBC wnl, LLE Doppler negative for DVT CT scan showing deep skin ulceration with diffuse skin thickening and subcutaneous edema throughout the lower leg consistent with cellulitis POD #6 from debridement WC negative BCx negative S/p Zosyn, vancomycin and clindamycin, Abx adjusted given the renal failure just to Zosyn; Zosyn held on 11/12 given the increasing Cr levels GS following, recommendations appreciated Continue dressing changes (3) Stage 4 very severe COPD by GOLD classification: Code(s): J44.9 - Chronic obstructive pulmonary disease, unspecified Status: Acute Assessment and Plan: Patient with severe COPD No acute exacerbation 2 L chronically Continue Spiriva and Albuterol prn (4) Anemia: Code(s): D64.9 - Anemia, unspecified Status: Acute Assessment and Plan: Hgb 11.4 on admission but has dropped to the 9 range but stable past few days. Probably chronic anemia from her underlying medical problems Has hx of B12 deficiency as well Iron studies, low, will supplement B12 wnl Transfuse if <7 Monitor (5) Chronic respiratory failure: Code(s): J96.10 - Chronic respiratory failure, unspecified whether with hypoxia or hypercapnia Status: Acute Assessment and Plan: Stable on 2 L O2 nasal cannula Continue to monitor (6) Lung malignancy: Code(s): C34.90 - Malignant neoplasm of unspecified part of unspecified bronchus or lung Status: Acute Assessment and Plan: Hx of non small cell lung cancer left lower lobe treated with radiation treatment December 2016 (7) Benign essential HTN: Code(s): I10 - Essential (primary) hypertension Status: Acute Assessment and Plan: Patient's blood pressure was reviewed on 11/14 Blood pressure stable off her home meds Continue to hold HCTZ and lisinopril (8) Obstructive sleep apnea: Code(s): G47.33 - Obstructive sleep apnea (adult) (pediatric) Status: Acute Assessment and Plan: Patient mostly compliant with NIV at night Continue (9) DVT prophylaxis: Code(s): Z29.9 - Encounter for prophylactic measures, unspecified Status: Acute Assessment and Plan: Lovenox (10) Physical deconditioning: Code(s): R53.81 - Other malaise Status: Acute Assessment and Plan: 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 No cyanosis Skin: left LE edema/dressing noted Objective Data Vital Signs Vital Signs: Vital Signs - 24 hr 11/18/20 14:25 11/18/20 15:50 11/18/20 16:0
[2020-11-19 14:00] VITALS: BP 119/69; PULSE 105; RESP 14; TEMP 35.7; O2SAT 99
--- NOTE | 2020-11-19 16:24 | PC.NURSE ---
Patient to dialysis per bed. Report to SUZANNE Berg.
[2020-11-19 20:03] VITALS: BP 148/68; PULSE 118; RESP 18; TEMP 37.3; O2SAT 94
--- NOTE | 2020-11-19 20:03 | PC.NURSE ---
Addendum entered by Fabby Puentes RN 11/19/20 20:10: [facility] HD flow sheet in chart Original Note: 1950: pt return to floor from HD reconnected to O2 and tolieted. DTR in room awaiting pt with home meal. Total fluids removed 2000 ml. Post tx VS: 98.7-102-158/79-20-98.
[2020-11-19] MEDS: MICONAZOLE NITRATE 2% VAGINAL CREAM 45 GM TUBE 1 APPFUL VAGINAL (21:17)
[2020-11-19] MEDS: MONTELUKAST SODIUM 10 MG TABLET PO (21:17)
[2020-11-20] MEDS: HYDROcodone/acetaminophen (*CRX) 7.5-325 MG TABLET 1 TAB PO ×5 (02:16→20:52)
[2020-11-20 06:19] VITALS: BP 128/55; PULSE 113; RESP 18; TEMP 36.4; O2SAT 98
[2020-11-20 06:23] LABS: Basophils Absolute Auto 0.1 K/mm3 (0.0-0.1); Basophils Percent Auto 0.7 % (0.2-1.2); Eosinophils Absolute Auto 0.3 K/mm3 (0-0.3); Eosinophils Percent Auto 3.4 % (0-4.4); Hematocrit 28.1 % (37.0-47.0); Immature Granulocyte Absolute 0.12 K/mm3 (0.00-0.031); Immature Granulocyte Percent A 1.4 % (0-0.5); Lymphocytes Absolute Auto 1.33 K/mm3 (0.9-3.2); Mean Corpuscular Hemoglobin 28.9 pg (26-34); Mean Corpuscular Volume 90.4 fl (80-100); Mean Platelet Volume 9.4 fl (7.4-10.4); Monocytes Absolute Auto 0.8 K/mm3 (0.1-0.6); Monocytes Percent Auto 9.2 % (2.6-8.5); Neutrophils Absolute Auto 5.8 K/mm3 (1.3-6.7); Neutrophils Percent Auto 69.3 % (45.5-73.1); Platelet Count Result 401 k/mm3 (150-375); Red Blood Count 3.11 M/mm3 (4.2-5.4); Red Cell Distribution Width 13.1 % (11.5-14.5); White Blood Count 8.3 K/mm3 (4.5-10.0)
[2020-11-20 06:42] LABS: Potassium 4.2 mmol/L (3.4-5.0)
[2020-11-20] MEDS: ONDANSETRON HCL ODT 4 MG TABLET PO ×3 (06:45→20:52)
[2020-11-20 06:46] LABS: Albumin Level 3.2 g/dL (3.5-5.1); Anion Gap 6 mmol/L (8-16); Blood Urea Nitrogen 41 mg/dL (7-17); Calcium 9.2 mg/dL (8.4-10.2); Carbon Dioxide 25 mmol/L (22-30); Chloride 110 mmol/L (98-107); Estimated CRCL calculation 12 ml/min; Estimated Glomerular Filt Rate 6; Glucose 96 mg/dL (65-105); Phosphorus 5.6 mg/dL (2.5-4.5); Sodium 141 mmol/L (137-145)
[2020-11-20] MEDS: ENOXAPARIN 30 MG/0.3 ML SYRINGE SUB-Q (08:09)
[2020-11-20] MEDS: FERROUS SULFATE 324 MG TABLET PO (08:09)
[2020-11-20] MEDS: CYANOCOBALAMIN 1,000 MCG TABLET 1000 MCG PO (08:09)
[2020-11-20 08:10] VITALS: O2SAT 93
[2020-11-20] MEDS: SILVERGEL (ELTA) 45 ML 1 APPLIC TOPICAL (08:10)
--- NOTE | 2020-11-20 08:27 | PM.IMPN ---
Progress Note: A&P Assessment and Plan (1) SEEMA (acute kidney injury): Code(s): N17.9 - Acute kidney failure, unspecified Status: Acute Assessment and Plan: Cr normal on 11/08 at 0.9 She was continued on her lisinopril and HCTZ but this was last given on 11/08 (held 11/09 due to soft BP then stopped) Cr climbed to 3.0 on 11/10 Consider also dehydration from her nausea and poor oral intake Urine studies pointing toward pre-renal Renal US normal Cr 6.7-->6.9-->7.1-->7.5-->7.2 today Nephrology following, recommendations appreciated S/p IV Bumex, with no improvement Renal scan reviewed and discussed with Dr. Morocho Plan for temporary HD Monitor Will repeat BMP tomorrow, patient creatinine is stable at present time. (2) Cellulitis, leg: Code(s): L03.119 - Cellulitis of unspecified part of limb Status: Acute Assessment and Plan: Small but very deep ulcer LLE Afebrile WBC wnl, LLE Doppler negative for DVT CT scan showing deep skin ulceration with diffuse skin thickening and subcutaneous edema throughout the lower leg consistent with cellulitis POD #6 from debridement WC negative BCx negative S/p Zosyn, vancomycin and clindamycin, Abx adjusted given the renal failure just to Zosyn; Zosyn held on 11/12 given the increasing Cr levels GS following, recommendations appreciated Continue dressing changes (3) Stage 4 very severe COPD by GOLD classification: Code(s): J44.9 - Chronic obstructive pulmonary disease, unspecified Status: Acute Assessment and Plan: Patient with severe COPD No acute exacerbation 2 L chronically Continue Spiriva and Albuterol prn (4) Anemia: Code(s): D64.9 - Anemia, unspecified Status: Acute Assessment and Plan: Hgb 11.4 on admission but has dropped to the 9 range but stable past few days. Probably chronic anemia from her underlying medical problems Has hx of B12 deficiency as well Iron studies, low, will supplement B12 wnl Transfuse if <7 Monitor (5) Chronic respiratory failure: Code(s): J96.10 - Chronic respiratory failure, unspecified whether with hypoxia or hypercapnia Status: Acute Assessment and Plan: Stable on 2 L O2 nasal cannula Continue to monitor (6) Lung malignancy: Code(s): C34.90 - Malignant neoplasm of unspecified part of unspecified bronchus or lung Status: Acute Assessment and Plan: Hx of non small cell lung cancer left lower lobe treated with radiation treatment December 2016 (7) Benign essential HTN: Code(s): I10 - Essential (primary) hypertension Status: Acute Assessment and Plan: Patient's blood pressure was reviewed on 11/14 Blood pressure stable off her home meds Continue to hold HCTZ and lisinopril (8) Obstructive sleep apnea: Code(s): G47.33 - Obstructive sleep apnea (adult) (pediatric) Status: Acute Assessment and Plan: Patient mostly compliant with NIV at night Continue (9) DVT prophylaxis: Code(s): Z29.9 - Encounter for prophylactic measures, unspecified Status: Acute Assessment and Plan: Lovenox (10) Physical deconditioning: Code(s): R53.81 - Other malaise Status: Acute Assessment and Plan: 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 Will increase activity. Will continue current plan of care and treatment. Will discuss with surgery per discharge plan. Subjective Date/time seen: 11/20/20 08:27 Interval history: Patient was seen during the morning rounds today. Patient is feeling slightly better today. No shortness of breath or chest pain. Pain in the left leg is better. Decrease in swelling of the lower extremities. Were stable. Review of Systems Review of Systems: All systems reviewed & are unremarkable except as noted in HPI and below Exam Narrative: Exam Narrative: Ryann
[2020-11-20] MEDS: BUMETANIDE INJ 2.5 MG/10 ML VIAL 2 MG IV PUSH ×2 (09:25→16:29)
--- NOTE | 2020-11-20 09:31 | PM.PNNEP ---
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 Urine eosinophils are negative serologies: complements okay. ASO okay. somehow other serologies not done. will reorder. Her creatinine came down a tiny bit to 7.2. renal scan shows uptake without excretion consistent with acute tubular necrosis. Urine output is just okay. Only 550cc yesterday. Will give Bumetanide twice a day IV. I will add metolazone as well. See if we can get more urine production. Will repeat the creatinine tomorrow and see where ER. If the creatinine falls from today to tomorrow then we could hold off on dialysis for a day. Otherwise we will treat with dialysis. If so we can get case management to apply for outpatient dialysis. (2) Left leg cellulitis: Code(s): L03.116 - Cellulitis of left lower limb Status: Acute Assessment and Plan: off antibiotics wbc okay and afebrile. She is done with antibiotics. (3) COPD (chronic obstructive pulmonary disease): Code(s): J44.9 - Chronic obstructive pulmonary disease, unspecified Status: Chronic Assessment and Plan: appears relatively stable continue supplemental oxygen and inhalers (4) Benign essential HTN: Code(s): I10 - Essential (primary) hypertension Status: Acute Assessment and Plan: systolic in the 120 to 140 range. Blood pressure did well in dialysis. Will continue to follow. Subjective Date/time seen: 11/20/20 09:31 Interval history: The patient feels a little better today. Swelling is down a little bit. She did pretty well in dialysis physically yesterday. Her blood pressure was stable and 2L were removed. However she was very anxious during the whole treatment. We talked about it today. She said the worse part about it was that she had to urinate and she had to use the bedpan. Although it is good news that she is making more urine that is very inconvenient for her. She was also anxious because of the on familiarity with dialysis. But it did not really make her feel bad itself, she understands. Sitting up in a chair today. Review of Systems Cardiovascular: Cardiovascular: Reports no additional cardiovascular complaints Respiratory: Respiratory: Reports no additional respiratory complaints Gastrointestinal: Gastrointestinal: Reports no additional gastrointestinal complaints Genitourinary: Genitourinary: Reports no additional female genitourinary complaints Exam Narrative: Exam Narrative: General: WD/WN female in NAD Heart: normal S1 and S2; no rub or gallop Lungs: Decreased breath sounds at the bases bilaterally Abdomen: soft, nontender, nondistended, positive bowel sounds Extremities: 1 to 2+ presacral edema. Skin: left LE edema/dressings Objective Data Vital Signs Vital Signs: Vital Signs - 24 hr 11/19/20 10:55 11/19/20 14:00 11/19/20 20:03 Temperature 35.8 C L 35.7 C L 37.3 C Pulse Rate 70 105 H 118 H Respiratory Rate 14 14 18 Blood Pressure 147/87 H 119/69 148/68 H Pulse Oximetry 100 99 94 11/20/20 06:19 Temperature 36.4 C L Pulse Rate 113 H Respiratory Rate 18 Blood Pressure 128/55 L Pulse Oximetry 98 Intake/Output Intake/Outp
[2020-11-20 10:16] VITALS: O2SAT 93
[2020-11-20] MEDS: CALCIUM CARBONATE (TUMS) 500 MG (200 MG ELEMENTAL) PO (11:27)
[2020-11-20 15:01] VITALS: BP 134/76; PULSE 102; RESP 18; TEMP 36.4; O2SAT 99
[2020-11-20 19:43] VITALS: BP 126/64; PULSE 109; RESP 18; TEMP 36.7; O2SAT 97
[2020-11-20] MEDS: MICONAZOLE NITRATE 2% VAGINAL CREAM 45 GM TUBE 1 APPFUL VAGINAL (20:55)
[2020-11-20] MEDS: MONTELUKAST SODIUM 10 MG TABLET PO (20:55)
[2020-11-21] MEDS: HYDROcodone/acetaminophen (*CRX) 7.5-325 MG TABLET 1 TAB PO ×5 (02:11→20:32)
[2020-11-21 05:54] LABS: Basophils Absolute Auto 0.1 K/mm3 (0.0-0.1); Basophils Percent Auto 0.7 % (0.2-1.2); Eosinophils Absolute Auto 0.3 K/mm3 (0-0.3); Eosinophils Percent Auto 3.2 % (0-4.4); Hematocrit 27.5 % (37.0-47.0); Hemoglobin 8.7 g/dL (12.0-15.0); Immature Granulocyte Absolute 0.13 K/mm3 (0.00-0.031); Immature Granulocyte Percent A 1.4 % (0-0.5); Lymphocytes Absolute Auto 1.43 K/mm3 (0.9-3.2); Lymphocytes Percent Auto 14.9 % (18.3-44.2); Mean Corpuscular HGB Conc 31.6 g/dl (32-36); Mean Corpuscular Hemoglobin 28.5 pg (26-34); Mean Corpuscular Volume 90.2 fl (80-100); Mean Platelet Volume 9.3 fl (7.4-10.4); Monocytes Absolute Auto 0.8 K/mm3 (0.1-0.6); Monocytes Percent Auto 8.4 % (2.6-8.5); Neutrophils Absolute Auto 6.9 K/mm3 (1.3-6.7); Neutrophils Percent Auto 71.4 % (45.5-73.1); Platelet Count Result 393 k/mm3 (150-375); Red Blood Count 3.05 M/mm3 (4.2-5.4); Red Cell Distribution Width 12.8 % (11.5-14.5); White Blood Count 9.6 K/mm3 (4.5-10.0)
[2020-11-21 06:06] VITALS: BP 114/60; PULSE 97; RESP 18; TEMP 36.3; O2SAT 98
[2020-11-21 06:06] LABS: Anion Gap 5 mmol/L (8-16); Blood Urea Nitrogen 41 mg/dL (7-17); Calcium 8.9 mg/dL (8.4-10.2); Carbon Dioxide 25 mmol/L (22-30); Chloride 109 mmol/L (98-107); Estimated CRCL calculation 13 ml/min; Estimated Glomerular Filt Rate 7; Glucose 94 mg/dL (65-105); Potassium 3.9 mmol/L (3.4-5.0); Sodium 139 mmol/L (137-145)
[2020-11-21] MEDS: ONDANSETRON HCL ODT 4 MG TABLET PO ×3 (07:19→21:30)
[2020-11-21 08:13] VITALS: O2SAT 97
[2020-11-21] MEDS: BUMETANIDE INJ 2.5 MG/10 ML VIAL 2 MG IV PUSH ×2 (08:29→17:48)
[2020-11-21] MEDS: ENOXAPARIN 30 MG/0.3 ML SYRINGE SUB-Q (08:29)
[2020-11-21] MEDS: CYANOCOBALAMIN 1,000 MCG TABLET 1000 MCG PO (08:29)
[2020-11-21] MEDS: FERROUS SULFATE 324 MG TABLET PO (08:29)
[2020-11-21] MEDS: SILVERGEL (ELTA) 45 ML 1 APPLIC TOPICAL (08:30)
[2020-11-21] MEDS: CALCIUM CARBONATE (TUMS) 500 MG (200 MG ELEMENTAL) PO (11:00)
[2020-11-21 11:20] LABS: Kappa\\Lambda Light Chains 1.06 (0.26-1.65); Lambda Light Chain 33.9 mg/L (5.7-26.3)
[2020-11-21 14:47] VITALS: BP 137/62; PULSE 102; RESP 18; TEMP 35.9; O2SAT 99
--- NOTE | 2020-11-21 15:26 | PM.IMPN ---
Progress Note: A&P Assessment and Plan (1) SEEMA (acute kidney injury): Code(s): N17.9 - Acute kidney failure, unspecified Status: Acute Assessment and Plan: Nephrology consulted and appreciate input. [place] to be multifactorial including prerenal factors, concurrent use of Shreyas inhibitor and diuretics along with NSAIDs, relative hypotension, infection and need for use of antibiotics. Renal ultrasound without obstruction. Additional workup also negative. Creatinine is better at 5.80 today. Remains on IV Bumex. Holding off on dialysis for now. Will continue to monitor kidney function. (2) Left leg cellulitis: Code(s): L03.116 - Cellulitis of left lower limb Status: Acute Assessment and Plan: Appreciate help from General surgery. Venous Doppler left lower extremity negative for DVT. CT scan did show deep skin ulceration with diffuse skin thickening and subcutaneous edema throughout the lower leg consistent with cellulitis. Had debridement on 11/08/2020. POD# 13. Completed treatment with antibiotics. WBC remains normal. Continue local wound care as needed. (3) Physical deconditioning: Code(s): R53.81 - Other malaise Status: Acute Assessment and Plan: Most likely multifactorial. Will continue PT/OT. (4) COPD (chronic obstructive pulmonary disease): Qualifiers: COPD type: unspecified COPD Qualified Code(s): J44.9 - Chronic obstructive pulmonary disease, unspecified Code(s): J44.9 - Chronic obstructive pulmonary disease, unspecified Status: Chronic Assessment and Plan: No exacerbation. Continue Spiriva and Singulair. Remains on home oxygen of 2 L. Will monitor. (5) Chronic respiratory failure: Qualifiers: Respiratory failure complication: hypoxia Qualified Code(s): J96.11 - Chronic respiratory failure with hypoxia Code(s): J96.10 - Chronic respiratory failure, unspecified whether with hypoxia or hypercapnia Status: Acute Assessment and Plan: Remains on home oxygen of 2 L as noted above. Will monitor. (6) Anemia: Qualifiers: Anemia type: unspecified type Qualified Code(s): D64.9 - Anemia, unspecified Code(s): D64.9 - Anemia, unspecified Status: Acute Assessment and Plan: Hemoglobin stable at 8.7 today. Will continue vitamin B12 and iron. Continue to monitor. Only transfuse if needed. (7) Benign essential HTN: Code(s): I10 - Essential (primary) hypertension Status: Acute Assessment and Plan: Blood pressure reviewed on 11/21/2020. Presently stable. Will continue to monitor with IV Bumex. (8) DVT prophylaxis: Code(s): Z29.9 - Encounter for prophylactic measures, unspecified Status: Acute Assessment and Plan: Lovenox. Time Spent With Patient Time with patient: 15 - 25 minutes Subjective Date/time seen: 11/21/20 15:26 Interval history: Date of Service: 11/21/2020. SEEMA and left lower extremity cellulitis. Patient reports she still has shortness of breath but always has chronically from her COPD. No chest pain or chest pressure. No cough. Does still have swelling in her legs. Hoping her kidney function will recover. Does report nausea but no vomiting. No abdominal pain. No headache or dizziness. Does try to sit up in the chair as much as possible. Review of Systems Constitutional: Constitutional: Denies fever(s) ENT: Denies sore throat Cardiovascular: Cardiovascular: Denies chest pain and Reports leg edema Respiratory: Respiratory: Denies cough and Reports dyspnea Gastrointestinal: Gastrointestinal: Denies abdominal pain, Reports nausea and Denies vomiting Musculoskeletal: Musculoskeletal: Reports no additional musculoskeletal complaints Integumentary/Breasts: Skin/Breast: Denies rash Neurologic: Denies dizziness and Denies headache(s) Psychiatric: Psychiatric: Reports no additional psychiatric complaints Exa
--- NOTE | 2020-11-21 15:31 | PM.PNNEP ---
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 - infection (leg cellulitis) - off antibiotics (drugs themselves versus possible acute interstitial nephritis) -- however, no peripheral eosinophilia and urine eosinophils negative evaluation to date: - renal ultrasound without obstruction - urine electrolytes are non pre-renal - urine eosinophils are negative - complements and ASO okay; other serologies pending - renall scan shows uptake without excretion consistent with acute tubular necrosis creatinine has came down a bit in the last few days better urine output in the last few days (although is receiving IV bumex) hold dialysis today (2) Left leg cellulitis: Code(s): L03.116 - Cellulitis of left lower limb Status: Acute Assessment and Plan: completed course of antibiotics WBC stable and no fevers local wound care (3) COPD (chronic obstructive pulmonary disease): Code(s): J44.9 - Chronic obstructive pulmonary disease, unspecified Status: Chronic Assessment and Plan: appears relatively stable continue supplemental oxygen and inhalers (4) Benign essential HTN: Code(s): I10 - Essential (primary) hypertension Status: Acute Assessment and Plan: systolic in the 120 to 140 range. follow trend of hemodynamics Will continue to follow. Subjective Date/time seen: 11/21/20 15:31 Chart reviewed since last seen -- good urine output with IV bumex and creatinine has improved as well; no apparent complaints voiced at this time; no events/issues overnight or earlier this AM. Exam Narrative: Exam Narrative: General: WD/WN female in NAD Heart: normal S1 and S2; no rub or gallop Lungs: decreased breath sounds at bases Abdomen: soft, nontender, nondistended, positive bowel sounds Extremities: 1+ edema. Skin: left LE edema/dressings Objective Data Vital Signs Vital Signs: Vital Signs Temp Pulse Resp BP Pulse Ox 11/21/20 14:47 35.9 C L 102 H 18 137/62 99 11/21/20 08:13 97 11/21/20 06:06 36.3 C L 97 18 114/60 98 11/20/20 19:43 36.7 C 109 H 18 126/64 97 Intake/Output Intake/Output: Intake & Output 11/18/20 11/19/20 11/20/20 11/21/20 23:59 23:59 23:59 23:59 Intake Total 1630 1368 1230 460 Output Total 8485 990 7556 1450 Balance 380 818 1020 990 Meds/Results Medications: Active Medications Generic Name Dose Route Start Last Admin Trade Name Freq PRN Reason Stop Dose Admin Acetaminophen 650 mg 11/07/20 15:58 11/08/20 04:22 Acetaminophen 325 Mg Tablet PO 650 mg Q4H PRN Administration Mild Pain (1-3) or Fever Hydrocodone Bitart/Acetaminophen 1 tab 11/07/20 15:44 11/21/20 16:22 Hydrocodone/Acetaminophen (*Crx) 7.5-325 Mg Tablet PO 1 tab Q4H PRN Administration pain 4-6 Albuterol 1 puff 11/07/20 15:44 Albuterol Sulfate (*Sp) Aerosol 1 Puff INHALATION Q4H PRN shortness of breath or wheezing Albuterol 5 mg 11/11/20 15:40 Albuterol Sulfate Neb 2.5 Mg/0.5 Ml Inh INHALATION Q6HRT PRN Shortness Of Breath Or Wheezing Bumetanide 2 mg 11/20/20 17:00 11/21/20 08:29 Bumetanide Inj 2.5 Mg/10 Ml Vial IV PUSH 2 mg BID [place]ILAN[place] Administration Calcium Carbonate 200 mg 11/10/20 00:28 11/21/20 11:00 Calcium Carbonate (Tums) 500 Mg (200 Mg Elemental) PO 200 mg Q6H PRN Administration Indigestion Cyanocobalam
[2020-11-21 20:00] VITALS: O2SAT 98
[2020-11-21 20:32] VITALS: BP 141/55; PULSE 101; RESP 18; TEMP 36.7; O2SAT 100
[2020-11-21] MEDS: MONTELUKAST SODIUM 10 MG TABLET PO (20:32)
[2020-11-21] MEDS: MICONAZOLE NITRATE 2% VAGINAL CREAM 45 GM TUBE 1 APPFUL VAGINAL (20:33)
[2020-11-21 20:43] VITALS: O2SAT 100
[2020-11-22] MEDS: HYDROcodone/acetaminophen (*CRX) 7.5-325 MG TABLET 1 TAB PO ×6 (01:02→22:30)
[2020-11-22] MEDS: ONDANSETRON HCL ODT 4 MG TABLET PO ×3 (05:08→17:17)
[2020-11-22 05:35] VITALS: BP 142/60; PULSE 103; RESP 18; TEMP 35.9; O2SAT 98
[2020-11-22 05:58] LABS: Hematocrit 26.8 % (37.0-47.0); Hemoglobin 8.7 g/dL (12.0-15.0); Mean Corpuscular HGB Conc 32.5 g/dl (32-36); Mean Corpuscular Hemoglobin 29.1 pg (26-34); Mean Corpuscular Volume 89.6 fl (80-100); Mean Platelet Volume 9.2 fl (7.4-10.4); Platelet Count Result 371 k/mm3 (150-375); Red Blood Count 2.99 M/mm3 (4.2-5.4); Red Cell Distribution Width 12.9 % (11.5-14.5); White Blood Count 8.9 K/mm3 (4.5-10.0)
[2020-11-22 06:23] LABS: Albumin Level 3.2 g/dL (3.5-5.1); Anion Gap 8 mmol/L (8-16); Blood Urea Nitrogen 38 mg/dL (7-17); Calcium 9.1 mg/dL (8.4-10.2); Carbon Dioxide 27 mmol/L (22-30); Chloride 106 mmol/L (98-107); Estimated CRCL calculation 14 ml/min; Estimated Glomerular Filt Rate 8; Glucose 101 mg/dL (65-105); Potassium 3.5 mmol/L (3.4-5.0); Sodium 141 mmol/L (137-145)
[2020-11-22] MEDS: SILVERGEL (ELTA) 45 ML 1 APPLIC TOPICAL (09:36)
[2020-11-22] MEDS: CYANOCOBALAMIN 1,000 MCG TABLET 1000 MCG PO (09:36)
[2020-11-22] MEDS: BUMETANIDE INJ 2.5 MG/10 ML VIAL 2 MG IV PUSH (09:36)
[2020-11-22] MEDS: ENOXAPARIN 30 MG/0.3 ML SYRINGE SUB-Q (09:36)
[2020-11-22] MEDS: FERROUS SULFATE 324 MG TABLET PO (09:36)
[2020-11-22] MEDS: CALCIUM CARBONATE (TUMS) 500 MG (200 MG ELEMENTAL) PO ×2 (09:37→21:33)
--- NOTE | 2020-11-22 09:53 | PM.PNNEP ---
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 - infection (leg cellulitis) - off antibiotics (drugs themselves versus possible acute interstitial nephritis) -- however, no peripheral eosinophilia and urine eosinophils negative evaluation to date: - renal ultrasound without obstruction - urine electrolytes are non pre-renal - urine eosinophils are negative - complements and ASO okay; other serologies pending - renal scan shows uptake without excretion consistent with acute tubular necrosis creatinine has came down a bit in the last few days better urine output in the last few days (although is receiving IV bumex) - will back off on IV bumex (change to qday dosing) continue to hold dialysis today (2) Left leg cellulitis: Code(s): L03.116 - Cellulitis of left lower limb Status: Acute Assessment and Plan: completed course of antibiotics WBC stable and no fevers local wound care (3) COPD (chronic obstructive pulmonary disease): Qualifiers: COPD type: unspecified COPD Qualified Code(s): J44.9 - Chronic obstructive pulmonary disease, unspecified Code(s): J44.9 - Chronic obstructive pulmonary disease, unspecified Status: Chronic Assessment and Plan: appears relatively stable continue supplemental oxygen and inhalers (4) Benign essential HTN: Code(s): I10 - Essential (primary) hypertension Status: Acute Assessment and Plan: systolic in the 120 to 140 range. follow trend of hemodynamics Discussed case with Dr. Lacey. Will continue to follow. Subjective Date/time seen: 11/22/20 09:53 No apparent distress voiced at this time; reasonable urine output noted (albeit with IV diuretics); still with some nausea but able to eat/drink okay; no acute issues or problems overnight or this AM; no events/issues overnight or earlier this AM. Exam Narrative: Exam Narrative: General: WD/WN female in NAD Heart: normal S1 and S2; no rub or gallop Lungs: decreased breath sounds at bases Abdomen: soft, nontender, nondistended, positive bowel sounds Extremities: 1+ edema Skin: left LE edema/dressings Objective Data Vital Signs Vital Signs: Vital Signs Temp Pulse Resp BP Pulse Ox 11/22/20 05:35 35.9 C L 103 H 18 142/60 H 98 11/21/20 20:43 100 11/21/20 20:32 36.7 C 101 H 18 141/55 H 100 11/21/20 20:00 98 11/21/20 14:47 35.9 C L 102 H 18 137/62 99 Intake/Output Intake/Output: Intake & Output 11/19/20 11/20/20 11/21/20 11/22/20 23:59 23:59 23:59 23:59 Intake Total 1368 1230 1240 400 Output Total 550 2250 2750 300 Balance 818 -1020 -1510 100 Meds/Results Medications: Active Medications Generic Name Dose Route Start Last Admin Trade Name Freq PRN Reason Stop Dose Admin Acetaminophen 650 mg 11/07/20 15:58 11/08/20 04:22 Acetaminophen 325 Mg Tablet PO 650 mg Q4H PRN Administration Mild Pain (1-3) or Fever Hydrocodone Bitart/Acetaminophen 1 tab 11/07/20 15:44 11/22/20 09:37 Hydrocodone/Acetaminophen (*Crx) 7.5-325 Mg Tablet PO 1 tab Q4H PRN Administration pain 4-6 Albuterol 1 puff 11/07/20 15:44 Albuterol Sulfate (*Sp) Aerosol 1 Puff INHALATION Q4H PRN shortness of breath or wheezing Albuterol 5 mg 11/11/20 15:40 Albuterol Sulfate Neb 2.5 Mg/0.5 Ml Inh INHALATION Q6HRT PRN Shortness Of
--- NOTE | 2020-11-22 14:18 | PM.IMPN ---
Progress Note: A&P Assessment and Plan (1) SEEMA (acute kidney injury): Code(s): N17.9 - Acute kidney failure, unspecified Status: Acute Assessment and Plan: Nephrology consulted and appreciate their input. [place] to be multifactorial including prerenal factors, concurrent use of Shreyas inhibitor and diuretics along with NSAIDs, relative hypotension, infection and need for use of antibiotics. Renal ultrasound without obstruction. Additional workup also unrevealing. Creatinine is better at 5.40 today. Remains on IV Bumex but frequency decreased. Holding off on dialysis for now. Will continue to monitor kidney function. (2) Left leg cellulitis: Code(s): L03.116 - Cellulitis of left lower limb Status: Acute Assessment and Plan: Appreciate help from General surgery. Venous Doppler left lower extremity negative for DVT. CT scan did show deep skin ulceration with diffuse skin thickening and subcutaneous edema throughout the lower leg consistent with cellulitis. Had debridement on 11/08/2020. Completed treatment with antibiotics. WBC remains normal. Continue local wound care. (3) Physical deconditioning: Code(s): R53.81 - Other malaise Status: Acute Assessment and Plan: Most likely multifactorial. Will continue PT/OT. (4) COPD (chronic obstructive pulmonary disease): Qualifiers: COPD type: unspecified COPD Qualified Code(s): J44.9 - Chronic obstructive pulmonary disease, unspecified Code(s): J44.9 - Chronic obstructive pulmonary disease, unspecified Status: Chronic Assessment and Plan: No exacerbation. Continue Spiriva and Singulair. Albuterol available prn. Remains on home oxygen of 2 L. Will monitor. (5) Chronic respiratory failure: Qualifiers: Respiratory failure complication: hypoxia Qualified Code(s): J96.11 - Chronic respiratory failure with hypoxia Code(s): J96.10 - Chronic respiratory failure, unspecified whether with hypoxia or hypercapnia Status: Acute Assessment and Plan: Lungs clear. Remains on home oxygen of 2 L as noted above. Will monitor. (6) Anemia: Qualifiers: Anemia type: unspecified type Qualified Code(s): D64.9 - Anemia, unspecified Code(s): D64.9 - Anemia, unspecified Status: Acute Assessment and Plan: Hemoglobin stable at 8.7 again today. Will continue vitamin B12 and iron. Continue to monitor. Transfuse if needed. (7) Benign essential HTN: Code(s): I10 - Essential (primary) hypertension Status: Acute Assessment and Plan: Blood pressure reviewed on 11/22/2020. Presently stable. Hme lisinopril and HCTZ on hold. Will continue to monitor with IV Bumex. (8) DVT prophylaxis: Code(s): Z29.9 - Encounter for prophylactic measures, unspecified Status: Acute Assessment and Plan: Lovenox. Subjective Date/time seen: 11/22/20 14:18 Interval history: 59yo female with COPD and chronic respiratory failure on 2L here for left calf infection and developed acute kidney injury.. assuming care. Chart reviewed. Patient denies any chest pain or shortness of breath but does have chronic dyspnea on exertion. She still feels nauseous but is able to eat some. She has been up to the chair and walking to the bathroom. Exam Narrative: Exam Narrative: AF 96.6 142/60 103 18 98% 2L Gen - NARD lying semi recumbent in bed Chest - clear, distant BS bilaterally, nml RR. Right upper chest IJ tunneled catheter CV - RRR with S1/S2 Abd - Soft, obese, NT, +BS Ext - 2+ pitting bilateral lower extremity edema Psych - Normal mood and affect Skin - warm and dry. LLE dressing clean and dry Objective Data Vital Signs Vital Signs: Vital Signs - 24 hr 11/21/20 14:47 11/21/20 20:00 11/21/20 20:32 Temperature 96.6 F L 98.1 F Pulse Rate 102 H 101 H Respiratory Rate 18 18 Blood Pressure 137/62
[2020-11-22 14:43] VITALS: BP 135/68; PULSE 100; RESP 16; TEMP 36.7; O2SAT 100
[2020-11-22 18:07] LABS: Hepatitis B Core Ab Total Nonreactive (Nonreactive)
[2020-11-22 20:00] VITALS: O2SAT 100
[2020-11-22] MEDS: MONTELUKAST SODIUM 10 MG TABLET PO (20:05)
[2020-11-22 20:10] VITALS: PULSE 87; O2SAT 97
[2020-11-22] MEDS: MICONAZOLE NITRATE 2% VAGINAL CREAM 45 GM TUBE 1 APPFUL VAGINAL (20:11)
[2020-11-22 21:09] VITALS: BP 146/69; PULSE 88; RESP 18; TEMP 36.1; O2SAT 100
[2020-11-22 22:30] VITALS: PULSE 87; O2SAT 97
[2020-11-23] VITALS (9 sets, daily range): BP systolic 126–138; BP diastolic 51–69; PULSE 84–100; RESP 16–20; TEMP 35.9–36.1; O2SAT 86–100
[2020-11-23] MEDS: HYDROcodone/acetaminophen (*CRX) 7.5-325 MG TABLET 1 TAB PO ×5 (03:20→20:31)
[2020-11-23] MEDS: CALCIUM CARBONATE (TUMS) 500 MG (200 MG ELEMENTAL) PO ×3 (04:40→22:35)
[2020-11-23] MEDS: ONDANSETRON HCL ODT 4 MG TABLET PO ×3 (05:49→17:17)
[2020-11-23 06:08] LABS: Hematocrit 26.2 % (37.0-47.0); Hemoglobin 8.4 g/dL (12.0-15.0); Mean Corpuscular HGB Conc 32.1 g/dl (32-36); Mean Corpuscular Hemoglobin 28.9 pg (26-34); Mean Platelet Volume 9.3 fl (7.4-10.4); Platelet Count Result 359 k/mm3 (150-375); Red Blood Count 2.91 M/mm3 (4.2-5.4); Red Cell Distribution Width 12.8 % (11.5-14.5); White Blood Count 9.8 K/mm3 (4.5-10.0)
[2020-11-23 06:26] LABS: Potassium 3.4 mmol/L (3.4-5.0)
[2020-11-23 06:29] LABS: Albumin Level 3.1 g/dL (3.5-5.1); Anion Gap 6 mmol/L (8-16); Blood Urea Nitrogen 37 mg/dL (7-17); Carbon Dioxide 29 mmol/L (22-30); Chloride 105 mmol/L (98-107); Estimated CRCL calculation 16 ml/min; Estimated Glomerular Filt Rate 9; Glucose 99 mg/dL (65-105); Phosphorus 4.7 mg/dL (2.5-4.5); Sodium 140 mmol/L (137-145)
[2020-11-23] MEDS: BUMETANIDE INJ 2.5 MG/10 ML VIAL 2 MG IV PUSH (07:48)
[2020-11-23] MEDS: CYANOCOBALAMIN 1,000 MCG TABLET 1000 MCG PO (09:25)
[2020-11-23] MEDS: ENOXAPARIN 30 MG/0.3 ML SYRINGE SUB-Q (09:25)
[2020-11-23] MEDS: FERROUS SULFATE 324 MG TABLET PO (09:25)
[2020-11-23] MEDS: SILVERGEL (ELTA) 45 ML 1 APPLIC TOPICAL (09:26)
--- NOTE | 2020-11-23 11:04 | PM.IMPN ---
Progress Note: A&P Assessment and Plan (1) SEEMA (acute kidney injury): Code(s): N17.9 - Acute kidney failure, unspecified Status: Acute Assessment and Plan: Nephrology consulted and appreciate their input. [place] to be multifactorial including prerenal factors, concurrent use of Shreyas inhibitor and diuretics along with NSAIDs, relative hypotension, infection and need for use of antibiotics. Renal ultrasound without obstruction. Additional workup also unrevealing. DuraFlow tunneled right IJ central venous catheter placed on 11/18/20 and received HD 11/19/20. Started on Bumex 2mg IV BID but frequency decreased yesterday. Creatinine is better at 4.7 today. Holding off on dialysis for now. Will continue to monitor kidney function. Hopefully home soon if Cr continues to improve. (2) Left leg cellulitis: Code(s): L03.116 - Cellulitis of left lower limb Status: Acute Assessment and Plan: Appreciate help from General surgery. Venous Doppler left lower extremity negative for DVT. CT scan did show deep skin ulceration with diffuse skin thickening and subcutaneous edema throughout the lower leg consistent with cellulitis. Had debridement on 11/08/2020. Completed treatment with antibiotics. WBC remains normal. Continue local wound care. (3) Physical deconditioning: Code(s): R53.81 - Other malaise Status: Acute Assessment and Plan: Most likely multifactorial. Will continue PT/OT. (4) COPD (chronic obstructive pulmonary disease): Qualifiers: COPD type: unspecified COPD Qualified Code(s): J44.9 - Chronic obstructive pulmonary disease, unspecified Code(s): J44.9 - Chronic obstructive pulmonary disease, unspecified Status: Chronic Assessment and Plan: No exacerbation. Continue Spiriva and Singulair. Albuterol available prn. Remains on home oxygen of 2 L. Will monitor. (5) Chronic respiratory failure: Qualifiers: Respiratory failure complication: hypoxia Qualified Code(s): J96.11 - Chronic respiratory failure with hypoxia Code(s): J96.10 - Chronic respiratory failure, unspecified whether with hypoxia or hypercapnia Status: Acute Assessment and Plan: Lungs clear. Remains on home oxygen of 2 L as noted above. Will monitor. Check home O2 evaluation to see if she needs more O2 with activity. (6) Anemia: Qualifiers: Anemia type: unspecified type Qualified Code(s): D64.9 - Anemia, unspecified Code(s): D64.9 - Anemia, unspecified Status: Acute Assessment and Plan: Hemoglobin 11.4 on admission. Hgb dropped to 8.4 today. Iron 24 woth TIBC 202 and TSat 12%. Ferritin 97 with normal B12/Folate. Will continue vitamin B12 and iron. Continue to monitor. Transfuse if needed. (7) Benign essential HTN: Code(s): I10 - Essential (primary) hypertension Status: Acute Assessment and Plan: Blood pressure reviewed on 11/23. BP well controlled. Home lisinopril and HCTZ remain on hold. Will continue to monitor with IV Bumex. (8) DVT prophylaxis: Code(s): Z29.9 - Encounter for prophylactic measures, unspecified Status: Acute Assessment and Plan: Lovenox. Subjective Date/time seen: 11/23/20 11:04 Interval history: 59yo female with COPD and chronic respiratory failure on 2L here for left calf infection and developed acute kidney injury.. Patient denies any chest pain. She is SOB now after walking back from the BR. She is voiding very well. Still feels nauseous mostly when she is up walking. She is somewhat compliant with NIV. She denies that she is supposed to wear more O2 with exertion Exam Narrative: Exam Narrative: AF 97.0 126/51 84 18 97% 2L Gen - NARD but mildly tachypneic that improved lying semi-recumbent in bed Chest - clear, distant BS bilaterally. Right upper chest IJ tunneled catheter with bruising noted right
--- NOTE | 2020-11-23 11:13 | PCNFU ---
Nutrition Follow-Up Complete: Inadequate Oral Intake as related to Nausea as evidenced by poor po intake. Goal: Adequate Intake of at least 75% of meals/supplements Limited progress towards goal. We will continue current goal. Pt current nutrition is Regular. Last recorded weight is 121 kg,up from 115 kg on admit. Bowel Motility:+BM reported 11/21 Labs Reviewed:GFR 9,Cr 4.7,Alb 3.1,Hgb 8.4,Hct 26.2 Meds Noted:Bumex,Zenda, Vitamin B12,Lovenox, Singulair,Zofran,Spiriva. Additional Notes: Patient seen today for nutrition follow up. She still complains of nausea. PO intake remains poor, 10% of meals reported. Today she ate 1/4 sandwich-encinas, peaches and chocolate milk. She does state to being constipated and plans to discuss that with MD. Encouraged po intake. Agree with diet orders. Monitoring: RD will monitor every 5 days.
[2020-11-23] MEDS: MAGNESIUM HYDROXIDE SUSP 30 ML UDC PO (11:41)
--- NOTE | 2020-11-23 16:09 | PM.PNNEP ---
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 - infection (leg cellulitis) - off antibiotics (drugs themselves versus possible acute interstitial nephritis) -- however, no peripheral eosinophilia and urine eosinophils negative evaluation to date: - renal ultrasound without obstruction - urine electrolytes are non pre-renal - urine eosinophils are negative - complements and ASO okay; other serologies pending - renal scan shows uptake without excretion consistent with acute tubular necrosis creatinine has came down a bit in the last few days better urine output in the last few days (although is receiving IV bumex) - d/c IV bumex today continue to hold dialysis - if creatinine continues to improve, hopefully d/c tunneled HD catheter (2) Left leg cellulitis: Code(s): L03.116 - Cellulitis of left lower limb Status: Acute Assessment and Plan: completed course of antibiotics WBC stable and no fevers local wound care (3) COPD (chronic obstructive pulmonary disease): Qualifiers: COPD type: unspecified COPD Qualified Code(s): J44.9 - Chronic obstructive pulmonary disease, unspecified Code(s): J44.9 - Chronic obstructive pulmonary disease, unspecified Status: Chronic Assessment and Plan: appears relatively stable continue supplemental oxygen and inhalers (4) Benign essential HTN: Code(s): I10 - Essential (primary) hypertension Status: Acute Assessment and Plan: systolic in the 120 to 140 range. follow trend of hemodynamics Will continue to follow. Subjective Date/time seen: 11/23/20 16:09 Continue to make good urine output; still with on/off nausea in general; has noted more shortness of breath particularly with exertional activities; otherwise, no acute distress voiced at this time; no events overnight or earlier this AM. Exam Narrative: Exam Narrative: General: WD/WN female in NAD Heart: normal S1 and S2; no rub or gallop Lungs: decreased breath sounds at bases Abdomen: soft, nontender, nondistended, positive bowel sounds Extremities: trace - 1+ edema Skin: left LE edema/dressings Objective Data Vital Signs Vital Signs: Vital Signs Temp Pulse Resp BP Pulse Ox 11/23/20 13:25 100 93 11/23/20 13:20 86 L 11/23/20 13:15 88 94 11/23/20 07:48 84 97 11/23/20 04:33 36.1 C L 92 18 126/51 L 100 11/22/20 22:30 87 97 11/22/20 21:09 36.1 C L 88 18 146/69 H 100 11/22/20 20:10 87 97 11/22/20 20:00 100 Intake/Output Intake/Output: Intake & Output 11/20/20 11/21/20 11/22/20 11/23/20 23:59 23:59 23:59 23:59 Intake Total 1230 1240 1670 830 Output Total 2250 2750 1650 1600 Balance -1020 -1510 20 -770 Meds/Results Medications: Active Medications Generic Name Dose Route Start Last Admin Trade Name Freq PRN Reason Stop Dose Admin Acetaminophen 650 mg 11/07/20 15:58 11/08/20 04:22 Acetaminophen 325 Mg Tablet PO 650 mg Q4H PRN Administration Mild Pain (1-3) or Fever Hydrocodone Bitart/Acetaminophen 1 tab 11/07/20 15:44 11/23/20 16:16 Hydrocodone/Acetaminophen (*Crx) 7.5-325 Mg Tablet PO 1 tab Q4H PRN Administration pain 4-6 Albuterol 1 puff 11/07/20 15:44 Albuterol Sulfate (*Sp) Aerosol 1 Puff INHALATION Q4H PRN shortness of breath or wheezing Albuterol 5
[2020-11-23] MEDS: MONTELUKAST SODIUM 10 MG TABLET PO (20:32)
[2020-11-24] MEDS: ONDANSETRON HCL ODT 4 MG TABLET PO ×4 (01:15→22:08)
[2020-11-24] MEDS: HYDROcodone/acetaminophen (*CRX) 7.5-325 MG TABLET 1 TAB PO ×5 (01:16→20:28)
[2020-11-24 04:46] VITALS: BP 144/53; PULSE 94; RESP 20; TEMP 36.3; O2SAT 99
[2020-11-24] MEDS: CALCIUM CARBONATE (TUMS) 500 MG (200 MG ELEMENTAL) PO ×2 (05:54→17:59)
[2020-11-24 06:07] LABS: Hematocrit 28.6 % (37.0-47.0); Mean Corpuscular HGB Conc 31.5 g/dl (32-36); Mean Corpuscular Hemoglobin 28.8 pg (26-34); Mean Corpuscular Volume 91.7 fl (80-100); Mean Platelet Volume 9.3 fl (7.4-10.4); Platelet Count Result 359 k/mm3 (150-375); Red Blood Count 3.12 M/mm3 (4.2-5.4); Red Cell Distribution Width 12.8 % (11.5-14.5); White Blood Count 9.6 K/mm3 (4.5-10.0)
[2020-11-24 06:18] LABS: Albumin Level 3.3 g/dL (3.5-5.1); Anion Gap 4 mmol/L (8-16); Blood Urea Nitrogen 35 mg/dL (7-17); Calcium 9.3 mg/dL (8.4-10.2); Carbon Dioxide 32 mmol/L (22-30); Chloride 104 mmol/L (98-107); Estimated CRCL calculation 17 ml/min; Estimated Glomerular Filt Rate 10; Glucose 100 mg/dL (65-105); Phosphorus 4.3 mg/dL (2.5-4.5); Potassium 3.8 mmol/L (3.4-5.0); Sodium 140 mmol/L (137-145)
[2020-11-24] MEDS: FERROUS SULFATE 324 MG TABLET PO (08:30)
[2020-11-24] MEDS: CYANOCOBALAMIN 1,000 MCG TABLET 1000 MCG PO (08:30)
[2020-11-24] MEDS: ENOXAPARIN 30 MG/0.3 ML SYRINGE SUB-Q (08:30)
[2020-11-24] MEDS: MAGNESIUM HYDROXIDE SUSP 30 ML UDC PO (08:32)
[2020-11-24] MEDS: SILVERGEL (ELTA) 45 ML 1 APPLIC TOPICAL (08:39)
[2020-11-24 13:40] VITALS: BP 125/54; PULSE 98; RESP 16; TEMP 36.2; O2SAT 99
--- NOTE | 2020-11-24 14:52 | PM.PNNEP ---
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 - relative hypotension - infection (leg cellulitis) - off antibiotics (drugs themselves versus possible acute interstitial nephritis) -- however, no peripheral eosinophilia and urine eosinophils negative evaluation to date: - renal ultrasound without obstruction - urine electrolytes are non pre-renal - urine eosinophils are negative - complements and ASO okay; other serologies pending - renal scan shows uptake without excretion consistent with acute tubular necrosis creatinine has came down a bit in the last few days reasonable UOP without diuretics continue to hold dialysis - plan removal of HD catheter tomorrow (2) Left leg cellulitis: Code(s): L03.116 - Cellulitis of left lower limb Status: Acute Assessment and Plan: completed course of antibiotics WBC stable and no fevers local wound care (3) COPD (chronic obstructive pulmonary disease): Qualifiers: COPD type: unspecified COPD Qualified Code(s): J44.9 - Chronic obstructive pulmonary disease, unspecified Code(s): J44.9 - Chronic obstructive pulmonary disease, unspecified Status: Chronic Assessment and Plan: appears relatively stable continue supplemental oxygen and inhalers (4) Benign essential HTN: Code(s): I10 - Essential (primary) hypertension Status: Acute Assessment and Plan: systolic in the 120 to 140 range. follow trend of hemodynamics Will continue to follow. Subjective Date/time seen: 11/24/20 14:52 No acute distress noted -- complaining of a knot /pain in her posterior left leg which seemed to resolved on its own; making reasonable urine output (without diuretics); no other acute complaints/concerns voiced at the time of my visit. Exam Narrative: Exam Narrative: General: WD/WN female in NAD Heart: normal S1 and S2; no rub or gallop Lungs: decreased breath sounds at bases Abdomen: soft, nontender, nondistended, positive bowel sounds Extremities: trace - 1+ edema Skin: left LE edema/dressings Objective Data Vital Signs Vital Signs: Vital Signs Temp Pulse Resp BP Pulse Ox 11/24/20 13:40 36.2 C L 98 16 125/54 L 99 11/24/20 04:46 36.3 C L 94 20 144/53 H 99 11/23/20 23:11 94 98 11/23/20 20:36 100 11/23/20 20:28 36.1 C L 94 20 138/68 100 Intake/Output Intake/Output: Intake & Output 11/21/20 11/22/20 11/23/20 11/24/20 23:59 23:59 23:59 23:59 Intake Total 1240 1670 1370 620 Output Total 2750 1650 2300 920 Balance -1510 20 -930 -300 Meds/Results Medications: Active Medications Generic Name Dose Route Start Last Admin Trade Name Freq PRN Reason Stop Dose Admin Acetaminophen 650 mg 11/07/20 15:58 11/08/20 04:22 Acetaminophen 325 Mg Tablet PO 650 mg Q4H PRN Administration Mild Pain (1-3) or Fever Hydrocodone Bitart/Acetaminophen 1 tab 11/07/20 15:44 11/24/20 15:29 Hydrocodone/Acetaminophen (*Crx) 7.5-325 Mg Tablet PO 1 tab Q4H PRN Administration pain 4-6 Albuterol 1 puff 11/07/20 15:44 Albuterol Sulfate (*Sp) Aerosol 1 Puff INHALATION Q4H PRN shortness of breath or wheezing Albuterol 5 mg 11/11/20 15:40 Albuterol Sulfate Neb 2.5 Mg/0.5 Ml Inh INHALATION Q6HRT PRN Shortness Of Breath Or Wheezing Bumetanide 2 mg 11/23/20 09:00 11/23/20 07:48 Bumetanide Inj 2.5 Mg/10 M
--- NOTE | 2020-11-24 18:10 | PM.IMPN ---
Progress Note: A&P Assessment and Plan (1) SEEMA (acute kidney injury): Code(s): N17.9 - Acute kidney failure, unspecified Status: Acute Assessment and Plan: Nephrology consulted and appreciate their input. [place] to be multifactorial including prerenal factors, concurrent use of Shreyas inhibitor and diuretics along with NSAIDs, relative hypotension, infection and need for use of antibiotics. Renal ultrasound without obstruction. Additional workup also unrevealing. DuraFlow tunneled right IJ central venous catheter placed on 11/18/20 and received HD 11/19/20. Started on Bumex 2mg IV BID but frequency decreased to daily on 11/23 but then held (Last Bumex dose was morning of 11/23). Creatinine is better at 4.4 today. Excellent UOP - post-ATN diuresis? Holding off on dialysis for now. Will continue to monitor kidney function. Plan to remove HD catheter tomorrow if continue to trend appropriately. (2) Left leg cellulitis: Code(s): L03.116 - Cellulitis of left lower limb Status: Acute Assessment and Plan: Appreciate help from General surgery. Venous Doppler left lower extremity negative for DVT. CT scan did show deep skin ulceration with diffuse skin thickening and subcutaneous edema throughout the lower leg consistent with cellulitis. Had debridement on 11/08/2020. Completed treatment with antibiotics. WBC remains normal. Continue local wound care. (3) Physical deconditioning: Code(s): R53.81 - Other malaise Status: Acute Assessment and Plan: Most likely multifactorial. Continue PT/OT. (4) COPD (chronic obstructive pulmonary disease): Qualifiers: COPD type: unspecified COPD Qualified Code(s): J44.9 - Chronic obstructive pulmonary disease, unspecified Code(s): J44.9 - Chronic obstructive pulmonary disease, unspecified Status: Chronic Assessment and Plan: No exacerbation. Continue Spiriva and Singulair. Albuterol available prn. Remains on home oxygen of 2 L. Will monitor. (5) Chronic respiratory failure: Qualifiers: Respiratory failure complication: hypoxia Qualified Code(s): J96.11 - Chronic respiratory failure with hypoxia Code(s): J96.10 - Chronic respiratory failure, unspecified whether with hypoxia or hypercapnia Status: Acute Assessment and Plan: Lungs clear. Remains on home oxygen of 2 L as noted above. Will monitor. Home O2 evaluation pending to assess her O2 needs when walking. (6) Anemia: Qualifiers: Anemia type: unspecified type Qualified Code(s): D64.9 - Anemia, unspecified Code(s): D64.9 - Anemia, unspecified Status: Acute Assessment and Plan: Hemoglobin 11.4 on admission. Hgb dropped to 8.4 yesterday. Iron 24 with TIBC 202 and TSat 12%. Ferritin 97 with normal B12/Folate. Hgb better today at 9 possibly related to the diuresis. Will continue vitamin B12 and iron. Continue to monitor. Transfuse if needed. (7) Benign essential HTN: Code(s): I10 - Essential (primary) hypertension Status: Acute Assessment and Plan: Blood pressure reviewed on 11/24. BP well controlled. Home lisinopril and HCTZ remain on hold. Will continue to monitor (8) DVT prophylaxis: Code(s): Z29.9 - Encounter for prophylactic measures, unspecified Status: Acute Assessment and Plan: Lovenox. Subjective Date/time seen: 11/24/20 18:10 Interval history: 59yo female with COPD and chronic respiratory failure on 2L here for left calf infection and developed acute kidney injury.. Patient is having excellent urine output. Eating better. Still has bouts of nausea. No chest pain. She is up walking to the bathroom. Exam Narrative: Exam Narrative: AF 97.2 125/54 981 16 99% 2L Gen - NARD lying semi-recumbent in bed Chest - clear, distant BS bilaterally. Right upper chest IJ tunneled catheter with bruising/suture
[2020-11-24] MEDS: MONTELUKAST SODIUM 10 MG TABLET PO (20:28)
[2020-11-24 20:33] VITALS: BP 149/64; PULSE 102; RESP 18; TEMP 35.9; O2SAT 97
[2020-11-24 20:38] VITALS: O2SAT 99
[2020-11-24 22:45] VITALS: PULSE 92; O2SAT 99
[2020-11-25] MEDS: CALCIUM CARBONATE (TUMS) 500 MG (200 MG ELEMENTAL) PO ×3 (01:18→12:42)
[2020-11-25] MEDS: HYDROcodone/acetaminophen (*CRX) 7.5-325 MG TABLET 1 TAB PO ×4 (01:18→14:20)
[2020-11-25 01:38] VITALS: PULSE 87; O2SAT 98
[2020-11-25] MEDS: ONDANSETRON HCL ODT 4 MG TABLET PO ×2 (05:18→12:42)
[2020-11-25 06:00] VITALS: BP 118/53; PULSE 87; RESP 16; TEMP 35.8; O2SAT 98
[2020-11-25 07:11] LABS: Hemoglobin 8.5 g/dL (12.0-15.0); Mean Corpuscular HGB Conc 31.5 g/dl (32-36); Mean Corpuscular Hemoglobin 28.3 pg (26-34); Mean Platelet Volume 9.7 fl (7.4-10.4); Platelet Count Result 346 k/mm3 (150-375); Red Cell Distribution Width 12.8 % (11.5-14.5); White Blood Count 9.2 K/mm3 (4.5-10.0)
[2020-11-25 07:58] LABS: Albumin Level 3.3 g/dL (3.5-5.1); Anion Gap 5 mmol/L (8-16); Blood Urea Nitrogen 32 mg/dL (7-17); Calcium 9.5 mg/dL (8.4-10.2); Carbon Dioxide 31 mmol/L (22-30); Chloride 103 mmol/L (98-107); Estimated CRCL calculation 21 ml/min; Estimated Glomerular Filt Rate 13; Glucose 96 mg/dL (65-105); Potassium 3.6 mmol/L (3.4-5.0); Sodium 139 mmol/L (137-145)
[2020-11-25 08:00] VITALS: O2SAT 97
[2020-11-25] MEDS: SILVERGEL (ELTA) 45 ML 1 APPLIC TOPICAL (08:11)
[2020-11-25] MEDS: MAGNESIUM HYDROXIDE SUSP 30 ML UDC PO (08:11)
[2020-11-25] MEDS: ENOXAPARIN 30 MG/0.3 ML SYRINGE SUB-Q (08:11)
[2020-11-25] MEDS: FERROUS SULFATE 324 MG TABLET PO (08:11)
[2020-11-25] MEDS: CYANOCOBALAMIN 1,000 MCG TABLET 1000 MCG PO (08:11)
--- NOTE | 2020-11-25 11:09 | PM.PNGS ---
Progress Note: A&P Assessment and Plan (1) SEEMA (acute kidney injury): Code(s): N17.9 - Acute kidney failure, unspecified Status: Acute Assessment and Plan: continues to improve. (2) Admission for fitting and adjustment of vascular catheter: Code(s): Z45.2 - Encounter for adjustment and management of vascular access device Status: Acute Assessment and Plan: Tunneled Dura Flow catheter removed at bedside as requested by Nephrology. Patient tolerated well. Can remove dressing tomorrow and leave open. Subjective Subjective Date/Time Seen: 11/25/20 11:09 Patient reports: no new complaints Exam Neck: Neck: other ( Tunnel Dura Flow catheter in place) Objective Data Vital Signs Vital Signs: Vital Signs - 24 hr 11/24/20 13:40 11/24/20 20:33 11/24/20 20:38 Temperature 36.2 C L 35.9 C L Pulse Rate 98 102 H Respiratory Rate 16 18 Blood Pressure 125/54 L 149/64 H Pulse Oximetry 99 97 99 11/24/20 22:45 11/25/20 01:38 11/25/20 06:00 Temperature 35.8 C L Pulse Rate 92 87 87 Respiratory Rate 16 Blood Pressure 118/53 L Pulse Oximetry 99 98 98 11/25/20 08:00 Temperature Pulse Rate Respiratory Rate Blood Pressure Pulse Oximetry 97 Intake/Output Intake/Output: Intake & Output 11/22/20 11/23/20 11/24/20 11/25/20 23:59 23:59 23:59 23:59 Intake Total 1670 1370 1020 640 Output Total 1650 2300 1720 800 Balance 20 -740 700 -160 Meds/Results Medications: Active Medications Generic Name Dose Route Start Last Admin Trade Name Freq PRN Reason Stop Dose Admin Acetaminophen 650 mg 11/07/20 15:58 11/08/20 04:22 Acetaminophen 325 Mg Tablet PO 650 mg Q4H PRN Administration Mild Pain (1-3) or Fever Hydrocodone Bitart/Acetaminophen 1 tab 11/07/20 15:44 11/25/20 09:22 Hydrocodone/Acetaminophen (*Crx) 7.5-325 Mg Tablet PO 1 tab Q4H PRN Administration pain 4-6 Albuterol 1 puff 11/07/20 15:44 Albuterol Sulfate (*Sp) Aerosol 1 Puff INHALATION Q4H PRN shortness of breath or wheezing Albuterol 5 mg 11/11/20 15:40 Albuterol Sulfate Neb 2.5 Mg/0.5 Ml Inh INHALATION Q6HRT PRN Shortness Of Breath Or Wheezing Bumetanide 2 mg 11/23/20 09:00 11/23/20 07:48 Bumetanide Inj 2.5 Mg/10 Ml Vial IV PUSH 2 mg DAILY [facility] Administration Calcium Carbonate 200 mg 11/10/20 00:28 11/25/20 06:59 Calcium Carbonate (Tums) 500 Mg (200 Mg Elemental) PO 200 mg Q6H PRN Administration Indigestion Cyanocobalamin 1,000 mcg 11/08/20 09:00 11/25/20 08:11 Cyanocobalamin 1,000 Mcg Tablet PO 1,000 mcg DAILY [facility] Administration Cyclobenzaprine HCl 10 mg 11/07/20 15:44 Cyclobenzaprine Hcl 10 Mg Tablet PO TID PRN muscle spasm Enoxaparin Sodium 30 mg 11/11/20 09:00 11/25/20 08:11 Enoxaparin 30 Mg/0.3 Ml Syringe SUB-Q 30 mg DAILY [facility] Administration Ferrous Sulfate 324 mg 11/16/20 08:00 11/25/20 08:11 Ferrous Sulfate 324 Mg Tablet PO 324 mg DAILY@0800 [facility] Administration Magnesium Hydroxide 30 ml 11/24/20 09:00 11/25/20 08:11 Magnesium Hydroxide Susp 30 Ml Udc PO 30 ml QAM [place] Administration Montelukast Sodium 10 mg 11/07/20 21:00 11/24/20 20:28 Montelukast Sodium 10 Mg Tablet PO 10 mg HS [facility] Administration Morphine Sulfate 2 mg 11/07/20 15:58 11/09/20 11:22 Morphine Sulfate (*Crx) 2 Mg/Ml Inj IV PUSH 2 mg Q4H PRN Administration Pain Rated 7-10 Ondansetron HCl 4 mg 11/16/20 18:05 11/25/20 05:18 Ondansetron Hcl Odt 4 Mg Tablet PO 4 mg Q6H PRN Administration Nausea And Vomiting Silver Nitrate 1 applic 11/10/20 09:00 11/25/20 08:11 Silvergel (Elta) 45 Ml TOPICAL 1 applic DAILY [facility] Administration Tiotropium [place] 1 cap 11/08/20 09:00 11/25/20 08:10 Tiotropium [place] 18 Mcg Cap Diskus INHALATION 1 cap DAILY [facility] Administration Radiology Results: ITS Impressions Venous Doppler
--- NOTE | 2020-11-25 11:38 | PM.DS ---
DS: Admitting Diagnosis Admitting Diagnosis Admitting Diagnosis: Left leg pain with open sore DS: Discharge Diagnosis Discharge Diagnosis (1) SEEMA (acute kidney injury): Code(s): N17.9 - Acute kidney failure, unspecified Status: Acute Assessment and Plan: Cr 1.1 on admission but jumped to 3.0. Nephrology consulted. [place] to be multifactorial including prerenal factors, concurrent use of Shreyas inhibitor and diuretics along with NSAIDs, relative hypotension, infection and need for use of antibiotics. Renal ultrasound without obstruction. Additional workup also unrevealing. She was making urine but Cr continued to climb to 7.5 so a DuraFlow tunneled right IJ central venous catheter was placed on 11/18/20 and received HD 11/19/20. She was started on Bumex 2mg IV BID with improved urine output. Cr began to decline. Bumex frequency decreased to daily on 11/23 but then held (Last Bumex dose was morning of 11/23). Urine output remained brisk off the Bumex - post-ATN diuresis?. Creatinine is better at 3.6 today. HD catheter was removed on 11/25 and patient was able to be discharged home. (2) Left leg cellulitis: Code(s): L03.116 - Cellulitis of left lower limb Status: Acute Assessment and Plan: Appreciate help from General surgery. Venous Doppler left lower extremity negative for DVT. CT left leg scan did show deep skin ulceration with diffuse skin thickening and subcutaneous edema throughout the lower leg consistent with cellulitis. Patient underwent debridement on 11/08/2020. She completed treatment with antibiotics. WBC remained normal. Plan to continue local wound care as putpatient. (3) Physical deconditioning: Code(s): R53.81 - Other malaise Status: Acute Assessment and Plan: Most likely multifactorial related to above. PT/OT worked with the patient. (4) COPD (chronic obstructive pulmonary disease): Qualifiers: COPD type: unspecified COPD Qualified Code(s): J44.9 - Chronic obstructive pulmonary disease, unspecified Code(s): J44.9 - Chronic obstructive pulmonary disease, unspecified Status: Chronic Assessment and Plan: No exacerbation. We continued her Spiriva and Singulair. Albuterol was available prn. She remained on home oxygen of 2 L. (5) Chronic respiratory failure: Qualifiers: Respiratory failure complication: hypoxia Qualified Code(s): J96.11 - Chronic respiratory failure with hypoxia Code(s): J96.10 - Chronic respiratory failure, unspecified whether with hypoxia or hypercapnia Status: Acute Assessment and Plan: Lungs remained clear. She remained stable on her home oxygen of 2 L as noted above. Patient was compliant with her NIV here. (6) Anemia: Qualifiers: Anemia type: unspecified type Qualified Code(s): D64.9 - Anemia, unspecified Code(s): D64.9 - Anemia, unspecified Status: Acute Assessment and Plan: Hemoglobin 11.4 on admission. Hgb drifted down to the 8-9 range possibly related to fluid overload from her renal failure. Iron level was 24 with TIBC 202 and TSat 12%. Ferritin 97 with normal B12/Folate. We continued vitamin B12 and iron. (7) Benign essential HTN: Code(s): I10 - Essential (primary) hypertension Status: Acute Assessment and Plan: Blood pressure monitored closely. BP remainedwell controlled. Her home lisinopril and HCTZ remained on hold (which she only ever received on 11/08). DS: Summary Hospital Course Reason for hospitalization: 59yo female with COPD and chronic respiratory failure on 2L here for left calf infection and developed acute kidney injury. Please see H&P for details Hospital Course: Please see above for details of hospital course. Status at Discharge Cognitive/behavioral status at discharge: Stable Time Spent with Patient Time attestation: Total time spent providing and/or co
--- NOTE | 2020-11-25 11:45 | PM.PNNEP ---
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 - infection (leg cellulitis) - off antibiotics (drugs themselves versus possible acute interstitial nephritis) -- however, no peripheral eosinophilia and urine eosinophils negative evaluation to date: - renal ultrasound without obstruction - urine electrolytes are non pre-renal - urine eosinophils are negative - complements and ASO okay; other serologies pending - renal scan shows uptake without excretion consistent with acute tubular necrosis reasonable UOP without diuretics continue to hold dialysis - s/p removal of HD catheter earlier today (2) Left leg cellulitis: Code(s): L03.116 - Cellulitis of left lower limb Status: Acute Assessment and Plan: completed course of antibiotics WBC stable and no fevers local wound care (3) COPD (chronic obstructive pulmonary disease): Qualifiers: COPD type: unspecified COPD Qualified Code(s): J44.9 - Chronic obstructive pulmonary disease, unspecified Code(s): J44.9 - Chronic obstructive pulmonary disease, unspecified Status: Chronic Assessment and Plan: appears relatively stable continue supplemental oxygen and inhalers (4) Benign essential HTN: Code(s): I10 - Essential (primary) hypertension Status: Acute Assessment and Plan: systolic in the 120 to 140 range. follow trend of hemodynamics Not opposed to discharge from renal perspective if otherwise medically stable; recommending check BMP in about a week to ensure renal function remains stable if not continues to improve and can follow-up with me if renal function fails to improve back to baseline. Will continue to follow Subjective Date/time seen: 11/25/20 11:46 Tolerated removal of tunneled HD catheter removal at bedside by Dr. Franklin; no other acute issues or problems voiced; feels reasonably well; continues to make reasonable urine output without the need for diuretics; no events/issues overnight or earlier today. Exam Narrative: Exam Narrative: General: WD/WN female in NAD Heart: normal S1 and S2; no rub or gallop Lungs: decreased breath sounds at bases Abdomen: soft, nontender, nondistended, positive bowel sounds Extremities: trace - 1+ edema Skin: left LE edema/dressings Objective Data Vital Signs Vital Signs: Vital Signs Temp Pulse Resp BP Pulse Ox 11/25/20 08:00 97 11/25/20 06:00 35.8 C L 87 16 118/53 L 98 11/25/20 01:38 87 98 11/24/20 22:45 92 99 11/24/20 20:38 99 11/24/20 20:33 35.9 C L 102 H 18 149/64 H 97 11/24/20 13:40 36.2 C L 98 16 125/54 L 99 Intake/Output Intake/Output: Intake & Output 11/22/20 11/23/20 11/24/20 11/25/20 23:59 23:59 23:59 23:59 Intake Total 1670 1370 1020 640 Output Total 1650 2300 1720 800 Balance 20 -042 -566 -160 Meds/Results Medications: Active Medications Generic Name Dose Route Start Last Admin Trade Name Freq PRN Reason Stop Dose Admin Acetaminophen 650 mg 11/07/20 15:58 11/08/20 04:22 Acetaminophen 325 Mg Tablet PO 650 mg Q4H PRN Administration Mild Pain (1-3) or Fever Hydrocodone Bitart/Acetaminophen 1 tab 11/07/20 15:44 11/25/20 09:22 Hydrocodone/Acetaminophen (*Crx) 7.5-325 Mg Tablet PO 1 tab Q4H PRN Administration pain 4-6 Albuterol 1 puff 11/07/20 15:44 Albuterol Sulfate
[2020-11-25 14:35] VITALS: BP 147/67; PULSE 87; RESP 16; TEMP 36.4; O2SAT 98
== END 2020-11-25 17:15 | disposition home health service (06) | DRG 383 ==
LOC: ANHED 13:03 → ANH3MED 15:23
PROVIDERS: Family Medicine; Hospitalist; Internal Medicine; Internal Medicine Nephrology; Nurse Practitioner Adult Health; Surgery; Admitting Provider Internal Medicine; Emergency Provider Emergency Medicine; PCP Family Medicine; Visit Provider Internal Medicine
PROC: 0JBP0ZZ Excision of Left Lower Leg Subcutaneous Tissue and Fascia, Open Approach (ICD-10-PCS; principal; 2020-11-08 15:30)
PROC: 0JH63XZ Insertion of Tunneled Vascular Access Device into Chest Subcutaneous Tissue and Fascia, Percutaneous Approach (ICD-10-PCS; CPT 36908; principal; 2020-11-18 15:00)
DX: L03.116 Cellulitis of left lower limb (principal); I83.029 Varicose veins of left lower extremity with ulcer of unspecified site; L97.929 Non-pressure chronic ulcer of unspecified part of left lower leg with unspecified severity; I87.2 Venous insufficiency (chronic) (peripheral); N17.9 Acute kidney failure, unspecified; J96.11 Chronic respiratory failure with hypoxia; J44.9 Chronic obstructive pulmonary disease, unspecified; Z99.81 Dependence on supplemental oxygen; C34.90 Malignant neoplasm of unspecified part of unspecified bronchus or lung; G47.33 Obstructive sleep apnea (adult) (pediatric); I10 Essential (primary) hypertension; R53.81 Other malaise; D64.9 Anemia, unspecified; D51.9 Vitamin B12 deficiency anemia, unspecified; K21.9 Gastro-esophageal reflux disease without esophagitis; M54.2 Cervicalgia; M54.41 Lumbago with sciatica, right side; G89.29 Other chronic pain; F32.9 Major depressive disorder, single episode, unspecified; E66.01 Morbid (severe) obesity due to excess calories; Z68.38 Body mass index [BMI] 38.0-38.9, adult; Z79.899 Other long term (current) drug therapy; Z87.891 Personal history of nicotine dependence; Z92.3 Personal history of irradiation
CPT/HCPCS: 36415; 71045; 73700; 74019; 76775; 77001; 78707; 80048; 80069; 80076; 80202; 81001; 82550; 82570; 82607; 82728; 82746; 83036; 83540; 83550; 83690; 83735; 83883; 84300; 85025; 85027; 85652; 85999; 86038; 86060; 86140; 86160; 86704; 86706; 86803; 86850; 86900; 86901; 87040; 87070; 87205; 87340; 93971; 94618; 94640; 94667; 96365; 97110; 97116; 97161; 97166; 97530; 97535; 99285; A9270; A9562; C1750; G0257; J0690; J1644; J1650; J2060; J2250; J2270; J2405; J2543; J2704; J3010; J3370; J7030; J7040; J7050; J7120

== ENCOUNTER 2020-12-02 14:07 | Outpatient (NON) | payer OTHER, SELFPAY ==
[2020-12-02 14:44] LABS: Hematocrit 29.4 % (37.0-47.0); Hemoglobin 8.9 g/dL (12.0-15.0); Mean Corpuscular HGB Conc 30.3 g/dl (32-36); Mean Corpuscular Hemoglobin 28.6 pg (26-34); Mean Corpuscular Volume 94.5 fl (80-100); Mean Platelet Volume 10.3 fl (7.4-10.4); Platelet Count Result 339 k/mm3 (150-375); Red Blood Count 3.11 M/mm3 (4.2-5.4); Red Cell Distribution Width 13.1 % (11.5-14.5); White Blood Count 8.4 K/mm3 (4.5-10.0)
[2020-12-02 14:57] LABS: Albumin Level 3.3 g/dL (3.5-5.1); Anion Gap 0 mmol/L (8-16); Blood Urea Nitrogen 13 mg/dL (7-17); Calcium 8.6 mg/dL (8.4-10.2); Carbon Dioxide 37 mmol/L (22-30); Chloride 103 mmol/L (98-107); Estimated Glomerular Filt Rate 24; Glucose 92 mg/dL (65-105); Phosphorus 3.6 mg/dL (2.5-4.5); Potassium 3.2 mmol/L (3.4-5.0); Sodium 140 mmol/L (137-145)
== END 2020-12-02 14:08 | disposition home or self-care (01) ==
PROVIDERS: PCP Family Medicine; Visit Provider Internal Medicine
DX: D64.9 Anemia, unspecified (principal); N17.9 Acute kidney failure, unspecified
CPT/HCPCS: 80069; 85027

== ENCOUNTER 2020-12-15 13:02 | Outpatient (NON) | payer OTHER, SELFPAY ==
[2020-12-15 14:13] LABS: Hematocrit 30.1 % (37.0-47.0); Mean Corpuscular HGB Conc 29.9 g/dl (32-36); Mean Corpuscular Hemoglobin 28.8 pg (26-34); Mean Corpuscular Volume 96.2 fl (80-100); Mean Platelet Volume 10.3 fl (7.4-10.4); Platelet Count Result 339 k/mm3 (150-375); Red Blood Count 3.13 M/mm3 (4.2-5.4); Red Cell Distribution Width 13.5 % (11.5-14.5); White Blood Count 7.8 K/mm3 (4.5-10.0)
[2020-12-15 14:27] LABS: Anion Gap 7 mmol/L (8-16); Blood Urea Nitrogen 17 mg/dL (7-17); Calcium 9.4 mg/dL (8.4-10.2); Carbon Dioxide 33 mmol/L (22-30); Chloride 104 mmol/L (98-107); Estimated Glomerular Filt Rate 35; Glucose 92 mg/dL (65-105); Magnesium 2.3 mg/dL (1.6-2.3); Potassium 4.3 mmol/L (3.4-5.0); Sodium 144 mmol/L (137-145)
[2020-12-15 17:36] LABS: Iron 36 ug/dL (37-170)
[2020-12-15 17:46] LABS: Percent Iron Saturation 14 % (20-50)
== END 2020-12-15 13:03 | disposition home or self-care (01) ==
PROVIDERS: PCP Family Medicine; Visit Provider Family Medicine
DX: N17.9 Acute kidney failure, unspecified (principal); D64.9 Anemia, unspecified
CPT/HCPCS: 80048; 82728; 83540; 83550; 83735; 85027

== ENCOUNTER 2020-12-21 13:38 | Emergency (ER) | payer OTHER, SELFPAY ==
[2020-12-21] VITALS (21 sets, daily range): BP systolic 121–158; BP diastolic 61–109; PULSE 108–122; RESP 12–29; TEMP 36.3–36.7; O2SAT 93–100
--- NOTE | ~2020-12-21 | XR_ITS ---
EXAMINATION: XR chest 2V EXAM DATE: 12/21/2020 14:19 INDICATION: Cough and shortness of breath. TECHNIQUE: Frontal and lateral projections of the chest obtained and reviewed. Comparison is made to prior examination from 11/18/2020, 03/31/2020. FINDINGS: Linear bibasilar scarring/atelectasis. The lungs are hyperinflated which can be seen with chronic obstructive pulmonary disease (a clinical diagnosis of functional impairment), but is not jose antonio gnostic of it. There is aortic arteriosclerosis. There are mild bony degenerative changes. No conflu ent consolidation, pneumothorax or pleural effusion suspected. IMPRESSION: 1. Hyperinflation. 2. No acute cardiopulmonary findings. Reviewed, dictated and finalized at location A.
--- NOTE | 2020-12-21 13:46 | ECG_ITS ---
Measurements Intervals [place] Rate: 114 P: 78 [place]: 143 QRS: 22 QRSD: 110 T: 55 QT: 327 QTc: 451 Interpretive Statements SINUS TACHYCARDIA LOW QRS VOLTAGE IN PRECORDIAL LEADS INCOMPLETE RIGHT BUNDLE BRANCH BLOCK BASELINE ARTIFACT- I, III, AVL, AVF, V1 ABNORMAL ECG Electronically Signed On 12-21-2020 14:06:56 CDT by Bennie Navarrete D.O.
[2020-12-21 14:16] LABS: Basophils Percent Auto 0.4 % (0.2-1.2); Eosinophils Absolute Auto 0.1 K/mm3 (0-0.3); Eosinophils Percent Auto 1.6 % (0-4.4); Hematocrit 27.2 % (37.0-47.0); Hemoglobin 8.1 g/dL (12.0-15.0); Immature Granulocyte Absolute 0.04 K/mm3 (0.00-0.031); Immature Granulocyte Percent A 0.5 % (0-0.5); Lymphocytes Absolute Auto 1.08 K/mm3 (0.9-3.2); Lymphocytes Percent Auto 14.4 % (18.3-44.2); Mean Corpuscular HGB Conc 29.8 g/dl (32-36); Mean Corpuscular Hemoglobin 28.4 pg (26-34); Mean Corpuscular Volume 95.4 fl (80-100); Mean Platelet Volume 9.8 fl (7.4-10.4); Monocytes Absolute Auto 0.6 K/mm3 (0.1-0.6); Neutrophils Absolute Auto 5.6 K/mm3 (1.3-6.7); Neutrophils Percent Auto 75.1 % (45.5-73.1); Platelet Count Result 277 k/mm3 (150-375); Red Blood Count 2.85 M/mm3 (4.2-5.4); Red Cell Distribution Width 13.5 % (11.5-14.5); White Blood Count 7.5 K/mm3 (4.5-10.0)
[2020-12-21 14:28] LABS: Anion Gap 5 mmol/L (8-16); Blood Urea Nitrogen 10 mg/dL (7-17); Calcium 9.2 mg/dL (8.4-10.2); Carbon Dioxide 33 mmol/L (22-30); Chloride 105 mmol/L (98-107); Estimated CRCL calculation 57 ml/min; Estimated Glomerular Filt Rate 46; Glucose 102 mg/dL (65-105); Potassium 3.7 mmol/L (3.4-5.0); Sodium 143 mmol/L (137-145)
[2020-12-21 14:44] LABS: Platelet Estimate Adequate (Adequate)
[2020-12-21 14:45] LABS: Hypochromasia 1+ (NORMAL)
--- NOTE | 2020-12-21 17:37 | ED.SOB ---
HPI - SOB/Dyspnea General Chief Complaint: Shortness of Breath/Dyspnea Stated Complaint: coughing, sob Time Seen by Provider: 12/21/20 17:02 Source: patient Mode of arrival: wheelchair Limitations: no limitations History of Present Illness HPI Narrative: This is a 60 year old female that presents to the ER for shortness of breath since yesterday. Associated with wheezing and cough with thick sputum. Reports history of COPD. Sees pulmonology [facility] in [facility]. Is chronically on 2L [place]. Oxygen saturation is normal on this currently. Denies fever or chest pain. Related Data Home Medications Medication Instructions Recorded Confirmed cyanocobalamin (vitamin B-12) 1,000 mcg PO DAILY 07/28/20 12/06/20 1,000 mcg tablet vitamins A,C,D-nppa-zqqxce 14,320 1 cap PO BID 08/10/20 12/06/20 unit-226 mg-200 unit capsule fluticasone propion-salmeterol 1 inh INHALATION Q12H 11/07/20 12/06/20 [Wixela Inhub] Allergies Allergy/AdvReac Type Severity Reaction Status Date / Time ioversol Allergy Unknown Urticaria Verified 12/21/20 17:05 Sulfa (Sulfonamide Allergy Unknown Joint pain Verified 12/21/20 17:05 Antibiotics) sulfanilamide Allergy Unknown Unknown Verified 12/21/20 17:05 cefuroxime AdvReac Unknown Fever Verified 12/21/20 17:05 hydromorphone AdvReac Unknown Low blood Verified 12/21/20 17:05 pressure meperidine AdvReac Unknown Low blood Verified 12/21/20 17:05 pressure oxycodone AdvReac Unknown INCREASED Verified 12/21/20 17:05 PAIN levofloxacin [From Levaquin] AdvReac Muscle Pain Verified 12/21/20 17:05 Contrast Media Allergy Intermediate hives Uncoded 12/21/20 17:05 Review of Systems Review of Systems: Narrative: CONSTITUTIONAL: Denies fever CARDIOVASCULAR: Denies chest pain RESPIRATORY: Reports cough and dyspnea. All systems reviewed & are unremarkable except as noted in HPI and below PMFSH Past Medical History Medical History (Updated 12/21/20 @ 19:09 by Cornelia Malave PA-C) Abnormal fasting glucose Acute bronchitis Acute pain of left knee Benign essential HTN BMI greater than 40 Cellulitis, leg Chronic bilateral low back pain with right-sided sciatica Chronic depression Chronic neck pain Chronic pain in left foot COPD (chronic obstructive pulmonary disease) Dry skin Edema of both lower extremities due to peripheral venous insufficiency Gastro-esophageal reflux disease without esophagitis Headache Hypertension Hypokalemia Lung malignancy non-small cell lung cancer and left lower lobe treated with radiation treatment December 28, 2016 Nausea and vomiting Obstructive sleep apnea Osteoarthritis of right hip Stage 4 very severe COPD by GOLD classification pulmonary function study on March 13, 2019 reveals very severe COPD Venous stasis dermatitis of both lower extremities Venous stasis ulcer Venous ulcer of leg Vertigo Vitamin B12 deficiency anemia Vitamin D deficiency, unspecified Surgical History Surgical History History of appendectomy History of cholecystectomy History of nasal surgery Family History Family History Mother Diabetes mellitus Acute myocardial infarction, Onset Age: 76 Family history of coronary artery disease Family history of chronic obstructive pulmonary disease Hypertension Cerebrovascular accident Sibling Hypertension Grandparent Hypertension, Onset Age: 64 Cerebrovascular accident, Onset Age: 64 Father Family history of cardiovascular disease Patient's father is in good health Epilepsy Social History Social History Years smoked: 40 Smoking status: Former smoker Smoking end date: 03/15/16 Alcohol intake: former Substance use: never Gender identity (if verbalized by the patient): Female Spiritual care concerns: No Exam Narrative: Exam Narrative: GENE
[2020-12-21] MEDS: IPRATROPIUM BR 0.02% INH SOLN 0.5 MG/2.5 ML VIAL INHALATION (17:48)
[2020-12-21] MEDS: ALBUTEROL SULFATE NEB 2.5 MG/0.5 ML INH 5 MG INHALATION (17:48)
[2020-12-21] MEDS: methylPREDNISolone SOD SUCC 125 MG VIAL IV PUSH (17:56)
[2020-12-21 17:58] LABS: Alveolar/Arterial O2 Gradient 71.4 mmHg; Base Excess ABG 5.6 mEq/l (+/-2.0); Carboxyhemoglobin 0.6 % THb (0-2.0); Device NASAL CANNULA; Fractional Inspired Oxygen 28 %; HCO3 ABG 31.2 mEq/l (22.0-26.0); Methemoglobin ABG 0.2 %THb (0-1.5); Modified Allen's Test Pass; Oxygen Content ABG 13.5 %vol (16.0-22.0); Oxygen Saturation ABG 93.4 % (95.0-100.0); Oxyhemoglobin 92.2 % THb (90.0-100.0); PCO2 ABG 51.1 mmHg (35.0-45.0); PO2 ABG 67.9 mmHg (80.0-100.0); PO2 FiO2 Ratio Arterial Blood 2.42 %; Site Drawn LEFT RADIAL; Total Hemoglobin 10.4 g/dL (12.0-18.0); pH ABG 7.404 (7.350-7.450)
[2020-12-21] MEDS: DOXYCYCLINE HYCLATE 100 MG TABLET PO (19:31)
== END 2020-12-21 19:42 | disposition home or self-care (01) ==
PROVIDERS: Physician Assistant; Emergency Provider Emergency Medicine; PCP Family Medicine
DX: J44.1 Chronic obstructive pulmonary disease with (acute) exacerbation (principal); Z99.81 Dependence on supplemental oxygen; Z87.891 Personal history of nicotine dependence; I10 Essential (primary) hypertension; I87.2 Venous insufficiency (chronic) (peripheral); I83.029 Varicose veins of left lower extremity with ulcer of unspecified site; K21.9 Gastro-esophageal reflux disease without esophagitis; M16.11 Unilateral primary osteoarthritis, right hip; G47.33 Obstructive sleep apnea (adult) (pediatric); D51.9 Vitamin B12 deficiency anemia, unspecified; E55.9 Vitamin D deficiency, unspecified; Z92.3 Personal history of irradiation; Z85.118 Personal history of other malignant neoplasm of bronchus and lung
CPT/HCPCS: 36415; 36600; 71046; 80048; 82375; 82805; 83050; 85025; 93005; 94640; 96374; 99284; A9270; J2930

== ENCOUNTER 2020-12-29 12:34 | Outpatient (NON) | payer OTHER, SELFPAY ==
[2020-12-29 13:07] LABS: Anion Gap 5 mmol/L (8-16); Blood Urea Nitrogen 15 mg/dL (7-17); Calcium 9.3 mg/dL (8.4-10.2); Carbon Dioxide 34 mmol/L (22-30); Chloride 104 mmol/L (98-107); Estimated Glomerular Filt Rate 56; Glucose 114 mg/dL (65-105); Potassium 3.9 mmol/L (3.4-5.0); Sodium 143 mmol/L (137-145)
== END 2020-12-29 12:35 | disposition home or self-care (01) ==
PROVIDERS: PCP Family Medicine; Visit Provider Family Medicine
DX: Z48.00 Encounter for change or removal of nonsurgical wound dressing (principal); L03.116 Cellulitis of left lower limb; I87.2 Venous insufficiency (chronic) (peripheral); I83.022 Varicose veins of left lower extremity with ulcer of calf; N17.8 Other acute kidney failure
CPT/HCPCS: 80048

== ENCOUNTER 2021-01-19 07:16 | Outpatient (RCR) | payer OTHER, SELFPAY ==
[2020-10-31 16:35] VITALS: BMI 40.0
--- NOTE | 2020-10-31 16:50 | PCWOUND ---
WOCN NOTE Patient called in two hours later and states her shoe and compression wrap are soaked. patient instructed to remove compression wrap and leave ribbon wick in place, place heavy absorbing pads on leg and secure with elastic wraps and change as often as needed. suggested she canuse baby diapers.
== END 2021-01-29 23:59 | disposition home or self-care (01) ==
LOC: ANHWOC 07:16
PROVIDERS: PCP Family Medicine; Visit Provider Nurse Practitioner Family
DX: I83.009 Varicose veins of unspecified lower extremity with ulcer of unspecified site (principal); L97.909 Non-pressure chronic ulcer of unspecified part of unspecified lower leg with unspecified severity
CPT/HCPCS: 29581; 99212; 99213; G0463

== ENCOUNTER 2021-02-21 13:43 | Outpatient (RCR) | payer OTHER, SELFPAY ==
--- NOTE | 2021-03-17 13:59 | PCWOUND ---
WOCN NOTE patient called to cancel appointment for 03/30/21 as wound is now 100% closed. Patient was seen by her Home Health nurse today who also discharged her from their services. Patient will contact wound center for any questions or concerns.
== END 2021-03-17 14:02 | disposition home or self-care (01) ==
LOC: ANHWOC 13:43
PROVIDERS: PCP Family Medicine; Visit Provider Family Medicine
DX: I83.009 Varicose veins of unspecified lower extremity with ulcer of unspecified site (principal); L97.909 Non-pressure chronic ulcer of unspecified part of unspecified lower leg with unspecified severity
CPT/HCPCS: 29581

== ENCOUNTER 2021-04-07 14:17 | Emergency (ER) | payer OTHER, SELFPAY ==
[2021-04-07 15:05] VITALS: BP 153/67; PULSE 103; RESP 18; TEMP 36.3; O2SAT 100
--- NOTE | 2021-04-07 16:34 | ED.ALLEREA ---
HPI - Allergic Reaction General Chief complaint: Allergic Reaction Stated complaint: allergic reaction/lower legs Time Seen by Provider: 04/07/21 16:05 Source: patient Mode of arrival: ambulatory Limitations: no limitations History of Present Illness HPI narrative: Patient is a 60-year-old female complaining of rash on bilateral lower extremity, thigh area, described as burning started yesterday but states that she had the same rash last week on her lower legs which was treated by her primary care physician with steroids and Zyrtec and eventually resolved, but this time the rash is now on her thighs and worse. Patient states that it was her compression hose that possibly caused rash. Patient denies any facial, lip, tongue or throat swelling. Patient denies any chest pain or shortness of breath. Patient denies any fever or chills. Related Data Home Medications Medication Instructions Recorded Confirmed cyanocobalamin (vitamin B-12) 1,000 mcg PO DAILY 07/28/20 02/21/21 1,000 mcg tablet vitamins A,C,F-bitp-haxnij 14,320 1 cap PO BID 08/10/20 02/21/21 unit-226 mg-200 unit capsule fluticasone propion-salmeterol 1 inh INHALATION Q12H 11/07/20 02/21/21 [Wixela Inhub] Allergies Allergy/AdvReac Type Severity Reaction Status Date / Time ioversol Allergy Unknown Urticaria Verified 04/07/21 17:58 Sulfa (Sulfonamide Allergy Unknown Joint pain Verified 04/07/21 17:58 Antibiotics) sulfanilamide Allergy Unknown Unknown Verified 04/07/21 17:58 cefuroxime AdvReac Unknown Fever Verified 04/07/21 17:58 hydromorphone AdvReac Unknown Low blood Verified 04/07/21 17:58 pressure meperidine AdvReac Unknown Low blood Verified 04/07/21 17:58 pressure oxycodone AdvReac Unknown INCREASED Verified 04/07/21 17:58 PAIN levofloxacin [From Levaquin] AdvReac Muscle Pain Verified 04/07/21 17:58 Contrast Media Allergy Intermediate hives Uncoded 04/07/21 17:58 Review of Systems Review of Systems: All systems reviewed & are unremarkable except as noted in HPI and below Constitutional: Constitutional: Denies body ache(s), Denies chills, Denies excessive sweating, Denies fatigue, Denies fever(s), Denies headache(s), Denies lethargy, Denies malaise, Denies weakness and Denies weight loss Eyes: Eyes: Denies blurry vision, Denies change in vision and Denies loss of vision ENT: Denies dizziness, Denies ear discharge, Denies headache(s), Denies lip swelling, Denies epistaxis, Denies nasal congestion, Denies neck pain, Denies throat swelling and Denies tongue swelling Cardiovascular: Cardiovascular: Denies chest pain, Denies chest pain at rest, Denies chest pain with activity, Denies diaphoresis, Denies rapid heart rate, Denies edema, Denies irregular heart rhythm, Denies lightheadedness, Denies palpitations, Denies dyspnea and Denies dyspnea on exertion Respiratory: Respiratory: Denies chest congestion, Denies cough, Denies hemoptysis, Denies dyspnea and Denies dyspnea on exertion Gastrointestinal: Gastrointestinal: Denies abdominal pain, Denies melena, Denies hematochezia, Denies diarrhea, Denies nausea, Denies vomiting and Denies hematemesis Musculoskeletal: Musculoskeletal: Denies abnormal gait, Denies deformity, Denies joint swelling, Denies limited range of motion, Denies neck pain and Denies numbness Neurologic: Denies Abnormal speech present, Denies abnormal gait, Denies confusion, Denies dizziness, Denies headache(s), Denies focal weakness, Denies loss of vision, Denies numbness, Denies Other visual disturbances, Denies Sensory deficit (Neuro) and Denies weakness Psychiatric: Psychiatric: Denies confusion, Denies depression, Denies auditory hallucinations, Denies homicidal ideation and Denies suicidal ideation Endocrine: Endocrine: Denies cold intolerance, Denies excessive sweating, Denies fatigue, Denies heat intolerance and Denies palpitations Hematologic/Lymphatic: Hematologic/Lymphatic: Denies easy bleeding and Denies easy bruising
[2021-04-07 16:53] LABS: Basophils Absolute Auto 0.1 K/mm3 (0.0-0.1); Basophils Percent Auto 0.8 % (0.2-1.2); Eosinophils Absolute Auto 0.1 K/mm3 (0-0.3); Eosinophils Percent Auto 1.6 % (0-4.4); Hematocrit 36.5 % (37.0-47.0); Hemoglobin 11.4 g/dL (12.0-15.0); Immature Granulocyte Absolute 0.04 K/mm3 (0.00-0.031); Immature Granulocyte Percent A 0.5 % (0-0.5); Lymphocytes Absolute Auto 1.58 K/mm3 (0.9-3.2); Lymphocytes Percent Auto 20.6 % (18.3-44.2); Mean Corpuscular HGB Conc 31.2 g/dl (32-36); Mean Corpuscular Hemoglobin 28.1 pg (26-34); Mean Corpuscular Volume 90.1 fl (80-100); Mean Platelet Volume 9.4 fl (7.4-10.4); Monocytes Absolute Auto 0.5 K/mm3 (0.1-0.6); Monocytes Percent Auto 6.9 % (2.6-8.5); Neutrophils Absolute Auto 5.3 K/mm3 (1.3-6.7); Neutrophils Percent Auto 69.6 % (45.5-73.1); Platelet Count Result 315 k/mm3 (150-375); Red Blood Count 4.05 M/mm3 (4.2-5.4); Red Cell Distribution Width 13.2 % (11.5-14.5); White Blood Count 7.7 K/mm3 (4.5-10.0)
[2021-04-07 17:02] LABS: Alanine Aminotransferase 20 U/L (4-35); Albumin Level 4.3 g/dL (3.5-5.1); Alkaline Phosphatase 88 U/L (38-126); Anion Gap 8 mmol/L (8-16); Aspartate Amino Transferase 31 U/L (14-36); Bilirubin,Total 0.5 mg/dL (0.2-1.3); Blood Urea Nitrogen 24 mg/dL (7-17); Calcium 9.4 mg/dL (8.4-10.2); Carbon Dioxide 32 mmol/L (22-30); Chloride 102 mmol/L (98-107); Estimated CRCL calculation 73 ml/min; Estimated Glomerular Filt Rate > 60; Glucose 102 mg/dL (65-110); Potassium 3.3 mmol/L (3.4-5.0); Sodium 142 mmol/L (137-145)
[2021-04-07] MEDS: methylPREDNISolone SOD SUCC 125 MG VIAL IV PUSH (17:49)
[2021-04-07] MEDS: FAMOTIDINE 20 MG/2 ML VIAL IV PUSH (17:50)
[2021-04-07] MEDS: diphenhydrAMINE HCl INJ 50 MG/ML VIAL 25 MG IV PUSH (17:56)
[2021-04-07 18:01] VITALS: BP 113/62; PULSE 104; RESP 18; TEMP 36.7; O2SAT 100
[2021-04-07 19:50] VITALS: BP 123/72; PULSE 98; RESP 18; TEMP 36.6; O2SAT 99
== END 2021-04-07 19:52 | disposition home or self-care (01) ==
PROVIDERS: Emergency Provider Emergency Medicine; PCP Family Medicine
DX: R21 Rash and other nonspecific skin eruption (principal); I10 Essential (primary) hypertension; J44.9 Chronic obstructive pulmonary disease, unspecified; I87.2 Venous insufficiency (chronic) (peripheral); G47.33 Obstructive sleep apnea (adult) (pediatric); K21.9 Gastro-esophageal reflux disease without esophagitis; E55.9 Vitamin D deficiency, unspecified; D51.9 Vitamin B12 deficiency anemia, unspecified; M16.11 Unilateral primary osteoarthritis, right hip; Z85.118 Personal history of other malignant neoplasm of bronchus and lung; Z92.3 Personal history of irradiation; Z87.891 Personal history of nicotine dependence
CPT/HCPCS: 36415; 80053; 85025; 96374; 96375; 99284; J1200; J2930

== ENCOUNTER 2021-05-08 14:00 | Outpatient (RCR) | payer OTHER, SELFPAY ==
--- NOTE | 2021-04-12 15:01 | PTOPEVAL ---
Addendum entered by Olimpia Miranda, PT 04/12/21 15:09: Treatment to also include R BRANDT. Original Note: PHYSICAL THERAPY EVALUATION AND PLAN OF CARE 04-12-21 Thank you for referring Ricardo Mendez [facility] She is scheduled to be seen for therapy? 3 x/week for 4 weeks. Please review, sign, date and return this plan of care TATE. I agree with and certify that the following plan of care is medically necessary. Referring Physician Date Attending Provider: Perry Pang MD PT Outpatient Evaluation Document 04/12/21 13:50 RONNY (Rec: 04/12/21 15:01 RONNY [id number]) Outpatient Past Medical History Past Medical History Source of Past Medical History Recalled from Previous Visit, Confirmed with Patient/Family Neurological History Hx Neurological Disorders No Significant History Cardiovascular History Hx Hypercholesterolemia Yes: meds Hx Hypertension Yes: monitoring- taken off meds due to kidney issues Respiratory History Hx Asthma Yes Hx Chronic Obstructive Pulmonary Disease Yes (COPD) Hx Emphysema Yes: oxygen @ 2 L/min Hx Sleep Apnea Yes Hx Other Respiratory Disorders Yes: allergy and sinus issues Gastrointestinal History Hx Appendectomy Yes Hx Cholecystectomy Yes Hx Hemorrhoids Yes Hx Irritable Bowel Yes Genitourinary History Hx Other Genitourinary Disorders Yes: Frequent urination Musculoskeletal History Hx Arthritis Yes: Right hip, lower back Hx Fractures Yes: 5th toe left foot Hematological History Hx Hematological Disorders No Significant History Endocrine History Hx Endocrine Disorders No Significant History HEENT History Hx HEENT Disorders No Significant History Integumentary History Hx Cellulitis Yes: Left leg Reproductive History Hx Reproductive Disorders No Significant History Psychosocial History Hx Depression Yes Pain History Has Past Pain Affected Your Daily Life Yes Anesthesia History Hx Other Anesthesia Reactions Yes: Decreased respirations Other History Hx Radiation Therapy Yes: Nodule on left lower lobe , never was confirmed as cancer but tx as so. Evaluation Information Problem Diagnosis L LE cellulitis/ peripheral venous insufficiency Onset September 2020 Prior Level of Function Activity Level (Last 3 Months) Occupation not working/disability Activity of Daily Living Ability Independent Indoor/Home Mobility Independent Home Setting Home Type House,Multiple Levels Environmental Barriers
--- NOTE | 2021-04-17 13:40 | PCPTNOTE ---
Patient called & cancelled scheduled appointment this date due to SOB
--- NOTE | 2021-04-21 11:59 | PCPTNOTE ---
Update PT plan of care: 04-21-21 PT treatment to include R LE lymphedema. Dr. Prashanth de la cruz
--- NOTE | 2021-05-01 10:40 | PCPTNOTE ---
Pt called and canceled due to hives on her legs.
--- NOTE | 2021-05-03 07:50 | PCPTNOTE ---
Pt called and cancelled due to hives on both legs for today's appt.
--- NOTE | 2021-05-09 11:17 | PCPTNOTE ---
PHYSICAL THERAPY DISCHARGE 05-09-21 Attending Provider: Perry Pang MD Patient:Ricardo Mendez Date of :1960 Ms. Mendez has received 7 PT sessions from April 12 to May 08, for the treatment of B LE lymphedema. She called and canceled 3 appointments due to increased SOB and rash over legs. Circumferential measurements of her legs, from the bottom of the foot up to 68 cm: R is 679.4 cm and L is 686.1 cm. Compared to the initial evaluation, her R leg increased by 16.6 cm and L leg decreased by 5.3 cm. With both lower legs, there is no longer any fibrotic tissue but continues to have the redness and rash present over the thighs, lower legs and feet. The rash has red, flat splotches and she reports they continue to itch. Ricardo is wearing compression knee highs on both lower legs, Mediven plus, 20-30 mmHg. She is independent donning/doffing them and reports they are comfortable to wear. The goals were met for education about lymphedema, appropriate compression garments obtained, skin integrity, but did not achieve the circumferential measurement goal. [facility]. Please review, sign, date and return this discharge summary TATE. I have been updated about the patient's current status and I agree with discharge from the above service at this time. Referring Physician Date
== END 2021-05-09 15:11 | disposition home or self-care (01) ==
LOC: ANHPT 14:00
PROVIDERS: PCP Family Medicine; Visit Provider Family Medicine
DX: I87.2 Venous insufficiency (chronic) (peripheral) (principal); L03.116 Cellulitis of left lower limb; R53.81 Other malaise
CPT/HCPCS: 29581; 97140; 97161

== ENCOUNTER 2023-07-29 13:12 | Inpatient (IN) | payer OTHER, SELFPAY ==
[2023-07-29] VITALS (11 sets, daily range): BP systolic 102–132; BP diastolic 39–66; PULSE 110–128; RESP 16–24; TEMP 36.3–36.6; O2SAT 93–100; BMI 35.9
--- NOTE | ~2023-07-29 | NM_ITS ---
EXAMINATION: NM pulmonary perfusion DATE: 07/30/2023 12:15 INDICATION: Shortness of breath. COVID positive with elevated d-dimer. TECHNIQUE: 5.2 mCi Tc-99m MAA by intravenous route. Scintigraphic images of the chest were obtained. COMPARISON: Chest radiograph dated 07/29/2023 FINDINGS: There are multiple perfusion defects throughout both lungs. The largest include moderate to large def ects at the lingula, the anterior and posterior segments of the left upper lobe, anterobasilar segmen t of the left lower lobe, the posterior segment of the right upper lobe and the right middle lobe, al l of which are without evident corresponding airspace opacities in the prior radiograph.. IMPRESSION: 1. High probability for pulmonary embolism. Reviewed, dictated and finalized at location A. F REGISTERED NURSE
--- NOTE | ~2023-07-29 | US_ITS ---
EXAMINATION: US venous doppler [facility] DATE: 07/29/2023 18:48 INDICATION: Shortness of breath TECHNIQUE: Azevedo scale images without and with compression and Doppler images of the bilateral lower e xtremity veins were obtained. COMPARISON: None FINDINGS: The right common femoral vein, profunda femoral vein, femoral vein, popliteal vein, peroneal trunk, p osterior tibial veins, and greater saphenous vein are patent. There is thrombosis in the left peroneal vein. The left common femoral vein, profunda femoral vein, f emoral vein, popliteal vein, posterior tibial veins, and greater saphenous vein are patent. IMPRESSION: 1. Left peroneal vein thrombosis. These findings were discussed with Dr. Arpan Ceron MD in the Emergency Department at 1857 hours on 07/29/2023. Reviewed, dictated and finalized at location F. AL CAR FERRY DRIVER IMPRESSION: 1. Left peroneal vein thrombosis. These findings were discussed with Dr. Arpan Ceron MD in the Emergency De partment at 1857 hours on 07/29/2023.
--- NOTE | ~2023-07-29 | XR_ITS ---
EXAMINATION: XR chest 1V portable INDICATION: Shortness of breath TECHNIQUE: Portable AP chest at 1524 hours COMPARISON: 12/21/2020 FINDINGS: The lungs are hyperinflated but free of acute opacities. There is atelectasis or scarring o f the left lung base. No pleural effusion or pneumothorax. The cardiomediastinal silhouette is normal . IMPRESSION: 1. Hyperinflation without acute cardiopulmonary abnormality. Reviewed, dictated and finalized at location F. ESS CUTTER
--- NOTE | 2023-07-29 13:46 | ECG_ITS ---
Measurements Intervals [place] Rate: 119 P: 61 ND: 177 QRS: 22 QRSD: 126 T: 56 QT: 319 QTc: 449 Interpretive Statements SINUS TACHYCARDIA RIGHT BUNDLE BRANCH BLOCK BASELINE ARTIFACT- I, II, III, AVR, AVL, AVF, V1-V6 ABNORMAL ECG COMPARED TO ECG 12/21/2020 14:05:14 RIGHT BUNDLE-BRANCH BLOCK NOW PRESENT Electronically Signed On 07-29-2023 14:11:11 MATERIALS DIRECTOR by Bennie Navarrete D.O.
[2023-07-29 14:55] LABS: Basophils Percent Auto 0.4 % (0.2-1.2); Hematocrit 32.1 % (37.0-47.0); Hemoglobin 9.9 g/dL (12.0-15.0); Immature Granulocyte Absolute 0.05 K/mm3 (0.00-0.031); Immature Granulocyte Percent A 0.9 % (0-0.5); Lymphocytes Absolute Auto 0.21 K/mm3 (0.9-3.2); Lymphocytes Percent Auto 3.9 % (18.3-44.2); Mean Corpuscular HGB Conc 30.8 g/dl (32-36); Mean Corpuscular Hemoglobin 26.9 pg (26-34); Mean Corpuscular Volume 87.2 fl (80-100); Mean Platelet Volume 9.6 fl (7.4-10.4); Monocytes Absolute Auto 0.7 K/mm3 (0.1-0.6); Monocytes Percent Auto 12.8 % (2.6-8.5); Neutrophils Absolute Auto 4.4 K/mm3 (1.3-6.7); Platelet Count Result 213 k/mm3 (150-375); Red Blood Count 3.68 M/mm3 (4.2-5.4); Red Cell Distribution Width 13.3 % (11.5-14.5); White Blood Count 5.4 K/mm3 (4.5-10.0)
[2023-07-29 15:04] LABS: Alanine Aminotransferase 26 U/L (6-35); Albumin Level 3.5 g/dL (3.5-5.1); Alkaline Phosphatase 91 U/L (38-126); Anion Gap 7 mmol/L (8-16); Aspartate Amino Transferase 32 U/L (14-36); Bilirubin,Total 0.5 mg/dL (0.2-1.3); Blood Urea Nitrogen 10 mg/dL (7-17); Calcium 8.3 mg/dL (8.4-10.2); Carbon Dioxide 31 mmol/L (22-30); Chloride 95 mmol/L (98-107); Estimated CRCL calculation 77 ml/min; Estimated Glomerular Filt Rate > 60; Glucose 111 mg/dL (65-110); Potassium 4.2 mmol/L (3.4-5.0); Sodium 133 mmol/L (137-145)
--- NOTE | 2023-07-29 15:27 | ED.GENADULT ---
HPI - General Adult General Chief complaint: Shortness of Breath/Dyspnea Stated complaint: sob wheezing Time Seen by Provider: 07/29/23 15:05 62-year-old female presenting to emergency department for evaluation of increased right-sided chest pain. Patient is currently following up with [facility] for left-sided lung cancer. Patient is receiving both chemo and radiation therapy patient gets her radiation therapy Saturday through Saturday but did not go to radiation therapy today because she was not feeling well. Patient's last chemotherapy was on July 18. Related Data Home Medications Medication Instructions Recorded Confirmed vitamins A,C,J-ffit-qsxzwh 4,296 1 cap PO BID 08/10/20 07/02/23 mcg-226 mg-90 mg capsule (PreserVision AREDS) benzonatate 100 mg capsule 100 mg PO TID 07/29/23 07/29/23 famotidine 40 mg tablet 40 mg PO DAILY 07/29/23 07/29/23 hydrocodone 10 mg-acetaminophen 1 tablet PO Q4H PRN Pain (Scale 07/29/23 07/29/23 325 mg tablet Score 4-6) lorazepam 0.5 mg tablet 0.5 mg PO BID PRN Anxiety 07/29/23 07/29/23 prochlorperazine maleate 10 mg 10 mg PO Q6H PRN Nausea And 07/29/23 07/29/23 tablet Vomiting Allergies Allergy/AdvReac Type Severity Reaction Status Date / Time ioversol Allergy Unknown Urticaria Verified 07/29/23 13:30 Sulfa (Sulfonamide Allergy Unknown Joint pain Verified 07/29/23 13:30 Antibiotics) sulfanilamide Allergy Unknown Unknown Verified 07/29/23 13:30 clindamycin AdvReac Intermediate Esophagitis Verified 07/29/23 13:30 cefuroxime AdvReac Unknown Fever Verified 07/29/23 13:30 hydromorphone AdvReac Unknown Low blood Verified 07/29/23 13:30 pressure meperidine AdvReac Unknown Low blood Verified 07/29/23 13:30 pressure oxycodone AdvReac Unknown INCREASED Verified 07/29/23 13:30 PAIN levofloxacin [From Levaquin] AdvReac Muscle Pain Verified 07/29/23 13:30 Contrast Media Allergy Intermediate hives Uncoded 07/29/23 13:30 Review of Systems Review of Systems: All systems reviewed & are unremarkable except as noted in HPI and below [facility] Past Medical History Medical History (Updated 07/29/23 @ 19:55 by Arpan Ceron MD) Abnormal fasting glucose Glucose 95 with hemoglobin A1c 5.2 on 11/07/2021. Glucose 99 on 06/25/2022. Acute bronchitis Acute non-recurrent maxillary sinusitis Acute pain of left knee Admission for fitting and adjustment of vascular catheter SEEMA (acute kidney injury) Benign essential HTN BMI 37.0-37.9, adult BMI greater than 40 Candidiasis of esophagus Cellulitis of left lower leg Cellulitis of right elbow Cellulitis, leg Chronic bilateral low back pain with right-sided sciatica Chronic depression Chronic kidney disease (CKD) stage G3b/A1, moderately decreased glomerular filtration rate (GFR) between 30-44 mL/min/1.73 square meter and albuminuria creatinine ratio less than 30 mg/g (05/24/21) BUN 20, creatinine 1.52 with GFR 37, decreased from 67. BUN 15 with creatinine 0.99 with GFR normal at 61 on 11/07/2021 Chronic neck pain Chronic pain in left foot Chronic respiratory failure Cutaneous vasculitis Dry skin DVT prophylaxis Edema of both lower extremities due to peripheral venous insufficiency Gastro-esophageal reflux disease without esophagitis Headache Hypertension Hypokalemia potassium normal at 4.0 on 11/07/2021. Infected cyst of skin Joint pain Left otitis externa Lung malignancy non-small cell lung cancer and left lower lobe treated with radiation treatment December 28, 2016. CT of the chest 10/13/2021 with slight improved crease in 1.8 x 1.3 cm left upper lobe nodule with new intermediate lesion left lower lobe 0.9 cm with recheck in 3 months. Morbid obesity with BMI of 40.0-44.9, adult Mycobacterium avium complex (~04/2023) Nausea and vomiting Obesity (BMI 30-39.9) Obstructive sleep apnea Olecranon bursitis of right elbow Oral pharyngeal candidiasis Osteoarthritis of right hip Physical deconditioning Pigmented skin lesion suspicious for mal
[2023-07-29 15:58] LABS: Influenza A QL RT-PCR Negative (Negative); Influenza B QL RT-PCR Negative (Negative); RSV RNA, RT-PCR Negative (Negative); SARS-CoV-2 RNA PCR Positive (Negative)
[2023-07-29] MEDS: SODIUM CHLORIDE 0.9% IV 1,000 ML 999 ML IV CONT (16:27)
--- NOTE | 2023-07-29 16:34 | PC.NURSE ---
pt states she took her home vicodin for pain at 1600.
[2023-07-29 16:53] LABS: D Dimer 1.51 ug/mL (<0.48)
[2023-07-29] MEDS: ALBUTEROL SULFATE NEB 2.5 MG/3 ML INH INHALATION (17:47)
[2023-07-29 18:31] LABS: NT Pro B Type Natriuretic Pept 401 pg/mL (19.9-100); Troponin I < 0.012 ng/mL (0.000-0.034)
[2023-07-29] MEDS: ENOXAPARIN 100 MG/ML SYRINGE SUB-Q (19:27)
--- NOTE | 2023-07-29 20:12 | ADMGEN ---
This patient, Ricardo Mendez, was admitted to IMU Room 214-01. Patient/family oriented to hospital policies and general routines including ID bracelet, bed and alarms, visiting hours, pain management, procedures, bathroom and other care routines, personal items, smoking policy, room service/diet, and visiting hours. Information on how to activate the Rapid Response Team has been discussed. Patient/Family are encouraged to report perceived risks to care and to ask questions if they do not understand what they are told or what they should do.
[2023-07-29] MEDS: HYDROcodone/acetaminophen (*CRX) 10-325 MG TABLET 1 TAB PO (23:03)
[2023-07-29] MEDS: ALBUTEROL SULFATE (*SP) AEROSOL 1 PUFF 2 PUFF INHALATION (23:20)
--- NOTE | 2023-07-29 23:21 | PM.IMHP ---
H&P: HPI History of Present Illness Date/Time: 07/29/23 23:40 Chief Complaint: Shortness of breath and right rib pain. Narrative: This is a 62-year-old female with chronic obstructive pulmonary disease, chronic respiratory failure, obstructive sleep apnea, hypertension, and lung cancer for which she is currently receiving chemotherapy who presented to the emergency department via private vehicle for evaluation of shortness of breath. The patient provides the following history. She endorses increasing dyspnea on exertion and more productive cough from baseline over the past 1 week or so. Daughter tested positive for COVID last week and she was positive today for SARS-CoV-2 by PCR. More recently she has developed pain in the right ribs which sounds pleuritic. Appetite has not been great. She has chronic lower extremity edema which is unchanged. She denies exertional chest pain, palpitations, sensations of racing heart, syncope, near syncope, nausea, vomiting, fever, chills, sweats, and sore throat. She was afebrile on arrival to the ED. she has been persistently tachycardic in the 1 teens. She is currently on 3 L nasal cannula with an SpO2 in the upper 90s. Chest x-ray showed hyperinflation but no infiltrates. D-dimer was elevated but she was unable to get a chest CTA due to a contrast allergy and fact she even refuses pretreatment, telling me that the hives were so bad she is not willing to try it. Lower extremity venous Doppler ultrasounds were positive for left peroneal DVT. In the ED she received a nebulizer treatment dexamethasone, and a therapeutic dose of Lovenox. She is being admitted in this setting for further treatment. Review of Systems Review of Systems: Twelve systems were reviewed and are negative except for as per HPI. [facility] Past Medical History Medical History (Updated 07/29/23 @ 23:26 by Joy Jones PA-C) Abnormal fasting glucose Glucose 95 with hemoglobin A1c 5.2 on 11/07/2021. Glucose 99 on 06/25/2022. Chronic bilateral low back pain with right-sided sciatica Chronic depression Chronic kidney disease (CKD) stage G3b/A1, moderately decreased glomerular filtration rate (GFR) between 30-44 mL/min/1.73 square meter and albuminuria creatinine ratio less than 30 mg/g (05/24/21) BUN 20, creatinine 1.52 with GFR 37, decreased from 67. BUN 15 with creatinine 0.99 with GFR normal at 61 on 11/07/2021 Chronic neck pain Chronic obstructive pulmonary disease Chronic pain in left foot Chronic respiratory failure Cutaneous vasculitis Gastro-esophageal reflux disease without esophagitis Headache Hypertension Lung malignancy non-small cell lung cancer and left lower lobe treated with radiation treatment December 28, 2016. CT of the chest 10/13/2021 with slight improved crease in 1.8 x 1.3 cm left upper lobe nodule with new intermediate lesion left lower lobe 0.9 cm with recheck in 3 months. Mycobacterium avium complex (~04/2023) Obstructive sleep apnea Osteoarthritis of right hip Pigmented skin lesion suspicious for malignant neoplasm (~2021) left chest along the medial base of the breast. 4 mm removed by shave biopsy 03/20/2022. Benign irritated seborrheic keratosis by biopsy. Purpura Stage 4 very severe COPD by GOLD classification pulmonary function study on March 13, 2019 reveals very severe COPD Urticaria Venous stasis dermatitis of both lower extremities Venous stasis ulcer Vertigo Vitamin B12 deficiency anemia B12 level low at 319 with folic acid normal at 12.8 and hemoglobin 10.9 on 11/07/2021. vitamin B12 1857 with hemoglobin 10.6 on 06/25/2022. Vitamin D deficiency, unspecified Surgical History Surgical History History of appendectomy History of cholecystectomy History of nasal surgery Family History Family History Mother Diabetes mellitus Family history of coronary artery disease Family histor
[2023-07-30] VITALS (20 sets, daily range): BP systolic 69–128; BP diastolic 42–60; PULSE 88–126; RESP 16–20; TEMP 36.2–36.8; O2SAT 96–100; BMI 36.1
--- NOTE | 2023-07-30 00:24 | ECHO_ITS ---
Patient Info Name: Ricardo Mendez Age: 62 years : 1960 Gender: Female Ht: 67 in Wt: 229 lbs BSA: 2.26 m2 HR: 117 bpm BP: 128 / 77 mmHg Heart Rhythm: Tachycardia Technical Quality: Poor Exam Date: 07/30/2023 12:29 PM Exam Location: Echo Lab Patient Status: Inpatient Admit Date: 07/30/2023 Staff Ordering Physician: Joy Jones PA-C Big Data Admin: Kia Dee RDCS Attending Provider: Juliana Virk MD Referring Physician: Karen EDWARDS; Exam Type: CA echo dop color flow w con Study Info Indications R00.0 - Tachycardia, unspecified Complete two-dimensional, color flow and Doppler transthoracic echocardiogram is performed with contrast to opacify the left ventricle and to improve the deliniation of the left ventricle endocardial borders. Contrast/Agitated Saline Contrast/Ag. Saline: Definity Amount: 2.00 ml Administered By: Kia Dee RDCS Existing IV Access: Yes IV Access Condition: patent with no signs of infiltration Summary 1. Technically suboptimal study due to poor sonographic images. 2. Definity contrast administered improved wall motion interpretation. 3. Left ventricular chamber dimension is normal. 4. Left ventricular systolic function is normal, estimated at 60-65%. 5. The left ventricular diastolic function is abnormal. 6. E/e' 12 is mildly elevated. Left Ventricle Definity contrast administered improved wall motion interpretation. E/e' 12 is mildly elevated. Technically suboptimal study due to poor sonographic images. Left ventricular chamber dimension is normal. Left ventricular systolic function is normal, estimated at 60-65%. The left ventricular diastolic function is abnormal. Right Ventricle Right ventricular chamber dimension is normal. Right ventricular systolic function is normal. Left Atria Left atrial chamber dimension is normal. Right Atria Right atrial chamber dimension is normal. Aortic Valve The aortic valve is probable trileaflet. There is no aortic valve stenosis. There is no aortic valve regurgitation. Pulmonic Valve There is no pulmonic regurgitation. Mitral Valve There is no mitral valve stenosis. There is no mitral valve regurgitation. Tricuspid Valve There is no tricuspid valve regurgitation. Pericardium/Pleural There is no pericardial effusion. Inferior Vena Cava Normal inferior vena cava with >50% collapse upon inspiration consistent with normal right atrial pressure, 5 mmHg. Aorta The aortic root size at the sinus of Valsalva is normal. Left Ventricular Outflow Tract Name Value Normal LVOT 2D LVOT Diameter 1.96 cm LVOT Doppler LVOT Peak Gradient 5 mmHg LVOT Mean Gradient 2 mmHg LVOT VTI 15.58 cm LVOT VTI/AV VTI Ratio 0.78 LVOT Stroke Volume 47.20 ml LVOT CO 4.94 l/min LVOT CI 2.19 L/min/m2 Pulmonic Valve Name Value Normal
[2023-07-30] MEDS: REMDESIVIR 200 MG/NS 250 ML 200 MG/250 ML BAG 250 MG IVPB (00:30)
[2023-07-30] MEDS: MONTELUKAST SODIUM 10 MG TABLET PO ×2 (00:30→21:36)
[2023-07-30] MEDS: HYDROcodone/acetaminophen (*CRX) 10-325 MG TABLET 1 TAB PO ×5 (05:00→21:36)
[2023-07-30 05:20] LABS: Hematocrit 31.5 % (37.0-47.0); Hemoglobin 9.7 g/dL (12.0-15.0); Mean Corpuscular HGB Conc 30.8 g/dl (32-36); Mean Corpuscular Hemoglobin 27.1 pg (26-34); Platelet Count Result 242 k/mm3 (150-375); Red Blood Count 3.58 M/mm3 (4.2-5.4); Red Cell Distribution Width 13.2 % (11.5-14.5)
[2023-07-30 05:35] LABS: Anion Gap 7 mmol/L (8-16); Blood Urea Nitrogen 10 mg/dL (7-17); Calcium 8.3 mg/dL (8.4-10.2); Carbon Dioxide 29 mmol/L (22-30); Chloride 100 mmol/L (98-107); Estimated CRCL calculation 88 ml/min; Estimated Glomerular Filt Rate > 60; Glucose 146 mg/dL (65-110); Magnesium 2.4 mg/dL (1.6-2.3); Potassium 4.9 mmol/L (3.4-5.0); Sodium 136 mmol/L (137-145)
[2023-07-30] MEDS: ALBUTEROL SULFATE (*SP) AEROSOL 1 PUFF 2 PUFF INHALATION ×3 (06:01→17:30)
[2023-07-30] MEDS: FLUTICASONE/SALMETEROL 230-21 MCG INHALER 1 PUFF 2 PUFF INHALATION ×2 (08:47→20:21)
[2023-07-30] MEDS: UMECLIDINIUM BROMIDE 62.5 MCG ELLIPTA 1 PUFF INHALATION (08:47)
[2023-07-30] MEDS: lisinopriL 20 MG TABLET 40 MG PO (09:04)
[2023-07-30] MEDS: FAMOTIDINE 20 MG TABLET 40 MG PO (09:04)
[2023-07-30] MEDS: ENOXAPARIN 100 MG/ML SYRINGE SUB-Q ×2 (09:04→21:36)
[2023-07-30] MEDS: DEXAMETHASONE 2 MG TABLET 6 MG PO (09:04)
[2023-07-30] MEDS: OPTI-GEN TAB 1 TABLET PO ×2 (09:04→17:19)
--- NOTE | 2023-07-30 09:11 | PM.IMPN ---
Progress Note: A&P Assessment and Plan (1) Acute and chronic respiratory failure with hypoxia: Code(s): J96.21 - Acute and chronic respiratory failure with hypoxia Status: Acute (2) COVID: Code(s): U07.1 - COVID-19 Status: Acute (3) Left leg DVT: Code(s): I82.402 - Acute embolism and thrombosis of unspecified deep veins of left lower extremity Status: Acute (4) Chronic obstructive pulmonary disease: Code(s): J44.9 - Chronic obstructive pulmonary disease, unspecified Status: Acute (5) Chronic pain syndrome: Code(s): G89.4 - Chronic pain syndrome Status: Acute (6) Hypertension: Code(s): I10 - Essential (primary) hypertension Status: Acute (7) Lung cancer: Code(s): C34.90 - Malignant neoplasm of unspecified part of unspecified bronchus or lung Status: Acute Plan 62-year-old female presents to the ED with increased right-sided chest pain. Patient has known left-sided lung cancer and follows up with [facility]. She has been receiving both chemo and radiation therapy. She did not go to radiation therapy today because she was not feeling well. Her last chemotherapy was on July 18. Associated shortness of breath and generalized weakness. On arrival to the ED she was tachycardic with pulse rate of 128 per minute blood pressure was adequate she had increased oxygen requirement and was on 3 L oxygen via nasal cannula. She was afebrile WBC count 5.4 anemic at 9.9 which is about baseline with no signs of bleeding. D-dimer came back elevated 1.51 troponin was negative influenza RSV negative came back positive for COVID chest x-ray showed hyperinflation with no acute cardiopulmonary abnormality. BNP was 401. EKG showed sinus tachycardia with right bundle branch block.Lower extremity duplex was performed which showed left peroneal vein thrombosis. She may very well have pulmonary embolism. Was started on empiric Lovenox 1 milligram/kilogram twice daily dosing. She has contrast allergy and opted not to premedicate for chest CTA. V/Q scan has been ordered which came back with multiple perfusion defects throughout both lungs the largest include moderate to large posterior segment of the left upper lobe anterior basilar segment of the left lower lobe posterior segment of the right upper lobe. Acute on chronic hypoxic respiratory failure COVID infection with worsening oxygen requirement started on remdesivir and dexamethasone scheduled bronchodilators Hypertension home medication Chronic pain syndrome home medication DVT prophylaxis Lovenox Subjective Date/time seen: 07/30/23 09:11 Interval history: 62-year-old female presents to the ED with increased right-sided chest pain. Patient has known left-sided lung cancer and follows up with [facility]. She has been receiving both chemo and radiation therapy. She did not go to radiation therapy today because she was not feeling well. Her last chemotherapy was on July 18. Associated shortness of breath and generalized weakness. On arrival to the ED she was tachycardic with pulse rate of 128 per minute blood pressure was adequate she had increased oxygen requirement and was on 3 L oxygen via nasal cannula. She was afebrile WBC count 5.4 anemic at 9.9 which is about baseline with no signs of bleeding. D-dimer came back elevated 1.51 troponin was negative influenza RSV negative came back positive for COVID chest x-ray showed hyperinflation with no acute cardiopulmonary abnormality. BNP was 401. EKG showed sinus tachycardia with right bundle branch block.Lower extremity duplex was performed which showed left peroneal vein thrombosis. She may very well have pulmonary embolism. Was started on empiric Lovenox 1 milligram/kilogram twice daily dosing. She has contrast allergy and opted not to premedicate for chest CTA. V/Q scan has been ordered. COVID infection with worsening oxygen requirement started on remdesivir and dexamethason
[2023-07-30] MEDS: PERFLUTREN LIPID MICROSPHERES 1.5 ML VIAL DILUTED TO 10 ML TOTAL VOLUME IV PUSH (12:49)
--- NOTE | 2023-07-30 13:33 | IVDEFINITY ---
Prior to administration of IV Definity the patient was educated on the risks and benefits of the imaging enhancing agent including potential adverse side effects. The patient verbalized understanding. Allergies were verified. No exclusion criteria were identified and at least one of the following inclusion criteria were met: 1) physician request, 2) patient technically difficult to image (per the [place] [employer] guidelines of two or more segments not discernable within the apical view), or 3) questionable left ventricular function. ?
[2023-07-30] MEDS: REMDESIVIR 100 MG/NS 250 ML 100 MG/250 ML BAG 250 MG IVPB (21:36)
[2023-07-31] VITALS (19 sets, daily range): BP systolic 108–132; BP diastolic 51–77; PULSE 77–119; RESP 16–20; TEMP 36.2–36.6; O2SAT 94–99
[2023-07-31] MEDS: HYDROcodone/acetaminophen (*CRX) 10-325 MG TABLET 1 TAB PO ×5 (02:17→21:06)
[2023-07-31] MEDS: ALBUTEROL SULFATE (*SP) AEROSOL 1 PUFF 2 PUFF INHALATION ×5 (03:03→21:35)
[2023-07-31 04:47] LABS: Basophils Percent Auto 0.2 % (0.2-1.2); Hematocrit 29.5 % (37.0-47.0); Hemoglobin 9.1 g/dL (12.0-15.0); Immature Granulocyte Absolute 0.19 K/mm3 (0.00-0.031); Immature Granulocyte Percent A 4.6 % (0-0.5); Lymphocytes Absolute Auto 0.19 K/mm3 (0.9-3.2); Lymphocytes Percent Auto 4.6 % (18.3-44.2); Mean Corpuscular HGB Conc 30.8 g/dl (32-36); Mean Corpuscular Hemoglobin 27.2 pg (26-34); Mean Corpuscular Volume 88.1 fl (80-100); Mean Platelet Volume 9.7 fl (7.4-10.4); Monocytes Absolute Auto 0.5 K/mm3 (0.1-0.6); Monocytes Percent Auto 12.7 % (2.6-8.5); Neutrophils Absolute Auto 3.2 K/mm3 (1.3-6.7); Neutrophils Percent Auto 77.9 % (45.5-73.1); Platelet Count Result 316 k/mm3 (150-375); Red Blood Count 3.35 M/mm3 (4.2-5.4); Red Cell Distribution Width 13.4 % (11.5-14.5); White Blood Count 4.1 K/mm3 (4.5-10.0)
[2023-07-31 04:56] LABS: Alanine Aminotransferase 21 U/L (6-35); Albumin Level 3.1 g/dL (3.5-5.1); Alkaline Phosphatase 83 U/L (38-126); Anion Gap 3 mmol/L (8-16); Aspartate Amino Transferase 20 U/L (14-36); Bilirubin,Total 0.3 mg/dL (0.2-1.3); Blood Urea Nitrogen 15 mg/dL (7-17); Calcium 8.9 mg/dL (8.4-10.2); Carbon Dioxide 35 mmol/L (22-30); Chloride 99 mmol/L (98-107); Estimated CRCL calculation 78 ml/min; Estimated Glomerular Filt Rate > 60; Glucose 131 mg/dL (65-110); Magnesium 2.3 mg/dL (1.6-2.3); Potassium 5.1 mmol/L (3.4-5.0); Sodium 137 mmol/L (137-145)
[2023-07-31 05:03] LABS: Prothrombin Time 13.8 Seconds (11.1-14.7)
[2023-07-31 05:12] LABS: Anisocytosis 1+ (NORMAL); Hypochromasia 1+ (NORMAL); Ovalocytes 1+ (NORMAL); Platelet Estimate Adequate (Adequate); Schistocytes None Seen (NORMAL)
[2023-07-31] MEDS: UMECLIDINIUM BROMIDE 62.5 MCG ELLIPTA 1 PUFF INHALATION (08:41)
[2023-07-31] MEDS: FLUTICASONE/SALMETEROL 230-21 MCG INHALER 1 PUFF 2 PUFF INHALATION ×2 (08:42→21:35)
[2023-07-31] MEDS: ENOXAPARIN 100 MG/ML SYRINGE SUB-Q ×2 (10:38→21:08)
[2023-07-31] MEDS: DEXAMETHASONE 2 MG TABLET 6 MG PO (10:39)
[2023-07-31] MEDS: OPTI-GEN TAB 1 TABLET PO ×2 (10:39→17:14)
[2023-07-31] MEDS: lisinopriL 20 MG TABLET 40 MG PO (10:39)
[2023-07-31] MEDS: FAMOTIDINE 20 MG TABLET 40 MG PO (10:40)
--- NOTE | 2023-07-31 14:15 | PM.IMPN ---
Progress Note: A&P Assessment and Plan (1) Chronic respiratory failure: Qualifiers: Respiratory failure complication: hypoxia Qualified Code(s): J96.11 - Chronic respiratory failure with hypoxia Code(s): J96.10 - Chronic respiratory failure, unspecified whether with hypoxia or hypercapnia Status: Acute Assessment and Plan: Patient presents with complaints of right sided chest pain and was found to have COVID and PE. She was uncomfortable appearing but not in acute resp distress. She is on 3L chronically and remains of 3L. Acute resp failure ruled out (2) Pulmonary embolism: Code(s): I26.99 - Other pulmonary embolism without acute cor pulmonale Status: Acute Assessment and Plan: CXR showing hyperinflation with acuter cardiopulmonary disease. Notes state patient did not want to be pre-treated for her IV contrast allergy so VQ ordered. VQ scan showing multiple perfusion defects t/o the lung with high probability of PE. She has a high pre-test probability with cancer, DVT and COVID plus concerning symptoms. Lovenox started. Change to Eliquis tomorrow. Care coordination to assess cost of Eliquis for patient (3) COVID: Code(s): U07.1 - COVID-19 Status: Acute Assessment and Plan: Patient was negative for influenza and RSV PCR but postive for COVID PCR. Decadron and Remdesivir started. Albuterol HFA available as needed. She is on 3L O2 at home so at baseline O2 requirement CXR showed hyperinflation but no airspace disease. (4) Left leg DVT: Code(s): I82.402 - Acute embolism and thrombosis of unspecified deep veins of left lower extremity Status: Acute Assessment and Plan: As above (5) Chronic obstructive pulmonary disease: Code(s): J44.9 - Chronic obstructive pulmonary disease, unspecified Status: Acute Assessment and Plan: Stable. No wheezing (but on sterodis) Pulmonary function study on March 13, 2019 revealed very severe COPD Continue incruse and advair. Albuterol available as needed. (6) Chronic pain syndrome: Code(s): G89.4 - Chronic pain syndrome Status: Acute Assessment and Plan: Stable. has Tylenol and [place] available (7) Hypertension: Code(s): I10 - Essential (primary) hypertension Status: Acute Assessment and Plan: Patient's blood pressure was reviewed on 07/31 Blood pressure was low yesterday to 69/46 but more stable now. Will continue to monitor (8) Lung cancer: Code(s): C34.90 - Malignant neoplasm of unspecified part of unspecified bronchus or lung Status: Acute Assessment and Plan: Patient with hx of lung cancer currently undergoing treatment with chemo and XRT. Last chemo was 07/18/23. Counts stable. Plan DVT prophylaxis - lovenox Code status - full Subjective Date/time seen: 07/31/23 14:15 Interval history: 62yo female presents to the ED with increased right-sided chest pain. Assuming care. Chart reviewed. On O2 at 3L at home. She increases this to 4L with exertion when not feeling well. Did not get the COVID vaccinie. Last chemo 07/18. Having XRT Mond-Sat . Has a nonproductive cough. Exam Narrative: AF 97.1 132/51 118 20 94% 3L Gen - NARD Chest - right base inspiratory crackles o/w clear. nml RR CV - RRR S1/S2 Abd - Soft, NT/ND, Positive BS Ext - No pedal edema Psych - Nml mood and affect Skin - Warm and dry Objective Data Vital Signs Vital Signs: Vital Signs - 24 hr 07/30/23 16:00 07/30/23 17:45 07/30/23 17:45 Temperature 98.2 F Pulse Rate 120 H Respiratory Rate 18 Blood Pressure 120/57 L 69/46 L 74/42 L Pulse Oximetry 96 Oxygen Delivery Oxygen Flow Rate Fraction of Inspired Oxygen 07/30/23 17:30 07/30/23 16:00 07/30/23 18:00 Temperature Pulse Rate 119 H 92 111 H Respiratory Rate 20 Blood Pressure Pulse Oximetry Oxygen Deliver
--- NOTE | 2023-07-31 18:44 | PC.NURSE ---
Report called to Savita PALACIOS. The pt will transferred to 311. All belonging transferred with the pt. No manifestations of distress noted at the time of transfer.
[2023-07-31] MEDS: MONTELUKAST SODIUM 10 MG TABLET PO (21:08)
[2023-07-31] MEDS: DOCUSATE SODIUM 100 MG CAPSULE PO (21:08)
[2023-07-31] MEDS: REMDESIVIR 100 MG/NS 250 ML 100 MG/250 ML BAG 250 MG IVPB (21:11)
[2023-08-01] VITALS (10 sets, daily range): BP systolic 110–136; BP diastolic 52–69; PULSE 78–118; RESP 18–24; TEMP 36–36.8; O2SAT 95–100
--- NOTE | 2023-08-01 02:25 | PC.NURSE ---
Medications administered from 07/31/20231999 - 08/01/2023 0100 were done by this RN
[2023-08-01] MEDS: HYDROcodone/acetaminophen (*CRX) 10-325 MG TABLET 1 TAB PO ×4 (03:24→20:39)
[2023-08-01 07:00] LABS: Basophils Percent Auto 0.3 % (0.2-1.2); Hematocrit 30.4 % (37.0-47.0); Hemoglobin 8.9 g/dL (12.0-15.0); Immature Granulocyte Absolute 0.19 K/mm3 (0.00-0.031); Immature Granulocyte Percent A 3.1 % (0-0.5); Lymphocytes Absolute Auto 0.21 K/mm3 (0.9-3.2); Lymphocytes Percent Auto 3.5 % (18.3-44.2); Mean Corpuscular HGB Conc 29.3 g/dl (32-36); Mean Corpuscular Hemoglobin 27.3 pg (26-34); Mean Corpuscular Volume 93.3 fl (80-100); Mean Platelet Volume 10.7 fl (7.4-10.4); Monocytes Absolute Auto 0.6 K/mm3 (0.1-0.6); Monocytes Percent Auto 9.6 % (2.6-8.5); Neutrophils Absolute Auto 5.1 K/mm3 (1.3-6.7); Neutrophils Percent Auto 83.5 % (45.5-73.1); Platelet Count Result 380 k/mm3 (150-375); Red Blood Count 3.26 M/mm3 (4.2-5.4); Red Cell Distribution Width 13.7 % (11.5-14.5); White Blood Count 6.1 K/mm3 (4.5-10.0)
[2023-08-01 07:11] LABS: Anion Gap 4 mmol/L (8-16); Blood Urea Nitrogen 20 mg/dL (7-17); Calcium 8.8 mg/dL (8.4-10.2); Carbon Dioxide 36 mmol/L (22-30); Chloride 100 mmol/L (98-107); Estimated CRCL calculation 78 ml/min; Estimated Glomerular Filt Rate > 60; Glucose 133 mg/dL (65-110); Magnesium 2.3 mg/dL (1.6-2.3); Potassium 4.8 mmol/L (3.4-5.0); Sodium 140 mmol/L (137-145)
[2023-08-01] MEDS: FLUTICASONE/SALMETEROL 230-21 MCG INHALER 1 PUFF 2 PUFF INHALATION ×2 (07:21→19:48)
[2023-08-01] MEDS: UMECLIDINIUM BROMIDE 62.5 MCG ELLIPTA 1 PUFF INHALATION (07:21)
[2023-08-01 07:53] LABS: Anisocytosis 1+ (NORMAL); Platelet Estimate Adequate (Adequate); Poikilocytosis 1+ (NORMAL)
[2023-08-01 07:54] LABS: Schistocytes None Seen (NORMAL)
[2023-08-01] MEDS: FAMOTIDINE 20 MG TABLET 40 MG PO (08:44)
[2023-08-01] MEDS: DOCUSATE SODIUM 100 MG CAPSULE PO ×2 (08:44→20:36)
[2023-08-01] MEDS: OPTI-GEN TAB 1 TABLET PO ×2 (08:44→16:41)
[2023-08-01] MEDS: lisinopriL 20 MG TABLET PO (08:45)
[2023-08-01] MEDS: DEXAMETHASONE 2 MG TABLET 6 MG PO (08:47)
[2023-08-01] MEDS: APIXABAN 5 MG TABLET 10 MG PO ×2 (08:47→20:36)
--- NOTE | 2023-08-01 15:23 | PM.IMPN ---
Progress Note: A&P Assessment and Plan (1) Chronic respiratory failure: Qualifiers: Respiratory failure complication: hypoxia Qualified Code(s): J96.11 - Chronic respiratory failure with hypoxia Code(s): J96.10 - Chronic respiratory failure, unspecified whether with hypoxia or hypercapnia Status: Acute Assessment and Plan: Patient presents with complaints of right sided chest pain and was found to have COVID and PE. She was uncomfortable appearing but not in acute resp distress. She is on 3L chronically and remains of 3L. Acute resp failure ruled out (2) Pulmonary embolism: Code(s): I26.99 - Other pulmonary embolism without acute cor pulmonale Status: Acute Assessment and Plan: CXR showing hyperinflation with no acute cardiopulmonary disease. Notes state patient did not want to be pre-treated for the CTA for her IV contrast allergy so VQ ordered. VQ scan showing multiple perfusion defects t/o the lung with high probability of PE. LE venous doppler showing left peroneal vein thrombosis She has a high pre-test probability with her cancer, DVT and COVID plus concerning symptoms. Lovenox started. Changed to Eliquis today Care coordination states patient can afford Eliquis (3) COVID: Code(s): U07.1 - COVID-19 Status: Acute Assessment and Plan: Patient was negative for influenza and RSV PCR but positive for COVID PCR. Decadron and Remdesivir started. Albuterol HFA available as needed. She is on 3L O2 at home so at baseline O2 requirement CXR showed hyperinflation but no airspace disease. (4) Left leg DVT: Code(s): I82.402 - Acute embolism and thrombosis of unspecified deep veins of left lower extremity Status: Acute Assessment and Plan: As above (5) Chronic obstructive pulmonary disease: Code(s): J44.9 - Chronic obstructive pulmonary disease, unspecified Status: Acute Assessment and Plan: Stable. No wheezing (but on sterodis) Pulmonary function study on March 13, 2019 revealed very severe COPD Continue incruse and advair. Albuterol available as needed. (6) Chronic pain syndrome: Code(s): G89.4 - Chronic pain syndrome Status: Acute Assessment and Plan: Stable. Tylenol and [place] available (7) Hypertension: Code(s): I10 - Essential (primary) hypertension Status: Acute Assessment and Plan: Patient's blood pressure was reviewed on 08/01 Blood pressure was low to 69/46 but more stable now. lisinopril dose decreased BP stable Will continue to monitor (8) Lung cancer: Code(s): C34.90 - Malignant neoplasm of unspecified part of unspecified bronchus or lung Status: Acute Assessment and Plan: Patient with hx of lung cancer currently undergoing treatment with chemo and XRT. Last chemo was 07/18/23. WBC normal now. Hgb drifting down. Follow CBC Plan DVT prophylaxis - lovenox Code status - full Subjective Date/time seen: 08/01/23 15:23 Interval history: 62yo female with chronic respiratory failure who presents to the ED with increased right-sided chest pain. Cough is better. She feels her cough is more like her chronic cough. Cough is usually productive of whitish sputum. no chest pain but does have some tightness on occasion but states this also was chronic. Exam Narrative: AF 97.0 117/69 86 18 100% 3L Gen - NARD Chest -distant, clear breath sounds. CV - RRR S1/S2. Telemetry showing no significant dysrhythmia Abd - Soft, NT/ND, Positive BS Ext - No pedal edema. Psych - Nml mood and affect Skin - Warm and dry. Sensitive skin. Multiple areas of bruising Objective Data Vital Signs Vital Signs: Vital Signs - 24 hr 07/31/23 15:45 07/31/23 16:00 07/31/23 18:06 Temperature 97.6 F Pulse Rate 77 107 H 96 Respiratory Rate 16 Blood Pressure 120/66 Pulse Oximetry 95 Oxygen Delivery O
[2023-08-01] MEDS: REMDESIVIR 100 MG/NS 250 ML 100 MG/250 ML BAG 250 MG IVPB (20:36)
[2023-08-01] MEDS: MONTELUKAST SODIUM 10 MG TABLET PO (20:36)
[2023-08-02] VITALS (9 sets, daily range): BP systolic 108–137; BP diastolic 55–69; PULSE 95–122; RESP 13–20; TEMP 36.1–36.8; O2SAT 94–100
[2023-08-02] MEDS: BISACODYL 10 MG SUPPOSITORY RECTAL (05:06)
[2023-08-02] MEDS: HYDROcodone/acetaminophen (*CRX) 10-325 MG TABLET 1 TAB PO ×5 (05:06→22:04)
[2023-08-02 06:52] LABS: Basophils Percent Auto 0.6 % (0.2-1.2); Hematocrit 34.3 % (37.0-47.0); Hemoglobin 9.7 g/dL (12.0-15.0); Immature Granulocyte Absolute 0.23 K/mm3 (0.00-0.031); Immature Granulocyte Percent A 3.5 % (0-0.5); Lymphocytes Absolute Auto 0.38 K/mm3 (0.9-3.2); Lymphocytes Percent Auto 5.8 % (18.3-44.2); Mean Corpuscular HGB Conc 28.3 g/dl (32-36); Mean Corpuscular Hemoglobin 26.9 pg (26-34); Mean Corpuscular Volume 95.3 fl (80-100); Mean Platelet Volume 9.5 fl (7.4-10.4); Monocytes Percent Auto 15.5 % (2.6-8.5); Neutrophils Absolute Auto 4.9 K/mm3 (1.3-6.7); Neutrophils Percent Auto 74.6 % (45.5-73.1); Platelet Count Result 352 k/mm3 (150-375); Red Cell Distribution Width 13.6 % (11.5-14.5); White Blood Count 6.6 K/mm3 (4.5-10.0)
[2023-08-02 07:06] LABS: Alanine Aminotransferase 24 U/L (6-35); Albumin Level 3.1 g/dL (3.5-5.1); Alkaline Phosphatase 79 U/L (38-126); Aspartate Amino Transferase 29 U/L (14-36); Bilirubin,Total 0.4 mg/dL (0.2-1.3); Blood Urea Nitrogen 20 mg/dL (7-17); Calcium 8.8 mg/dL (8.4-10.2); Carbon Dioxide > 40 mmol/L (22-30); Chloride 97 mmol/L (98-107); Estimated CRCL calculation 78 ml/min; Estimated Glomerular Filt Rate > 60; Glucose 92 mg/dL (65-110); Phosphorus 3.1 mg/dL (2.5-4.5); Potassium 4.6 mmol/L (3.4-5.0); Sodium 138 mmol/L (137-145)
[2023-08-02 07:13] LABS: INR 1.2; Prothrombin Time 15.9 Seconds (11.1-14.7)
[2023-08-02] MEDS: UMECLIDINIUM BROMIDE 62.5 MCG ELLIPTA 1 PUFF INHALATION (08:16)
[2023-08-02] MEDS: FLUTICASONE/SALMETEROL 230-21 MCG INHALER 1 PUFF 2 PUFF INHALATION ×2 (08:17→21:00)
[2023-08-02] MEDS: DEXAMETHASONE 2 MG TABLET 6 MG PO (08:26)
[2023-08-02] MEDS: FAMOTIDINE 20 MG TABLET 40 MG PO (08:27)
[2023-08-02] MEDS: OPTI-GEN TAB 1 TABLET PO ×2 (08:27→18:04)
[2023-08-02] MEDS: DOCUSATE SODIUM 100 MG CAPSULE PO ×2 (08:27→22:04)
[2023-08-02] MEDS: lisinopriL 20 MG TABLET PO (08:27)
[2023-08-02] MEDS: APIXABAN 5 MG TABLET 10 MG PO ×2 (08:27→22:04)
[2023-08-02 08:50] LABS: Platelet Estimate Adequate (Adequate)
[2023-08-02 08:51] LABS: Anisocytosis 1+ (NORMAL); Poikilocytosis 1+ (NORMAL); Schistocytes None Seen (NORMAL)
--- NOTE | 2023-08-02 10:55 | PM.IMPN ---
Progress Note: A&P Assessment and Plan (1) Chronic respiratory failure: Qualifiers: Respiratory failure complication: hypoxia Qualified Code(s): J96.11 - Chronic respiratory failure with hypoxia Code(s): J96.10 - Chronic respiratory failure, unspecified whether with hypoxia or hypercapnia Status: Acute Assessment and Plan: Patient presents with complaints of right sided chest pain and was found to have COVID and PE. She was uncomfortable appearing but not in acute resp distress. She is on 3L chronically and remains of 3L. Acute resp failure ruled out (2) Pulmonary embolism: Code(s): I26.99 - Other pulmonary embolism without acute cor pulmonale Status: Acute Assessment and Plan: CXR showing hyperinflation with no acute cardiopulmonary disease. Notes state patient did not want to be pre-treated for the CTA for her IV contrast allergy so VQ scan ordered. VQ scan showing multiple perfusion defects t/o the lung with high probability of PE. LE venous doppler showing left peroneal vein thrombosis She has a high pre-test probability with her cancer, DVT and COVID plus concerning symptoms. Lovenox started and changed to Eliquis Care coordination states patient can afford Eliquis (3) COVID: Code(s): U07.1 - COVID-19 Status: Acute Assessment and Plan: Patient was negative for influenza and RSV PCR but positive for COVID PCR. Decadron and Remdesivir started. Albuterol HFA available as needed. She is on 3L O2 at home so at baseline O2 requirement CXR showed hyperinflation but no airspace disease. (4) Left leg DVT: Code(s): I82.402 - Acute embolism and thrombosis of unspecified deep veins of left lower extremity Status: Acute Assessment and Plan: As above (5) Chronic obstructive pulmonary disease: Code(s): J44.9 - Chronic obstructive pulmonary disease, unspecified Status: Acute Assessment and Plan: Stable. No wheezing (but on sterodis) Pulmonary function study on March 13, 2019 revealed very severe COPD Continue incruse and advair. Albuterol available as needed. (6) Chronic pain syndrome: Code(s): G89.4 - Chronic pain syndrome Status: Acute Assessment and Plan: Stable. Tylenol and [place] available (7) Hypertension: Code(s): I10 - Essential (primary) hypertension Status: Acute Assessment and Plan: Patient's blood pressure was reviewed on 08/02 Blood pressure was low to 69/46 but more stable now. lisinopril dose decreased May have lost weight resulting in better BP control. BP stable now Will continue to monitor (8) Lung cancer: Code(s): C34.90 - Malignant neoplasm of unspecified part of unspecified bronchus or lung Status: Acute Assessment and Plan: Patient with hx of lung cancer currently undergoing treatment with chemo and XRT. Last chemo was 07/18/23. WBC normal now. Hgb stable in the 8-9 range. Plt count normal. Follow CBC Plan Rectal bleeding - related to hemorrhoids. Monitor HH since on Eliquis. Add Tucks pads prn and scheduled Anusol. Continue colace to keep stools soft. DVT prophylaxis - Eliquis Code status - full Subjective Date/time seen: 08/02/23 10:55 Interval history: 62yo female with chronic respiratory failure who presents to the ED with increased right-sided chest pain. Persistent chronic cough. Having BMs now. Had hard stool and now with BRBPR she feels related to her hemorrhoids. Had colonoscopy in her 30's but nothing since. Exam Narrative: AF 97.5 130/63 96 20 95% 3L Gen - NARD Chest -distant, clear breath sounds. CV - RRR S1/S2 Abd - Soft, NT/ND, Positive BS Ext - No pedal edema. Psych - Nml mood and affect Skin - Warm and dry Objective Data Vital Signs Vital Signs: Vital Signs - 24 hr 08/01/23 12:00 08/01/23 12:00 08/01/23 13:52 Temperature 97 F L Pulse Rate 10
[2023-08-02] MEDS: WITCH HAZEL 40 PADS 1 PAD TOPICAL (12:44)
[2023-08-02] MEDS: HYDROCORTISONE ACETATE 25 MG SUPPOSITORY RECTAL (12:44)
[2023-08-02] MEDS: MONTELUKAST SODIUM 10 MG TABLET PO (22:03)
[2023-08-02] MEDS: REMDESIVIR 100 MG/NS 250 ML 100 MG/250 ML BAG 250 MG IVPB (22:05)
[2023-08-03] VITALS: BP 105/48; PULSE 101; RESP 14; TEMP 36.3; O2SAT 100
[2023-08-03 04:00] VITALS: BP 120/62; PULSE 110; RESP 17; TEMP 36.1; O2SAT 98
[2023-08-03 06:02] LABS: Hematocrit 34.6 % (37.0-47.0); Hemoglobin 9.4 g/dL (12.0-15.0); Mean Corpuscular HGB Conc 27.2 g/dl (32-36); Mean Corpuscular Hemoglobin 26.7 pg (26-34); Mean Corpuscular Volume 98.3 fl (80-100); Mean Platelet Volume 9.2 fl (7.4-10.4); Platelet Count Result 292 k/mm3 (150-375); Red Blood Count 3.52 M/mm3 (4.2-5.4); White Blood Count 6.9 K/mm3 (4.5-10.0)
[2023-08-03 08:00] VITALS: BP 105/53; PULSE 125; RESP 20; TEMP 36.6; O2SAT 97
[2023-08-03] MEDS: FAMOTIDINE 20 MG TABLET 40 MG PO (08:42)
[2023-08-03] MEDS: DOCUSATE SODIUM 100 MG CAPSULE PO (08:43)
[2023-08-03] MEDS: APIXABAN 5 MG TABLET 10 MG PO (08:43)
[2023-08-03] MEDS: lisinopriL 20 MG TABLET PO (08:43)
[2023-08-03] MEDS: DEXAMETHASONE 2 MG TABLET 6 MG PO (08:43)
[2023-08-03] MEDS: OPTI-GEN TAB 1 TABLET PO (08:43)
[2023-08-03] MEDS: HYDROcodone/acetaminophen (*CRX) 10-325 MG TABLET 1 TAB PO (08:43)
[2023-08-03 09:05] VITALS: O2SAT 95
[2023-08-03] MEDS: FLUTICASONE/SALMETEROL 230-21 MCG INHALER 1 PUFF 2 PUFF INHALATION (09:05)
[2023-08-03] MEDS: UMECLIDINIUM BROMIDE 62.5 MCG ELLIPTA 1 PUFF INHALATION (09:05)
[2023-08-03] MEDS: HYDROCORTISONE ACETATE 25 MG SUPPOSITORY RECTAL (11:50)
[2023-08-03 12:00] VITALS: BP 121/62; PULSE 118; RESP 18; TEMP 36.1; O2SAT 97
--- NOTE | 2023-08-03 12:42 | PM.DS ---
DS: Admitting Diagnosis Discharge Date 08/03/23 Admitting Diagnosis Right-sided chest pain DS: Discharge Diagnosis Discharge Diagnosis (1) Chronic respiratory failure: Qualifiers: Respiratory failure complication: hypoxia Qualified Code(s): J96.11 - Chronic respiratory failure with hypoxia Code(s): J96.10 - Chronic respiratory failure, unspecified whether with hypoxia or hypercapnia Status: Acute (2) Pulmonary embolism: Code(s): I26.99 - Other pulmonary embolism without acute cor pulmonale Status: Acute (3) COVID: Code(s): U07.1 - COVID-19 Status: Acute (4) Left leg DVT: Code(s): I82.402 - Acute embolism and thrombosis of unspecified deep veins of left lower extremity Status: Acute (5) Chronic obstructive pulmonary disease: Code(s): J44.9 - Chronic obstructive pulmonary disease, unspecified Status: Acute (6) Chronic pain syndrome: Code(s): G89.4 - Chronic pain syndrome Status: Acute (7) Hypertension: Code(s): I10 - Essential (primary) hypertension Status: Acute (8) Lung cancer: Code(s): C34.90 - Malignant neoplasm of unspecified part of unspecified bronchus or lung Status: Acute DS: Summary Hospital Course Reason for hospitalization: 62yo female with chronic respiratory failure who presents to the ED with increased right-sided chest pain. Please see H&P for details. Hospital Course: Patient presents with complaints of right sided chest pain and was found to have COVID and PE. She was uncomfortable appearing but not in acute respiratory distress. She is on 3L chronically and remained of 3L O2 during her hospital stay. CXR showing hyperinflation with no acute cardiopulmonary disease. Notes state patient did not want to be pre-treated for the CTA for her IV contrast allergy so VQ scan ordered. VQ scan showing multiple perfusion defects t/o the lung with high probability of PE. LE venous doppler showing left peroneal vein thrombosis. She has a high pre-test probability with her cancer, DVT and COVID plus concerning symptoms. PE ruled in. EKG showing sinus tachycardia and Rt BBB. Echo showing EF 60-65% with abnormal diastolic function. Lovenox started and changed to Eliquis. Care coordination states patient can afford Eliquis. Patient was negative for influenza and RSV PCR but positive for COVID PCR. Decadron and Remdesivir started. Albuterol HFA available as needed. She completed 4 days of Remdesivir (it appears that she did not get her first dose of Remdesivir on admission due to IV issues). She remained stable on 3L so opted not to hold her discharge for the 5th dose. Patient was having constipation and developed bright red blood with BM related to hemorrhoids. Hgb was low but stable in the 8-9 range. She has lung CA and is actively receiving XRT and chemotherapy. WBC was 3000 but now normal. We added Tucks pads prn and scheduled Anusol with improvement. She overall did well and was able to be discharged home on 08/03/23. Status at Discharge Cognitive/behavioral status at discharge: Stable Time Spent with Patient Time attestation: Total time spent providing and/or coordinating discharge services: 34 minutes Time spent: Greater than 30 minutes Exam Narrative: AF 96.9 121/62 118 18 97% 3L Gen - NARD Chest -distant, clear breath sounds. CV - RRR S1/S2 Abd - Soft, NT/ND, Positive BS Ext - No pedal edema. Psych - Nml mood and affect Skin - Warm and dry DS: Data Data Completed and Pending Labs on day of discharge: Labs from last 24 hours 08/03/23 05:57 WBC 6.9 RBC 3.52 L Hgb 9.4 L Hct 34.6 L MCV 98.3 MCH 26.7 MCHC 27.2 L RDW 14.0 Plt Count 292 MPV 9.2 Discharge Plan Discharge Attending physician on discharge: Abraham Lacey Discharging Clinician: Abraham Lacey Anticipated Discharge Date/Time: 08/03/23 12:54 Patient Disposition: H
== END 2023-08-03 17:17 | disposition home or self-care (01) | DRG 137 ==
LOC: ANHED 15:30 → ANHIMU 19:37 → ANH3MEDSUR 08-02 12:11 → ANHIMU 08-05 15:12
PROVIDERS: Internal Medicine; Physician Assistant; Admitting Provider Student in an Organized Health Care Education/Training Program; Emergency Provider Emergency Medicine; PCP Family Medicine; Visit Provider Internal Medicine
DX: U07.1 COVID-19 (principal); I82.452 Acute embolism and thrombosis of left peroneal vein; C34.92 Malignant neoplasm of unspecified part of left bronchus or lung; E66.01 Morbid (severe) obesity due to excess calories; I26.99 Other pulmonary embolism without acute cor pulmonale; J96.11 Chronic respiratory failure with hypoxia; G89.4 Chronic pain syndrome; K21.9 Gastro-esophageal reflux disease without esophagitis; G47.33 Obstructive sleep apnea (adult) (pediatric); K64.9 Unspecified hemorrhoids; J44.9 Chronic obstructive pulmonary disease, unspecified; I12.9 Hypertensive chronic kidney disease with stage 1 through stage 4 chronic kidney disease, or unspecified chronic kidney disease; N18.9 Chronic kidney disease, unspecified; Z68.36 Body mass index [BMI] 36.0-36.9, adult; Z90.49 Acquired absence of other specified parts of digestive tract; Z87.891 Personal history of nicotine dependence; Z99.81 Dependence on supplemental oxygen
CPT/HCPCS: 36415; 71045; 78580; 80048; 80053; 80069; 80076; 82248; 83735; 83880; 84484; 85025; 85027; 85380; 85610; 87637; 93005; 93970; 94640; 96361; 96372; 96374; 99285; A9270; A9540; C8929; G0378; G0379; J0248; J1100; J1650; J7030; J8540; Q9957